=== PATIENT | male | born 1950 | race Caucasian/White ===

== ENCOUNTER 2018-08-02 11:22 | Inpatient (IN) | payer OTHER ==
--- OUTSIDE RECORDS SUMMARY | 2018-08-02 11:52 | XMS REPORT | Clinical Summary ---
:1950 Author Organization [facility] Address [address] [place] [address] Care Team Providers Name Role Phone Armando Quiros Primary Care Provider Davidson Banda Unavailable Allergies Active Allergy Reactions Severity Noted Date Comments Cephalexin Itching Medium 05/28/2017 Medications Medication Sig Dispensed Refills Start Date End Date Status levothyroxine Take 100 mcg by 0 Active (SYNTHROID, mouth Every LEVOTHROID) 100 MCG morning on an tablet empty stomach. montelukast Take 10 mg by 0 Active (SINGULAIR) 10 mg mouth every tablet morning. apixaban (ELIQUIS) 2.5 Take 1 tablet 60 tablet 0 06/14/2017 Active mg Tab tablet (2.5 mg total) by mouth 2 (two) times daily. pantoprazole Take 1 tablet 30 tablet 0 06/15/2017 Active (PROTONIX) 40 MG (40 mg total) tablet by mouth daily. atorvastatin (LIPITOR) Take 1 tablet 30 tablet 0 06/14/2017 06/14/2018 40 MG tablet (40 mg total) by mouth nightly. lisinopril Take 1 tablet 30 tablet 0 06/15/2017 06/15/2018 (PRINIVIL,ZESTRIL) 2.5 (2.5 mg total) MG tablet by mouth daily. metoprolol (LOPRESSOR) Take 1 tablet 60 tablet 0 06/14/2017 06/14/2018 25 MG tablet (25 mg total) by mouth 2 (two) times daily. fluticasone (FLONASE) 2 sprays by 16 g 0 06/14/2017 06/14/2018 50 mcg/actuation nasal Nasal route 2 spray (two) times daily. aspirin 81 MG chewable Take 1 tablet 30 tablet 0 06/15/2017 06/15/2018 tablet (81 mg total) by mouth daily. furosemide (LASIX) 40 Take 1 tablet 30 tablet 0 06/14/2017 06/14/2018 MG tablet (40 mg total) by mouth daily. albuterol HFA Inhale 1 puff 1 Inhaler 0 06/14/2017 06/14/2018 (VENTOLIN HFA) 90 by mouth via mcg/actuation inhaler inhaler every 6 (six) hours as needed for Wheezing. Active Problems Problem Noted Date Acute respiratory failure with hypoxia 06/07/2017 ACBx4, (1.2.18) Dr. Dias 06/05/2017 Left upper quadrant pain 05/30/2017 Splenic infarct 05/28/2017 Abdominal pain 05/28/2017 Influenza 05/28/2017 Hypothyroid 05/28/2017 Acute respiratory insufficiency Postoperative anemia due to acute blood loss Hyperglycemia Family History Medical History Relation Name Comments Anuerysm Father Cancer Mother Relation Name Status Comments Father Mother Social History Tobacco Use Types Packs/Day Years Used Date Former Smoker Quit: 2006 Smokeless Tobacco: Former User Alcohol Use Drinks/Week oz/Week Comments No Sex Assigned at Date Recorded Not on file Job Start Date Occupation Industry Not on file Not on file Not on file Travel History Travel Start Travel End No recent travel history available. Last Filed Vital Signs Not on file Plan of Treatment Not on file Implants Implanted Type Area Packaging Specialist Device Shelf Model / Identifier Expiration Serial / Date Lot Sut Surg Stl 7 18g 18in Mls Mp M655g - Sna Marquette/Ar Sternum J &J:ETHICON 02/01/2022 [id number] / Implanted: Qty: 4 on 06/05/2017 by Brain Dias MD throscopy NA / [id number] Sut Surg Stl 7 18g 18in Mls Mp M655g - Sna [place]/Ar N/A: J &J:ETHICON M655G / Implanted: Qty: 2 on 06/05/2017 by Brain Dias MD throscopy Sternum NA / [id number] Results Not on fileafter 08/01/2017 Insurance Payer Benefit Plan / Group Subscriber ID Type Phone Address MEDICARE MEDICARE A B xxxxxxxxxx Medicare AETNA - MGD CARE AET[employer] INDEMNITY NON CONTR xxxxxxxxx Comm (Home) [place] [address] Advance Directives For more information, please contact:[address] [phone] Code Status Date Activated Date Inactivated Comments Full Code 06/04/2017 11:57 AM 06/14/2017 4:35 PM This code status was determined by: Patient Full Code 06/01/2017 12:50 PM 06/04/2017 11:57 AM This code status was determined by: Patient
--- OUTSIDE RECORDS SUMMARY | 2018-08-02 11:55 | XMS REPORT ---
:1950 [facility] Address [address] [place] [address] Dr. Arizmendi [address] [place] [id number] Care Team Providers Name Role Phone ATIF HERNANDEZ Unavailable Unavailable LEISA CARBONE Unavailable Unavailable Problems This patient has no known problems. Allergies, Adverse Reactions, Alerts This patient has no known allergies or adverse reactions. Medications This patient has no known medications. Results Test Description Test Time Test Comments Text Results Atomic Results Result Comments RAD, CHEST, 1 VIEW, NON 2017-07-23 18:40:00 FINAL REPORT DEPT CLINICAL HISTORY: respiratory failure s/p extubation TECHNIQUE: 1 view of the chest. COMPARISON: 06/12/2017 IMPRESSION: Left lower lung consolidation and a small left pleural effusion are unchanged. The right lung remains relatively well-aerated. The cardiomediastinal silhouette is magnified by technique with sternotomy wires. Signed: Lindsey Leijaeport Verified Date/Time: 07/23/2017 18:40:12 Reading Location: [facility] Radiology Reading Room US CULTURE + SMEAR 2017-07-11 13:26:00 Test Item Value Reference Range Comments CULTURE (BEAKER) (test ikqo=9682) No fungus isolated in 28 days FUNGUS SMEAR (BEAKER) (test loeg=1807) No fungi seen CT, CHEST, WITH [id number] 12:28:00FINAL REPORT HISTORY: LUNG ATELECTASIS COMPARISON : 06/13/2017 Technique : Multiple axial images of the chest were performed from the lung apices to the lung bases with the administration of IV contrast. Images were presented in both the lung and soft tissue windows. This exam was performed according to our departmental dose optimization program which includes automated exposurecontrol, adjustment of the mA and/or kV according to patient size and/or use of iterative reconstructive technique. Comment: The thyroid gland is within normal limits. There is no hilar, mediastinal oraxillary lymphadenopathy. Postsurgical changes are seen in the mediastinum. There is a very small amount of pericardial fluid/ effusion. There is atherosclerotic vascular disease. There is coronary atherosclerosis. The visualized portions of the adrenal glands, pancreas, and kidneys are within normal limits. 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 There is hepatic steatosis. The patient is status post cholecystectomy. The patient is status post sternotomy. Multilevel degenerative disc changes of thethoracic spine are seen. Some surgical clips are seen medially in the right upper thorax. There are some scattered areas of some linear subsegmental atelectasis versus scarring. In the right lower lobe, there is a somewhat elongated nodular density identified measuring up to 1.1 x 0.5 cm which is lessprominent as compared to the prior exam. More likely, this represents an area of some atelectasis orscarring. Either close CT follow-up in 3 months or PET-CT scan is advised to exclude the possibilityof a neoplastic process. In the right upper lobe, there is a stable 0.4 cm nodule. There is a small left- sided pleural effusion which has diminished in size. Adjacent airspace disease likely representsatelectasis or pneumothorax is visualized. Impression: 1. Decrease in size of a small left-sided pleural effusion with adjacent likely atelectasis. 2. Slight decrease in a somewhat elongated nodular density in the right lung base, more likely representing atelectasis versus scarring. Please see above.3. Postsurgical changes in the mediastinum. Signed: Bisi Lilly MDReport Verified Date/Time: 07/03/2017 12:28:56 Reading Location: [facility] Diagnostic Imaging Reading Room - [place] [address] [id number] 11:06:00 Test Item Value Reference Range Comments POC-CREATININE (ATIF) 1.2 mg/dL 0.6-1.3 TESTED AT [facility] (test fcue=6210) [facility] [address] POC-EGFR (BEAKER) (test 60 mL/min/1.73M2 mimf=6530) FUNGUS CULTURE + [id number] 15:22:00 Test Item Value Reference Range Comments CULTURE (BEAKER) (test ewze=8723) <1+ Di albicans FUNGUS SMEAR (BEAKER) (test No fungi seen yuwf=5842) CALCIUM, [id number] 05:53:00 Test Item Value Reference Range Comments CALCIUM IONIZED (BEAKER) (test cgbo=796) 0.99 mmol/L 1.12-1.27 PH, BLOOD (BEAKER) (test azoi=4802) 7.37 CBC W/PLT COUNT & AUTO [id number] 05:22:00 Test Item Value Reference Range Comments WHITE BLOOD CELL COUNT (BEAKER) (test slpl=062) 8.4 K/ L 3.5-10.5 RED BLOOD CELL COUNT (BEAKER) (test cpao=294) 3.03 M/ L 4.63-6.08 HEMOGLOBIN (BEAKER) (test tzui=580) 8.9 GM/DL 13.7-17.5 HEMATOCRIT (BEAKER) (test dfmf=613) 28.4 % 40.1-51.0 MEAN CORPUSCULAR VOLUME (BEAKER) (test hizq=445) 93.7 fL 79.0-92.2 MEAN CORPUSCULAR HEMOGLOBIN (BEAKER) (test 29.4 pg 25.7-32.2 ujdi=216) MEAN CORPUSCULAR HEMOGLOBIN CONC (BEAKER) (test 31.3 GM/DL 32.3-36.5 racy=148) RED CELL DISTRIBUTION WIDTH (BEAKER) (test 14.2 % 11.6-14.4 jdej=604) PLATELET COUNT (BEAKER) (test uzoa=132) 557 K/CU MM 150-450 MEAN PLATELET VOLUME (BEAKER) (test mruv=820) 9.2 fL 9.4-12.4 NUCLEATED RED BLOOD CELLS (BEAKER) (test 0 /100 WBC 0-0 xifl=327) NEUTROPHILS RELATIVE PERCENT (BEAKER) (test 72 % akjg=439) LYMPHOCYTES RELATIVE PERCENT (BEAKER) (test 13 % ueas=260) MONOCYTES RELATIVE PERCENT (BEAKER) (test 11 % rvvz=359) EOSINOPHILS RELATIVE PERCENT (BEAKER) (test 3 % fjfj=481) BASOPHILS RELATIVE PERCENT (BEAKER) (test 1 % lacp=864) NEUTROPHILS ABSOLUTE COUNT (BEAKER) (test 6.00 K/ L 1.78-5.38 pujv=792) LYMPHOCYTES ABSOLUTE COUNT (BEAKER) (test 1.07 K/ L 1.32-3.57 ghcc=078) MONOCYTES ABSOLUTE COUNT (BEAKER) (test 0.91 K/ L 0.30-0.82 rjde=855) EOSINOPHILS ABSOLUTE COUNT (BEAKER) (test 0.28 K/ L 0.04-0.54 cnoe=098) BASOPHILS ABSOLUTE COUNT (BEAKER) (test 0.04 K/ L 0.01-0.08 rvsi=230) IMMATURE GRANULOCYTES-RELATIVE PERCENT (BEAKER) 1 % 0-1 (test tlyu=2599) [id number] 04:30:00 Test Item Value Reference Range Comments PHOSPHORUS (BEAKER) (test rgwe=885) 3.4 mg/dL 2.3-4.7 [id number] 04:30:00 Test Item Value Reference Range Comments MAGNESIUM (BEAKER) (test pbxm=079) 1.9 mg/dL 1.6-2.6 BASIC METABOLIC [id number] 04:30:00 Test Item Value Reference Range Comments SODIUM (BEAKER) (test 139 meq/L 136-145 smde=031) POTASSIUM (BEAKER) (test 4.3 meq/L 3.5-5.1 pdrb=183) CHLORIDE (BEAKER) (test 104 meq/L 98-107 yupo=774) CO2 (BEAKER) (test 28 meq/L 22-29 gtul=853) BLOOD UREA NITROGEN 16 mg/dL 7-21 (BEAKER) (test pprx=680) CREATININE (BEAKER) (test 0.94 mg/dL 0.57-1.25 qovw=116) GLUCOSE RANDOM (BEAKER) 115 mg/dL 70-105 (test jijd=871) CALCIUM (BEAKER) (test 8.8 mg/dL 8.4-10.2 xrvu=445) EGFR (BEAKER) (test 80 mL/min/1.73 sq m ESTIMATED GFR IS NOT ethy=2323) ACCURATE CREATININE CLEARANCE IN PREDICTING GLOMERULAR FILTRATION RATE. ESTIMATED GFR IS NOT APPLICABLE FOR DIALYSIS PATIENTS. CT, CHEST WITH IV CONTRAST- PE TEST [id number] 21:52:00Reason for exam:-& gt;chest painWhat is the patient's sedation requirement?->No SedationFINAL REPORT CLINICAL HISTORY: Chest pain. FINDINGS: Multiple axial images of the chest were performed after the uncomplicated administration of IV contrast, utilizing a pulmonary embolism protocol. Post-processing coronal reformats were created and interpreted. This exam wasperformed according to our departmental dose-optimization program, which includes automated exposurecontrol, adjustment of the mA and/or kV according to patient size and/or use of the iterative reconstruction technique. Study quality: Adequate. Comparison:06/07/2017 Pulmonary arteries: No pulmonary embolism. Lung parenchyma: Stable compressive atelectasis in the left lower lobe. Pleural effusion: Smallleft pleural effusion, slightly increased in size when compared to previous Pneumothorax: None. Tracheobronchial tree: No significant findings. Pulmonary vasculature: No significant findings. Cardiac contours and great vessels: Atherosclerotic coronary artery calcifications and calcifications in the aorta and great vessels arising from the arch. Mediastinum: Trace but decreasing free air and fluid inthe mediastinum, likely related to recent postoperative status Lymph Nodes: No adenopathy in the mediastinum or constance. Skeleton: No acute abnormality. Limited images of upper abdomen: Redemonstrated hypodense portion of the spleen, possibly an infarct IMPRESSION: No pulmonary embolism. Small left pleural effusion, slightly increased in size when compared to previous, with adjacent atelectasis versus pneumonitis. Postsurgical changes in the mediastinum. Signed: Alvino Vargas MDReport Verified Date/Time: 06/13/2017 21:52:51 Reading Location: [address] Reading Room Electronically signed by: ALVINO VARGAS M.D. on 09:52 PMB-TYPE NATRIURETIC FACTOR (BNP)2017-06-13 01:43:00 Test Item Value Reference Range Comments B-TYPE NATRIURETIC PEPTIDE (BEAKER) (test 396 pg/mL 0-100 lgft=337) [id number] 01:34:00 Test Item Value Reference Range Comments PHOSPHORUS (BEAKER) (test powj=156) 2.8 mg/dL 2.3-4.7 [id number] 01:34:00 Test Item Value Reference Range Comments MAGNESIUM (BEAKER) (test agui=426) 2.0 mg/dL 1.6-2.6 BASIC METABOLIC [id number] 01:34:00 Test Item Value Reference Range Comments SODIUM (BEAKER) (test 137 meq/L 136-145 bdfz=545) POTASSIUM (BEAKER) (test 4.1 meq/L 3.5-5.1 sqzu=291) CHLORIDE (BEAKER) (test 102 meq/L 98-107 kwwt=425) CO2 (BEAKER) (test 26 meq/L 22-29 jqtk=453) BLOOD UREA NITROGEN 16 mg/dL 7-21 (BEAKER) (test dtzb=058) CREATININE (BEAKER) (test 0.95 mg/dL 0.57-1.25 rznb=416) GLUCOSE RANDOM (BEAKER) 107 mg/dL 70-105 (test rljs=370) CALCIUM (BEAKER) (test 9.0 mg/dL 8.4-10.2 ggno=448) EGFR (BEAKER) (test 79 mL/min/1.73 sq m ESTIMATED GFR IS NOT ocso=6381) ACCURATE CREATININE CLEARANCE IN PREDICTING GLOMERULAR FILTRATION RATE. ESTIMATED GFR IS NOT APPLICABLE FOR DIALYSIS PATIENTS. CBC W/PLT COUNT & AUTO [id number] 01:27:00 Test Item Value Reference Range Comments WHITE BLOOD CELL COUNT (BEAKER) (test hxbt=351) 9.3 K/ L 3.5-10.5 RED BLOOD CELL COUNT (BEAKER) (test iujy=040) 3.18 M/ L 4.63-6.08 HEMOGLOBIN (BEAKER) (test znrn=244) 9.4 GM/DL 13.7-17.5 HEMATOCRIT (BEAKER) (test rccr=783) 29.6 % 40.1-51.0 MEAN CORPUSCULAR VOLUME (BEAKER) (test wdwx=195) 93.1 fL 79.0-92.2 MEAN CORPUSCULAR HEMOGLOBIN (BEAKER) (test 29.6 pg 25.7-32.2 kjxd=883) MEAN CORPUSCULAR HEMOGLOBIN CONC (BEAKER) (test 31.8 GM/DL 32.3-36.5 qgln=971) RED CELL DISTRIBUTION WIDTH (BEAKER) (test 14.0 % 11.6-14.4 beld=661) PLATELET COUNT (BEAKER) (test txmg=699) 599 K/CU MM 150-450 MEAN PLATELET VOLUME (BEAKER) (test uqzg=218) 9.6 fL 9.4-12.4 NUCLEATED RED BLOOD CELLS (BEAKER) (test 0 /100 WBC 0-0 rpce=705) NEUTROPHILS RELATIVE PERCENT (BEAKER) (test 73 % blqu=095) LYMPHOCYTES RELATIVE PERCENT (BEAKER) (test 13 % yeeh=147) MONOCYTES RELATIVE PERCENT (BEAKER) (test 10 % mwyl=881) EOSINOPHILS RELATIVE PERCENT (BEAKER) (test 3 % obsw=556) BASOPHILS RELATIVE PERCENT (BEAKER) (test 1 % sepc=935) NEUTROPHILS ABSOLUTE COUNT (BEAKER) (test 6.77 K/ L 1.78-5.38 yadf=301) LYMPHOCYTES ABSOLUTE COUNT (BEAKER) (test 1.23 K/ L 1.32-3.57 ojva=022) MONOCYTES ABSOLUTE COUNT (BEAKER) (test 0.92 K/ L 0.30-0.82 khdu=340) EOSINOPHILS ABSOLUTE COUNT (BEAKER) (test 0.27 K/ L 0.04-0.54 wbwr=066) BASOPHILS ABSOLUTE COUNT (BEAKER) (test 0.06 K/ L 0.01-0.08 kxse=965) IMMATURE GRANULOCYTES-RELATIVE PERCENT (BEAKER) 0 % 0-1 (test qdkh=0838) CALCIUM, [id number] 01:25:00 Test Item Value Reference Range Comments CALCIUM IONIZED (BEAKER) (test vuqh=105) 1.11 mmol/L 1.12-1.27 PH, BLOOD (BEAKER) (test pnhl=2754) 7.34 Check serum Ionized Calcium level after 4 hours after IV Calcium replacement.BLOOD [id number] 23:00:00 Test Item Value Reference Range Comments CULTURE (BEAKER) (test gooz=4315) No growth in 5 days BLOOD [id number] 23:00:00 Test Item Value Reference Range Comments CULTURE (BEAKER) (test jimn=5941) No growth in 5 days OCCULT BLOOD, [id number] 15:30:00 Test Item Value Reference Range Comments FECAL OCCULT BLOOD (BEAKER) (test mqzs=778) Negative Negative RAD, CHEST, 1 VIEW, NON [id number] 09:50:00Reason for exam:->respiratory failure s/p extubationShould this be performed at the bedside?->YesFINAL REPORT TECHNIQUE: Frontal chest radiograph dated 2017. CLINICAL HISTORY: Respiratory failure COMPARISON STUDY: Chest radiograph dated 06/12/2017 IMPRESSION:Stable, smallleft pleural effusion with compressive atelectasis. Stable prominent interstitial lung markings and pulmonary vascular congestion. No pneumothorax. Cardiomediastinal silhouette is normal in size. Midline sternotomy wires are intact and well aligned. No fracture. Signed: Julian Olivas MDReport Verified Date/Time: 06/12/2017 09:50:04 Reading Location: [facility] Radiology Reading Room Electronicallysigned by: JULIAN OLIVAS on 06/12/2017 09:50 AMCALCIUM, [id number] 06:07:00 Test Item Value Reference Range Comments CALCIUM IONIZED (BEAKER) (test xuom=107) 1.06 mmol/L 1.12-1.27 PH, BLOOD (BEAKER) (test hsfn=9472) 7.37 Check serum Ionized Calcium level after 4 hours after IV Calcium replacement.[id number] 04:35:00 Test Item Value Reference Range Comments PHOSPHORUS (BEAKER) (test evzs=105) 2.7 mg/dL 2.3-4.7 [id number] 04:35:00 Test Item Value Reference Range Comments MAGNESIUM (BEAKER) (test vnwk=786) 1.6 mg/dL 1.6-2.6 BASIC METABOLIC [id number] 04:35:00 Test Item Value Reference Range Comments SODIUM (BEAKER) (test 138 meq/L 136-145 qpyj=355) POTASSIUM (BEAKER) (test 4.5 meq/L 3.5-5.1 rceq=885) CHLORIDE (BEAKER) (test 104 meq/L 98-107 tgte=057) CO2 (BEAKER) (test 26 meq/L 22-29 iyzh=111) BLOOD UREA NITROGEN 15 mg/dL 7-21 (BEAKER) (test nyjm=431) CREATININE (BEAKER) (test 0.82 mg/dL 0.57-1.25 xtxr=622) GLUCOSE RANDOM (BEAKER) 104 mg/dL 70-105 (test lpws=522) CALCIUM (BEAKER) (test 8.4 mg/dL 8.4-10.2 mdhj=760) EGFR (BEAKER) (test 93 mL/min/1.73 sq m ESTIMATED GFR IS NOT oact=7053) ACCURATE CREATININE CLEARANCE IN PREDICTING GLOMERULAR FILTRATION RATE. ESTIMATED GFR IS NOT APPLICABLE FOR DIALYSIS PATIENTS. CBC W/PLT COUNT & AUTO [id number] 04:02:00 Test Item Value Reference Range Comments WHITE BLOOD CELL COUNT (BEAKER) (test lvlp=555) 8.1 K/ L 3.5-10.5 RED BLOOD CELL COUNT (BEAKER) (test mxxe=920) 2.75 M/ L 4.63-6.08 HEMOGLOBIN (BEAKER) (test xmvc=231) 8.2 GM/DL 13.7-17.5 HEMATOCRIT (BEAKER) (test hlao=485) 25.7 % 40.1-51.0 MEAN CORPUSCULAR VOLUME (BEAKER) (test vsvp=137) 93.5 fL 79.0-92.2 MEAN CORPUSCULAR HEMOGLOBIN (BEAKER) (test 29.8 pg 25.7-32.2 wivo=143) MEAN CORPUSCULAR HEMOGLOBIN CONC (BEAKER) (test 31.9 GM/DL 32.3-36.5 aqpg=375) RED CELL DISTRIBUTION WIDTH (BEAKER) (test 13.8 % 11.6-14.4 anyr=054) PLATELET COUNT (BEAKER) (test ehht=994) 487 K/CU MM 150-450 MEAN PLATELET VOLUME (BEAKER) (test kjvs=239) 9.4 fL 9.4-12.4 NUCLEATED RED BLOOD CELLS (BEAKER) (test 0 /100 WBC 0-0 dtne=791) NEUTROPHILS RELATIVE PERCENT (BEAKER) (test 71 % oiyi=888) LYMPHOCYTES RELATIVE PERCENT (BEAKER) (test 15 % mxow=403) MONOCYTES RELATIVE PERCENT (BEAKER) (test 10 % uwpm=843) EOSINOPHILS RELATIVE PERCENT (BEAKER) (test 3 % jcfl=827) BASOPHILS RELATIVE PERCENT (BEAKER) (test 1 % aaff=930) NEUTROPHILS ABSOLUTE COUNT (BEAKER) (test 5.74 K/ L 1.78-5.38 gnxv=474) LYMPHOCYTES ABSOLUTE COUNT (BEAKER) (test 1.19 K/ L 1.32-3.57 qnir=749) MONOCYTES ABSOLUTE COUNT (BEAKER) (test 0.82 K/ L 0.30-0.82 gaid=550) EOSINOPHILS ABSOLUTE COUNT (BEAKER) (test 0.24 K/ L 0.04-0.54 nnqp=992) BASOPHILS ABSOLUTE COUNT (BEAKER) (test 0.04 K/ L 0.01-0.08 gpax=079) IMMATURE GRANULOCYTES-RELATIVE PERCENT (BEAKER) 1 % 0-1 (test irbf=7405) POCT-GLUCOSE [id number] 16:31:00 Test Item Value Reference Range Comments POC-GLUCOSE METER (BEAKER) 120 mg/dL 70-110 TESTED AT [place] [id number] (test nqua=7716) [place] [address] [id number] 15:30:00 Test Item Value Reference Range Comments MAGNESIUM (BEAKER) (test dqqh=016) 1.9 mg/dL 1.6-2.6 POCT-GLUCOSE [id number] 12:40:00 Test Item Value Reference Range Comments POC-GLUCOSE METER (BEAKER) 104 mg/dL 70-110 TESTED AT [address] (test zlvo=1476) [place] [address] RAD, CHEST, 1 VIEW, NON [id number] 10:08:00Reason for exam:->s/p LLL atelectasisShould this be performed at the bedside?->YesFINAL REPORT CLINICAL HISTORY: s/p LLL atelectasis TECHNIQUE: 1 view of the chest. COMPARISON: 06/10/2017 IMPRESSION: The right central line has been removed. Bilateral airspace opacities appear decreased. Left lower lobe consolidation is again seen. A small left pleural effusion is decreased. The cardiomediastinal silhouette is magnified by technique with sternotomy wires. Signed: Lindsey Leija MDReport Verified Date/Time: 06/11/2017 10:08:53 Reading Location: [facility] Radiology Reading Room BRONCHIAL CULTURE + GRAM [id number] 08:56:00 Test Item Value Reference Range Comments CULTURE (BEAKER) (test <1+ Normal respiratory pavan cjzl=1725) present GRAM STAIN RESULT (BEAKER) No WBCs (test mxqg=1237) GRAM STAIN RESULT (BEAKER) No organisms seen (test iwcd=56896) POCT-GLUCOSE [id number] 08:06:00 Test Item Value Reference Range Comments POC-GLUCOSE METER (BEAKER) 109 mg/dL 70-[address] [facility] [address] (test fqgg=6730) [facility] [address] CALCIUM, [id number] 07:18:00 Test Item Value Reference Range Comments CALCIUM IONIZED (BEAKER) (test qerl=348) 1.11 mmol/L 1.12-1.27 PH, BLOOD (BEAKER) (test uhdv=3910) 7.33 Check serum Ionized Calcium level after 4 hours after IV Calcium replacement.BASIC METABOLIC [id number] 05:47:00 Test Item Value Reference Range Comments SODIUM (BEAKER) (test 140 meq/L 136-145 brak=794) POTASSIUM (BEAKER) (test 4.2 meq/L 3.5-5.1 nbag=279) CHLORIDE (BEAKER) (test 107 meq/L 98-107 gofw=435) CO2 (BEAKER) (test 27 meq/L 22-29 zrmn=345) BLOOD UREA NITROGEN 15 mg/dL 7-21 (BEAKER) (test pdyb=484) CREATININE (BEAKER) (test 0.83 mg/dL 0.57-1.25 yzys=586) GLUCOSE RANDOM (BEAKER) 98 mg/dL 70-105 (test angq=717) CALCIUM (BEAKER) (test 8.5 mg/dL 8.4-10.2 scgn=940) EGFR (BEAKER) (test 92 mL/min/1.73 sq m ESTIMATED GFR IS NOT pnrc=4742) ACCURATE CREATININE CLEARANCE IN PREDICTING GLOMERULAR FILTRATION RATE. ESTIMATED GFR IS NOT APPLICABLE FOR DIALYSIS PATIENTS. CBC (HEMOGRAM ONLY)2017-06-11 05:34:00 Test Item Value Reference Range Comments WHITE BLOOD CELL COUNT (BEAKER) (test trmo=729) 8.4 K/ L 3.5-10.5 RED BLOOD CELL COUNT (BEAKER) (test evlh=274) 2.84 M/ L 4.63-6.08 HEMOGLOBIN (BEAKER) (test zxea=311) 8.3 GM/DL 13.7-17.5 HEMATOCRIT (BEAKER) (test xihl=491) 26.6 % 40.1-51.0 MEAN CORPUSCULAR VOLUME (BEAKER) (test qscu=623) 93.7 fL 79.0-92.2 MEAN CORPUSCULAR HEMOGLOBIN (BEAKER) (test 29.2 pg 25.7-32.2 vtoc=268) MEAN CORPUSCULAR HEMOGLOBIN CONC (BEAKER) (test 31.2 GM/DL 32.3-36.5 tavr=480) RED CELL DISTRIBUTION WIDTH (BEAKER) (test 13.8 % 11.6-14.4 mnls=059) PLATELET COUNT (BEAKER) (test jtnu=909) 473 K/CU MM 150-450 MEAN PLATELET VOLUME (BEAKER) (test mgeu=043) 10.0 fL 9.4-12.4 NUCLEATED RED BLOOD CELLS (BEAKER) (test 0 /100 WBC 0-0 cjjz=727) CBC W/PLT COUNT & AUTO [id number] 05:34:00 Test Item Value Reference Range Comments WHITE BLOOD CELL COUNT (BEAKER) (test uhkm=374) 8.4 K/ L 3.5-10.5 RED BLOOD CELL COUNT (BEAKER) (test zvzb=698) 2.84 M/ L 4.63-6.08 HEMOGLOBIN (BEAKER) (test semi=849) 8.3 GM/DL 13.7-17.5 HEMATOCRIT (BEAKER) (test mafd=033) 26.6 % 40.1-51.0 MEAN CORPUSCULAR VOLUME (BEAKER) (test bvtl=851) 93.7 fL 79.0-92.2 MEAN CORPUSCULAR HEMOGLOBIN (BEAKER) (test 29.2 pg 25.7-32.2 jfdz=136) MEAN CORPUSCULAR HEMOGLOBIN CONC (BEAKER) (test 31.2 GM/DL 32.3-36.5 imgu=288) RED CELL DISTRIBUTION WIDTH (BEAKER) (test 13.8 % 11.6-14.4 wqlc=473) PLATELET COUNT (BEAKER) (test jmcq=618) 473 K/CU MM 150-450 MEAN PLATELET VOLUME (BEAKER) (test nhpc=619) 10.0 fL 9.4-12.4 NUCLEATED RED BLOOD CELLS (BEAKER) (test 0 /100 WBC 0-0 xkws=146) NEUTROPHILS RELATIVE PERCENT (BEAKER) (test 74 % ncqa=294) LYMPHOCYTES RELATIVE PERCENT (BEAKER) (test 14 % wnvr=229) MONOCYTES RELATIVE PERCENT (BEAKER) (test 11 % dcxa=976) EOSINOPHILS RELATIVE PERCENT (BEAKER) (test 2 % lahx=119) BASOPHILS RELATIVE PERCENT (BEAKER) (test 0 % cdtu=930) NEUTROPHILS ABSOLUTE COUNT (BEAKER) (test 6.14 K/ L 1.78-5.38 fjjc=794) LYMPHOCYTES ABSOLUTE COUNT (BEAKER) (test 1.13 K/ L 1.32-3.57 bepw=924) MONOCYTES ABSOLUTE COUNT (BEAKER) (test 0.89 K/ L 0.30-0.82 njel=924) EOSINOPHILS ABSOLUTE COUNT (BEAKER) (test 0.14 K/ L 0.04-0.54 puqm=636) BASOPHILS ABSOLUTE COUNT (BEAKER) (test 0.02 K/ L 0.01-0.08 qiuk=865) IMMATURE GRANULOCYTES-RELATIVE PERCENT (BEAKER) 1 % 0-1 (test addl=3502) POCT-GLUCOSE [id number] 22:34:00 Test Item Value Reference Range Comments POC-GLUCOSE METER (BEAKER) 122 mg/dL 70-[address] [facility] [address] [facility] (test lfcm=2091) [facility] [address] CALCIUM, [id number] 20:54:00 Test Item Value Reference Range Comments CALCIUM IONIZED (BEAKER) (test nwzc=901) 1.14 mmol/L 1.12-1.27 PH, BLOOD (BEAKER) (test jvuh=7617) 7.40 [id number] 17:20:00 Test Item Value Reference Range Comments POTASSIUM (BEAKER) (test jcec=771) 4.2 meq/L 3.5-5.1 [id number] 17:20:00 Test Item Value Reference Range Comments MAGNESIUM (BEAKER) (test cfxi=164) 2.1 mg/dL 1.6-2.6 SPUTUM CULTURE + GRAM [id number] 12:32:00 Test Item Value Reference Range Comments CULTURE (BEAKER) (test 3+ Normal respiratory pavan yzrr=6165) present GRAM STAIN RESULT (BEAKER) 2+ WBCs (test oodp=4675) GRAM STAIN RESULT (BEAKER) 10-15 epithelial cells (test zpoa=538193) GRAM STAIN RESULT (BEAKER) <1+ gram negative rods (test ammj=006410) GRAM STAIN RESULT (BEAKER) <1+ gram positive cocci in pairs (test zhlf=044930) [id number] 10:52:00 Test Item Value Reference Range Comments POTASSIUM (BEAKER) (test ogby=518) 3.7 meq/L 3.5-5.1 8 hours after PO replacement [id number] 10:52:00 Test Item Value Reference Range Comments MAGNESIUM (BEAKER) (test bxzw=520) 2.5 mg/dL 1.6-2.6 8 hours after PO replacement completedRAD, CHEST, 1 VIEW, NON [id number] 08: 35:00Reason for exam:->s/p LLL atelectasisShould this be performed at the bedside?->YesFINAL REPORT CHEST ONE VIEW HISTORY: Left lower lobe atelectasis COMPARISON: 06/09/2017 FINDINGS: Single portable AP examination of the chest was performed. Small left pleural effusion and left lower lobe atelectasis are similar in appearance to the prior study. No pneumothorax is identified. Mild vascular congestion. Minimal subsegmental atelectasis at the right lung base. The cardiac shadow is partially obscured. Right jugular catheter tip is in the region of the SVC. Signed:Sydni Shelby MDReport Verified Date/Time: 06/10/2017 08:35:21 Reading Location: [address] Ortho Consult Reading Room [id number] 03:43:00 Test Item Value Reference Range Comments PHOSPHORUS (BEAKER) (test iuzn=407) 2.3 mg/dL 2.3-4.7 Check Serum Phosphorus level 4 hours after IV phosphorus replacement or 8 hours after PO replacementcompleted.[id number] 03:43:00 Test Item Value Reference Range Comments MAGNESIUM (BEAKER) (test nppe=139) 1.9 mg/dL 1.6-2.6 Check Serum Phosphorus level 4 hours after IV phosphorus replacement or 8 hours after PO replacementcompleted.BASIC METABOLIC [id number] 03:43:00 Test Item Value Reference Range Comments SODIUM (BEAKER) (test 137 meq/L 136-145 dfme=078) POTASSIUM (BEAKER) (test 4.1 meq/L 3.5-5.1 bado=605) CHLORIDE (BEAKER) (test 106 meq/L 98-107 yash=157) CO2 (BEAKER) (test 23 meq/L 22-29 yzhm=314) BLOOD UREA NITROGEN 14 mg/dL 7-21 (BEAKER) (test tmgo=169) CREATININE (BEAKER) (test 0.78 mg/dL 0.57-1.25 jqmo=513) GLUCOSE RANDOM (BEAKER) 105 mg/dL 70-105 (test mygl=973) CALCIUM (BEAKER) (test 8.8 mg/dL 8.4-10.2 ebyw=466) EGFR (BEAKER) (test 99 mL/min/1.73 sq m ESTIMATED GFR IS NOT yrsc=4641) ACCURATE CREATININE CLEARANCE IN PREDICTING GLOMERULAR FILTRATION RATE. ESTIMATED GFR IS NOT APPLICABLE FOR DIALYSIS PATIENTS. Check Serum Phosphorus level 4 hours after IV phosphorus replacement or 8 hours after PO replacementcompleted.CBC W/PLT COUNT & AUTO [id number] 03:17:00 Test Item Value Reference Range Comments WHITE BLOOD CELL COUNT (BEAKER) (test yvgd=336) 9.4 K/ L 3.5-10.5 RED BLOOD CELL COUNT (BEAKER) (test bpwd=422) 2.80 M/ L 4.63-6.08 HEMOGLOBIN (BEAKER) (test ddui=751) 8.3 GM/DL 13.7-17.5 HEMATOCRIT (BEAKER) (test kamm=400) 25.3 % 40.1-51.0 MEAN CORPUSCULAR VOLUME (BEAKER) (test xtlo=704) 90.4 fL 79.0-92.2 MEAN CORPUSCULAR HEMOGLOBIN (BEAKER) (test 29.6 pg 25.7-32.2 kfkq=865) MEAN CORPUSCULAR HEMOGLOBIN CONC (BEAKER) (test 32.8 GM/DL 32.3-36.5 vviq=103) RED CELL DISTRIBUTION WIDTH (BEAKER) (test 13.8 % 11.6-14.4 vdlm=301) PLATELET COUNT (BEAKER) (test fpis=287) 445 K/CU MM 150-450 MEAN PLATELET VOLUME (BEAKER) (test oepw=845) 10.1 fL 9.4-12.4 NUCLEATED RED BLOOD CELLS (BEAKER) (test 0 /100 WBC 0-0 xcez=341) NEUTROPHILS RELATIVE PERCENT (BEAKER) (test 75 % amnh=064) LYMPHOCYTES RELATIVE PERCENT (BEAKER) (test 13 % wpjg=932) MONOCYTES RELATIVE PERCENT (BEAKER) (test 9 % jozd=371) EOSINOPHILS RELATIVE PERCENT (BEAKER) (test 1 % ozrh=732) BASOPHILS RELATIVE PERCENT (BEAKER) (test 0 % lgfg=264) NEUTROPHILS ABSOLUTE COUNT (BEAKER) (test 7.06 K/ L 1.78-5.38 ycwu=400) LYMPHOCYTES ABSOLUTE COUNT (BEAKER) (test 1.26 K/ L 1.32-3.57 napn=785) MONOCYTES ABSOLUTE COUNT (BEAKER) (test 0.88 K/ L 0.30-0.82 ejjc=364) EOSINOPHILS ABSOLUTE COUNT (BEAKER) (test 0.10 K/ L 0.04-0.54 kvmo=273) BASOPHILS ABSOLUTE COUNT (BEAKER) (test 0.03 K/ L 0.01-0.08 chqr=306) IMMATURE GRANULOCYTES-RELATIVE PERCENT (BEAKER) 0 % 0-1 (test kwdu=8087) CALCIUM, [id number] 03:16:00 Test Item Value Reference Range Comments CALCIUM IONIZED (BEAKER) (test tjkh=510) 1.19 mmol/L 1.12-1.27 PH, BLOOD (BEAKER) (test uywt=2702) 7.47 Check serum Ionized Calcium level after 4 hours after IV Calcium replacement.[id number] 22:28:00 Test Item Value Reference Range Comments POTASSIUM (BEAKER) (test zarl=215) 3.6 meq/L 3.5-5.1 Check Serum Potassium level 2 hours after oral potassium replacement completed or 30 min after intravenous potassium replacement.[id number] 22:28:00 Test Item Value Reference Range Comments MAGNESIUM (BEAKER) (test pimg=661) 1.6 mg/dL 1.6-2.6 Check Serum Potassium level 2 hours after oral potassium replacement completed or 30 min after intravenous potassium replacement.POCT-GLUCOSE [id number] 22:19:00 Test Item Value Reference Range Comments POC-GLUCOSE METER (BEAKER) 117 mg/dL 70-110 TESTED AT [address] (test qlia=9460) [facility] [address] CALCIUM, [id number] 21:42:00 Test Item Value Reference Range Comments CALCIUM IONIZED (BEAKER) (test wjkg=344) 1.10 mmol/L 1.12-1.27 PH, BLOOD (BEAKER) (test zzdr=2857) 7.48 Check serum Ionized Calcium level after 4 hours after IV Calcium replacement.POCT-GLUCOSE [id number] 17:37:00 Test Item Value Reference Range Comments POC-GLUCOSE METER (BEAKER) 102 mg/dL 70-110 TESTED AT [address] (test pacw=4990) [facility] [address] RAD, CHEST, 1 VIEW, NON [id number] 17:09:00Reason for exam:->chest pain, and SOB.FINAL REPORT History: Chest pain, shortness of breath Comparison: 06/09/2017, 06/08/2017 Findings: Small left pleural effusion layering out and airspace consolidation in the lower left lung, increased since the prior study. Right lung clear aside from minor subsegmental atelectasisat the right lung base. Minimal right pleural effusion. No pneumothorax. Cardiac shadow partially secured. Sternotomy wires are present. Right jugular catheter tip is in the SVC region. IMPRESSION: Increased airspace consolidation in the lower left lung suggestive of worsening atelectasis or pneumonia. Small left pleural effusion layering out. Signed: Sydni Shelby MDReport Verified Date/Time : 06/09/2017 17:09:52 Reading Location: [facility] B1 C013X Ortho Consult Reading Room [id number] 16:38:00 Test Item Value Reference Range Comments POTASSIUM (BEAKER) (test nuit=751) 3.8 meq/L 3.5-5.1 [id number] 16:38:00 Test Item Value Reference Range Comments MAGNESIUM (BEAKER) (test konc=352) 1.9 mg/dL 1.6-2.6 CALCIUM, [id number] 16:07:00 Test Item Value Reference Range Comments CALCIUM IONIZED (BEAKER) (test amft=528) 1.03 mmol/L 1.12-1.27 PH, BLOOD (BEAKER) (test beec=1101) 7.47 POCT-GLUCOSE [id number] 15:09:00 Test Item Value Reference Range Comments POC-GLUCOSE METER (BEAKER) 85 mg/dL 70-[address] [facility] [address] [facility] (test sfsq=3107) [facility] [address] HEMOGLOBIN AND [id number] 14:02:00 Test Item Value Reference Range Comments HEMOGLOBIN (BEAKER) (test fdez=591) 8.2 GM/DL 13.7-17.5 HEMATOCRIT (BEAKER) (test gics=750) 25.0 % 40.1-51.0 RAD, CHEST, 1 VIEW, NON [id number] 11:54:00Reason for exam:->sobShould this be performed at the bedside?->YesFINAL REPORT History: Shortness of breath Comparison: 06/08/2017 Findings: Since the prior study, the endotracheal tube and nasogastric tube have been removed. Right jugular catheter remains in place, with its tip in the SVC region. Right lung clear. There are mild atelectatic changes in the left lower lobe, unchanged or decreased since the prior study. Minimal pleural effusions. No pneumothorax. Cardiac shadow normal in size. Sternotomy wires are present. Signed: Sydni Shelby MDReport Verified Date/Time: 06/09/2017 11:54:36 Reading Location: [address] Consult Reading Room URINE [id number] 11:20:00 Test Item Value Reference Range Comments CULTURE (BEAKER) (test qttn=6467) No growth VANCOMYCIN LEVEL, [id number] 08:58:00 Test Item Value Reference Range Comments VANCOMYCIN TROUGH (BEAKER) (test akok=779) 10.4 ug/mL 10.0-20.0 Please draw trough 30 minutes prior to AM vancomycin dose on 06/09/17.POCT- GLUCOSE [id number] 07:18:00 Test Item Value Reference Range Comments POC-GLUCOSE METER (BEAKER) 123 mg/dL 70-[address] [facility] [address] (test diwz=6265) [place] [address] CBC W/PLT COUNT & AUTO [id number] 05:50:00 Test Item Value Reference Range Comments WHITE BLOOD CELL COUNT (BEAKER) (test wqxl=400) 10.0 K/ L 3.5-10.5 RED BLOOD CELL COUNT (BEAKER) (test kutw=222) 2.35 M/ L 4.63-6.08 HEMOGLOBIN (BEAKER) (test nkiv=483) 6.8 GM/DL 13.7-17.5 HEMATOCRIT (BEAKER) (test ifbb=821) 21.6 % 40.1-51.0 MEAN CORPUSCULAR VOLUME (BEAKER) (test rnog=253) 91.9 fL 79.0-92.2 MEAN CORPUSCULAR HEMOGLOBIN (BEAKER) (test 28.9 pg 25.7-32.2 snwe=480) MEAN CORPUSCULAR HEMOGLOBIN CONC (BEAKER) (test 31.5 GM/DL 32.3-36.5 npww=039) RED CELL DISTRIBUTION WIDTH (BEAKER) (test 14.1 % 11.6-14.4 kzxe=773) PLATELET COUNT (BEAKER) (test yiee=650) 370 K/CU MM 150-450 MEAN PLATELET VOLUME (BEAKER) (test nqel=543) 10.4 fL 9.4-12.4 NUCLEATED RED BLOOD CELLS (BEAKER) (test 0 /100 WBC 0-0 uuvb=342) NEUTROPHILS RELATIVE PERCENT (BEAKER) (test 79 % mpkx=521) LYMPHOCYTES RELATIVE PERCENT (BEAKER) (test 10 % ybym=636) MONOCYTES RELATIVE PERCENT (BEAKER) (test 10 % adxk=519) EOSINOPHILS RELATIVE PERCENT (BEAKER) (test 1 % hiot=628) BASOPHILS RELATIVE PERCENT (BEAKER) (test 0 % frfp=121) NEUTROPHILS ABSOLUTE COUNT (BEAKER) (test 7.85 K/ L 1.78-5.38 mzsu=715) LYMPHOCYTES ABSOLUTE COUNT (BEAKER) (test 0.96 K/ L 1.32-3.57 rzbo=431) MONOCYTES ABSOLUTE COUNT (BEAKER) (test 0.95 K/ L 0.30-0.82 bvja=955) EOSINOPHILS ABSOLUTE COUNT (BEAKER) (test 0.13 K/ L 0.04-0.54 zrgi=040) BASOPHILS ABSOLUTE COUNT (BEAKER) (test 0.02 K/ L 0.01-0.08 saob=763) IMMATURE GRANULOCYTES-RELATIVE PERCENT (BEAKER) 1 % 0-1 (test ujoj=7903) [id number] 05:12:00 Test Item Value Reference Range Comments PHOSPHORUS (BEAKER) (test uwwn=533) 2.9 mg/dL 2.3-4.7 [id number] 05:12:00 Test Item Value Reference Range Comments MAGNESIUM (BEAKER) (test ickf=457) 2.3 mg/dL 1.6-2.6 BASIC METABOLIC [id number] 05:12:00 Test Item Value Reference Range Comments SODIUM (BEAKER) (test 138 meq/L 136-145 besb=780) POTASSIUM (BEAKER) (test 3.7 meq/L 3.5-5.1 yjpr=375) CHLORIDE (BEAKER) (test 105 meq/L 98-107 ofrp=480) CO2 (BEAKER) (test 27 meq/L 22-29 vhna=631) BLOOD UREA NITROGEN 18 mg/dL 7-21 (BEAKER) (test stgy=030) CREATININE (BEAKER) (test 0.81 mg/dL 0.57-1.25 tbkr=829) GLUCOSE RANDOM (BEAKER) 111 mg/dL 70-105 (test qvzs=797) CALCIUM (BEAKER) (test 8.2 mg/dL 8.4-10.2 yigh=993) EGFR (BEAKER) (test 94 mL/min/1.73 sq m ESTIMATED GFR IS NOT dzlf=9401) ACCURATE CREATININE CLEARANCE IN PREDICTING GLOMERULAR FILTRATION RATE. ESTIMATED GFR IS NOT APPLICABLE FOR DIALYSIS PATIENTS. BASIC METABOLIC [id number] 01:36:00 Test Item Value Reference Range Comments SODIUM (BEAKER) (test 137 meq/L 136-145 veqf=291) POTASSIUM (BEAKER) (test 3.9 meq/L 3.5-5.1 utnd=442) CHLORIDE (BEAKER) (test 103 meq/L 98-107 iqua=493) CO2 (BEAKER) (test 25 meq/L 22-29 vdxk=922) BLOOD UREA NITROGEN 17 mg/dL 7-21 (BEAKER) (test edrj=515) CREATININE (BEAKER) (test 0.78 mg/dL 0.57-1.25 kdbf=493) GLUCOSE RANDOM (BEAKER) 116 mg/dL 70-105 (test ormv=327) CALCIUM (BEAKER) (test 8.0 mg/dL 8.4-10.2 bywd=470) EGFR (BEAKER) (test 99 mL/min/1.73 sq m ESTIMATED GFR IS NOT zeyw=5189) ACCURATE CREATININE CLEARANCE IN PREDICTING GLOMERULAR FILTRATION RATE. ESTIMATED GFR IS NOT APPLICABLE FOR DIALYSIS PATIENTS. [id number] 01:35:00 Test Item Value Reference Range Comments PHOSPHORUS (BEAKER) (test emks=387) 1.7 mg/dL 2.3-4.7 [id number] 01:35:00 Test Item Value Reference Range Comments MAGNESIUM (BEAKER) (test nsyk=394) 2.1 mg/dL 1.6-2.6 CALCIUM, [id number] 01:05:00 Test Item Value Reference Range Comments CALCIUM IONIZED (BEAKER) (test fvku=599) 1.00 mmol/L 1.12-1.27 PH, BLOOD (BEAKER) (test mkux=7952) 7.46 POCT-GLUCOSE [id number] 23:17:00 Test Item Value Reference Range Comments POC-GLUCOSE METER (BEAKER) 118 mg/dL 70-110 TESTED AT [address] (test mpjb=1846) [place] [id number] POCT-GLUCOSE [id number] 22:16:00 Test Item Value Reference Range Comments POC-GLUCOSE METER (BEAKER) 152 mg/dL 70-110 TESTED AT [address] (test wuhs=5106) [place] [id number] BLOOD GAS, [id number] 09:31:00 Test Item Value Reference Range Comments PH ARTERIAL (BEAKER) (test pebb=916) 7.44 7.35-7.45 PCO2 ARTERIAL (BEAKER) (test bzby=679) 40 mmHg 35-45 PO2 ARTERIAL (BEAKER) (test dymu=056) 101 mmHg 80-90 O2 SATURATION ARTERIAL (BEAKER) (test ihqn=172) 97.8 % 96.0-97.0 HCO3 ARTERIAL (BEAKER) (test tvjv=455) 27 mmol/L 21-29 BASE EXCESS ARTERIAL (BEAKER) (test bbdc=689) 2.3 mmol/L -2.0-3.0 PATIENT TEMPERATURE (BEAKER) (test aksv=0679) 37.1 C FIO2 (BEAKER) (test fhrt=9507) 40.0 % [id number] 08:38:00 Test Item Value Reference Range Comments MAGNESIUM (BEAKER) (test knfp=764) 2.6 mg/dL 1.6-2.6 POTASSIUM-STAT [id number] 08:19:00 Test Item Value Reference Range Comments POTASSIUM (BEAKER) (test iuhx=888) 3.4 meq/L 3.6-5.5 GLUCOSE-STAT [id number] 08:19:00 Test Item Value Reference Range Comments GLUCOSE RANDOM (BEAKER) (test npiz=703) 130 mg/dL 70-110 HGB/HCT (H&H) - STAT [id number] 08:19:00 Test Item Value Reference Range Comments HEMOGLOBIN (BEAKER) (test yrjs=523) 9.4 g/dL 13.0-16.8 HEMATOCRIT (BEAKER) (test ldbc=355) 28.0 % 40.0-50.0 SODIUM NA-STAT [id number] 08:15:00 Test Item Value Reference Range Comments SODIUM (BEAKER) (test ltpd=811) 135 meq/L 135-148 CBC W/PLT COUNT & AUTO [id number] 06:18:00 Test Item Value Reference Range Comments WHITE BLOOD CELL COUNT (BEAKER) (test plvm=202) 11.2 K/ L 3.5-10.5 RED BLOOD CELL COUNT (BEAKER) (test ccgu=422) 2.69 M/ L 4.63-6.08 HEMOGLOBIN (BEAKER) (test bttv=930) 7.8 GM/DL 13.7-17.5 HEMATOCRIT (BEAKER) (test lcim=016) 24.4 % 40.1-51.0 MEAN CORPUSCULAR VOLUME (BEAKER) (test bazx=515) 90.7 fL 79.0-92.2 MEAN CORPUSCULAR HEMOGLOBIN (BEAKER) (test 29.0 pg 25.7-32.2 qjnl=908) MEAN CORPUSCULAR HEMOGLOBIN CONC (BEAKER) (test 32.0 GM/DL 32.3-36.5 ugnx=010) RED CELL DISTRIBUTION WIDTH (BEAKER) (test 14.3 % 11.6-14.4 vwfk=726) PLATELET COUNT (BEAKER) (test ppus=151) 313 K/CU MM 150-450 MEAN PLATELET VOLUME (BEAKER) (test lpaq=011) 11.0 fL 9.4-12.4 NUCLEATED RED BLOOD CELLS (BEAKER) (test 0 /100 WBC 0-0 bkaq=252) NEUTROPHILS RELATIVE PERCENT (BEAKER) (test 79 % urpe=179) LYMPHOCYTES RELATIVE PERCENT (BEAKER) (test 10 % qxqa=293) MONOCYTES RELATIVE PERCENT (BEAKER) (test 11 % qqyw=608) EOSINOPHILS RELATIVE PERCENT (BEAKER) (test 0 % dhyf=134) BASOPHILS RELATIVE PERCENT (BEAKER) (test 0 % haxr=751) NEUTROPHILS ABSOLUTE COUNT (BEAKER) (test 8.77 K/ L 1.78-5.38 irbz=463) LYMPHOCYTES ABSOLUTE COUNT (BEAKER) (test 1.09 K/ L 1.32-3.57 codw=817) MONOCYTES ABSOLUTE COUNT (BEAKER) (test 1.19 K/ L 0.30-0.82 gdod=028) EOSINOPHILS ABSOLUTE COUNT (BEAKER) (test 0.03 K/ L 0.04-0.54 psfw=286) BASOPHILS ABSOLUTE COUNT (BEAKER) (test 0.03 K/ L 0.01-0.08 yuip=620) IMMATURE GRANULOCYTES-RELATIVE PERCENT (BEAKER) 1 % 0-1 (test ochn=8601) [id number] 05:19:00 Test Item Value Reference Range Comments PHOSPHORUS (BEAKER) (test lnam=384) 2.2 mg/dL 2.3-4.7 [id number] 05:19:00 Test Item Value Reference Range Comments MAGNESIUM (BEAKER) (test dmqo=384) 3.2 mg/dL 1.6-2.6 BASIC METABOLIC [id number] 05:19:00 Test Item Value Reference Range Comments SODIUM (BEAKER) (test 135 meq/L 136-145 ikbf=909) POTASSIUM (BEAKER) (test 3.8 meq/L 3.5-5.1 eldg=001) CHLORIDE (BEAKER) (test 103 meq/L 98-107 nmom=680) CO2 (BEAKER) (test 25 meq/L 22-29 vbhv=614) BLOOD UREA NITROGEN 17 mg/dL 7-21 (BEAKER) (test wmra=433) CREATININE (BEAKER) (test 0.91 mg/dL 0.57-1.25 omlv=401) GLUCOSE RANDOM (BEAKER) 122 mg/dL 70-105 (test sros=354) CALCIUM (BEAKER) (test 8.2 mg/dL 8.4-10.2 twow=209) EGFR (BEAKER) (test 83 mL/min/1.73 sq m ESTIMATED GFR IS NOT dxni=2440) ACCURATE CREATININE CLEARANCE IN PREDICTING GLOMERULAR FILTRATION RATE. ESTIMATED GFR IS NOT APPLICABLE FOR DIALYSIS PATIENTS. PT/[id number] 04:52:00 Test Item Value Reference Range Comments PROTIME (BEAKER) (test bssc=734) 14.1 seconds 11.7-14.7 INR (BEAKER) (test itmk=719) 1.1 <=5.9 PARTIAL THROMBOPLASTIN TIME (BEAKER) (test 69.1 seconds 22.5-36.0 gktw=129) RECOMMENDED COUMADIN/WARFARIN INR THERAPY RANGESSTANDARD DOSE: 2.0 - 3.0 Includes: PROPHYLAXIS forvenous thrombosis, systemic embolization; TREATMENT for venous thrombosis and/or pulmonary embolus.HIGH RISK: Target INR is 2.5-3.5 for patients with mechanical heart valves.BLOOD GAS, [id number] 04:49:00 Test Item Value Reference Range Comments PH ARTERIAL (BEAKER) (test sgws=717) 7.44 7.35-7.45 PCO2 ARTERIAL (BEAKER) (test nquq=010) 42 mm Hg 35-45 PO2 ARTERIAL (BEAKER) (test hnqu=535) 95 mm Hg 80-90 O2 SATURATION ARTERIAL (BEAKER) (test crrb=254) 97.4 % 96.0-97.0 HCO3 ARTERIAL (BEAKER) (test egbd=226) 28 mmol/L 21-29 BASE EXCESS ARTERIAL (BEAKER) (test fufl=612) 3.2 mmol/L -2.0-3.0 PATIENT TEMPERATURE (BEAKER) (test ivak=6575) 37.2 FIO2 (BEAKER) (test lagx=3960) 40 CALCIUM, [id number] 04:47:00 Test Item Value Reference Range Comments CALCIUM IONIZED (BEAKER) (test nden=564) 1.09 mmol/L 1.12-1.27 PH, BLOOD (BEAKER) (test muuv=2269) 7.44 OXYGEN SATURATION, [id number] 04:42:00 Test Item Value Reference Range Comments O2 SATURATION (MEASURED) (BEAKER) (test npml=6058) 60.6 % RAD, CHEST, 1 VIEW, NON [id number] 04:10:00Reason for exam:->S/p CT surgeryShould this be performed at the bedside?->YesFINAL REPORT CLINICAL INDICATION: Postop Comparison: 06/07/2017 at 1814 hours The cardiomediastinal contours are stable. The lung volumes remain low. Mild central pulmonary vascular congestion is present. Retrocardiac opacity in the left lung may reflect a combination of atelectasis and edema but pneumonitis should be excluded clinically. There is no pneumothorax. Support lines are stable. Signed: Alvino Vargas MDReport Verified Date/Time: 06/08/2017 04:10:59 Reading Location:[address] Reading Room [id number] 23:51: 00 Test Item Value Reference Range Comments MAGNESIUM (BEAKER) (test ygog=364) 2.0 mg/dL 1.6-2.6 BLOOD GAS, [id number] 23:39:00 Test Item Value Reference Range Comments PH ARTERIAL (BEAKER) (test uziq=422) 7.41 7.35-7.45 PCO2 ARTERIAL (BEAKER) (test fruv=709) 45 mmHg 35-45 PO2 ARTERIAL (BEAKER) (test eqva=224) 138 mmHg 80-90 O2 SATURATION ARTERIAL (BEAKER) (test kzcw=689) 98.7 % 96.0-97.0 HCO3 ARTERIAL (BEAKER) (test rumr=693) 27 mmol/L 21-29 BASE EXCESS ARTERIAL (BEAKER) (test gxnk=643) 2.4 mmol/L -2.0-3.0 PATIENT TEMPERATURE (BEAKER) (test ldxd=6951) 38.1 C FIO2 (BEAKER) (test kagf=6576) 80.0 % POTASSIUM-STAT [id number] 23:37:00 Test Item Value Reference Range Comments POTASSIUM (BEAKER) (test ictc=891) 3.5 meq/L 3.6-5.5 RAD, CHEST, 1 VIEW, NON [id number] 19:36:00Reason for exam:->sp bronchoscopy and ETT placementShould this be performed at the bedside?-> YesFINAL REPORT AP view of the chest dated 06/07/2017 COMPARISON: Same day CLINICAL INFORMATION: sp bronchoscopy and ETT placement Comment: Since prior examination, there is interval placement of a nasogastric tube and endotracheal tube. Right IJ central venous catheter remains in place. Heart is normal in size. Pulmonary vasculature is unremarkable. Opacities is seen in the left lower lobe suggestive of subsegmental atelectasis or pneumonia. The rest of the lungs are clear. Signed: Santos Mann [facility] Verified Date/Time: 06/07/2017 19:36:32 Reading Location: [address] Consult Reading Room 07: 36 [id number] 18:10:00 Test Item Value Reference Range Comments POTASSIUM (BEAKER) (test pjvg=284) 4.3 meq/L 3.5-5.1 [id number] 18:10:00 Test Item Value Reference Range Comments MAGNESIUM (BEAKER) (test mdro=634) 2.0 mg/dL 1.6-2.6 [id number] 17:57:00 Test Item Value Reference Range Comments PARTIAL THROMBOPLASTIN TIME (BEAKER) (test 36.4 seconds 22.5-36.0 cuay=618) Prior to initiating heparinGLUCOSE-STAT [id number] 17:27:00 Test Item Value Reference Range Comments GLUCOSE RANDOM (BEAKER) (test yanq=790) 117 mg/dL 70-110 BLOOD GAS, [id number] 17:27:00 Test Item Value Reference Range Comments PH ARTERIAL (BEAKER) (test hofk=729) 7.44 7.35-7.45 PCO2 ARTERIAL (BEAKER) (test chcf=881) 43 mmHg 35-45 PO2 ARTERIAL (BEAKER) (test dgeq=460) 125 mmHg 80-90 O2 SATURATION ARTERIAL (BEAKER) (test rnum=289) 98.4 % 96.0-97.0 HCO3 ARTERIAL (BEAKER) (test amhc=058) 28 mmol/L 21-29 BASE EXCESS ARTERIAL (BEAKER) (test dnnq=161) 4.4 mmol/L -2.0-3.0 PATIENT TEMPERATURE (BEAKER) (test bczd=8640) 38.6 C FIO2 (BEAKER) (test nerb=3958) 100.0 % CT, CHEST WITH IV CONTRAST- PE TEST [id number] 16:35:00FINAL REPORT INDICATION: 67-year-old male with hypoxemia status post coronaryartery bypass surgery two days ago. Evaluate for pulmonary neoplasm. COMPARISON:Chest radiograph June 07, 2017Chest CT May 30, 2017 TECHNIQUE : Chest CT exam WITH intravenous contrast, PE protocol. The exam was performed according to our department dose-optimization protocol, which includes automated exposure control, adjustments of mA and kV according to patient size. Iterative reconstructions are also sometimes employed. FINDINGS:No pulmonary embolism is demonstrated. Evaluation of the pulmonary arteries is adequate to the segmental level. Patient is status post coronary artery bypass surgery. Small amount of air and stranding in the anterior mediastinum is expected postsurgical change. There is no mediastinal hematoma. There is a small low- density layering left pleural effusion associated with collapse of the left lower lobe. There is no pneumonia or pulmonary edema. Tracheostomy tube is in good position. Moderate amount of secretions are noted in the right bronchus and bronchus intermedius. There is a nasogastric tube reaches the stomach, the tip is not imaged. Median sternotomy wires are intact and bone margins are well opposed. No suspicious osseous lesion is demonstrated. Partial imaging of the upper abdomen demonstrates a 4 cm peripheral low-density splenic lesion, as demonstrated on prior CT, probably an infarct. IMPRESSION: No pulmonary embolism. No mediastinal hematoma. Small left pleural effusion with complete collapse of the left lower lobe. Airway secretions. Signed: Mak Robertson MDReport Verified Date/Time: 06/07/2017 16:35:59 Reading Location: [facility] B1 C013Y CT Body Reading Room HEMOGLOBIN AND [id number] 14:16:00 Test Item Value Reference Range Comments HEMOGLOBIN (BEAKER) (test cque=438) 9.6 GM/DL 13.7-17.5 HEMATOCRIT (BEAKER) (test ceji=155) 28.0 % 40.1-51.0 [id number] 14:16:00 Test Item Value Reference Range Comments POTASSIUM (BEAKER) (test vadr=710) 3.7 meq/L 3.5-5.1 CALCIUM, [id number] 14:15:00 Test Item Value Reference Range Comments CALCIUM IONIZED (BEAKER) (test uzap=854) 1.06 mmol/L 1.12-1.27 PH, BLOOD (BEAKER) (test temr=2289) 7.46 BLOOD GAS, [id number] 14:15:00 Test Item Value Reference Range Comments PH ARTERIAL (BEAKER) (test zuos=960) 7.47 7.35-7.45 PCO2 ARTERIAL (BEAKER) (test lqwj=349) 37 mmHg 35-45 PO2 ARTERIAL (BEAKER) (test imej=301) 53 mmHg 80-90 O2 SATURATION ARTERIAL (BEAKER) (test ylod=236) 90.8 % 96.0-97.0 HCO3 ARTERIAL (BEAKER) (test eaos=419) 27 mmol/L 21-29 BASE EXCESS ARTERIAL (BEAKER) (test cgsj=529) 2.9 mmol/L -2.0-3.0 PATIENT TEMPERATURE (BEAKER) (test vbkm=4815) 36.3 C FIO2 (BEAKER) (test wyke=1669) 100.0 % RAD, CHEST, 1 VIEW, NON [id number] 13:04:00Reason for exam:-> hypoxiaShould this be performed at the bedside?->YesFINAL REPORT Chest one view compared to June 07, 2017 Discussion: Interstitial and patchy bilateral pulmonary opacities are overall similar. No gross effusion or pneumothorax. Signed: Malorie Pacheco Verified Date/Time: 06/07/2017 13:04:22 Reading Location: [facility] Radiology Reading Room [id number] 05:54:00 Test Item Value Reference Range Comments PHOSPHORUS (BEAKER) (test ooxx=393) 2.0 mg/dL 2.3-4.7 [id number] 05:54:00 Test Item Value Reference Range Comments MAGNESIUM (BEAKER) (test hjae=616) 2.1 mg/dL 1.6-2.6 BASIC METABOLIC [id number] 05:54:00 Test Item Value Reference Range Comments SODIUM (BEAKER) (test 136 meq/L 136-145 kemq=920) POTASSIUM (BEAKER) (test 4.3 meq/L 3.5-5.1 qylv=779) CHLORIDE (BEAKER) (test 103 meq/L 98-107 hbgj=061) CO2 (BEAKER) (test 24 meq/L 22-29 yjhw=389) BLOOD UREA NITROGEN 13 mg/dL 7-21 (BEAKER) (test nkea=883) CREATININE (BEAKER) (test 0.81 mg/dL 0.57-1.25 eydg=060) GLUCOSE RANDOM (BEAKER) 115 mg/dL 70-105 (test ozjd=760) CALCIUM (BEAKER) (test 8.5 mg/dL 8.4-10.2 tqzq=842) EGFR (BEAKER) (test 94 mL/min/1.73 sq m ESTIMATED GFR IS NOT tapn=8878) ACCURATE CREATININE CLEARANCE IN PREDICTING GLOMERULAR FILTRATION RATE. ESTIMATED GFR IS NOT APPLICABLE FOR DIALYSIS PATIENTS. CBC W/PLT COUNT & AUTO [id number] 05:44:00 Test Item Value Reference Range Comments WHITE BLOOD CELL COUNT (BEAKER) (test ktwq=240) 11.9 K/ L 3.5-10.5 RED BLOOD CELL COUNT (BEAKER) (test yfxc=823) 2.55 M/ L 4.63-6.08 HEMOGLOBIN (BEAKER) (test wuhy=291) 7.6 GM/DL 13.7-17.5 HEMATOCRIT (BEAKER) (test wxmo=411) 24.0 % 40.1-51.0 MEAN CORPUSCULAR VOLUME (BEAKER) (test pger=478) 94.1 fL 79.0-92.2 MEAN CORPUSCULAR HEMOGLOBIN (BEAKER) (test 29.8 pg 25.7-32.2 wvtm=754) MEAN CORPUSCULAR HEMOGLOBIN CONC (BEAKER) (test 31.7 GM/DL 32.3-36.5 zmpa=796) RED CELL DISTRIBUTION WIDTH (BEAKER) (test 13.4 % 11.6-14.4 jnlq=988) PLATELET COUNT (BEAKER) (test zjkd=057) 281 K/CU MM 150-450 MEAN PLATELET VOLUME (BEAKER) (test erek=961) 11.2 fL 9.4-12.4 NUCLEATED RED BLOOD CELLS (BEAKER) (test 0 /100 WBC 0-0 psvb=470) NEUTROPHILS RELATIVE PERCENT (BEAKER) (test 75 % ooez=972) LYMPHOCYTES RELATIVE PERCENT (BEAKER) (test 13 % ykiw=110) MONOCYTES RELATIVE PERCENT (BEAKER) (test 11 % mgxs=005) EOSINOPHILS RELATIVE PERCENT (BEAKER) (test 0 % erhv=708) BASOPHILS RELATIVE PERCENT (BEAKER) (test 0 % mdln=240) NEUTROPHILS ABSOLUTE COUNT (BEAKER) (test 8.91 K/ L 1.78-5.38 wybf=384) LYMPHOCYTES ABSOLUTE COUNT (BEAKER) (test 1.56 K/ L 1.32-3.57 ctmw=956) MONOCYTES ABSOLUTE COUNT (BEAKER) (test 1.36 K/ L 0.30-0.82 ojwy=780) EOSINOPHILS ABSOLUTE COUNT (BEAKER) (test 0.02 K/ L 0.04-0.54 umdt=726) BASOPHILS ABSOLUTE COUNT (BEAKER) (test 0.02 K/ L 0.01-0.08 hvdz=839) IMMATURE GRANULOCYTES-RELATIVE PERCENT (BEAKER) 0 % 0-1 (test shhm=7466) CALCIUM, [id number] 05:19:00 Test Item Value Reference Range Comments CALCIUM IONIZED (BEAKER) (test dpsn=148) 1.12 mmol/L 1.12-1.27 PH, BLOOD (BEAKER) (test lspk=5099) 7.40 OXYGEN SATURATION, [id number] 05:18:00 Test Item Value Reference Range Comments O2 SATURATION (MEASURED) (BEAKER) (test bowt=1335) 73.4 % RAD, CHEST, 1 VIEW, NON [id number] 04:54:00Reason for exam:->S/p CT surgeryShould this be performed at the bedside?->YesFINAL REPORT CLINICAL INDICATION: Postop Comparison: 06/06/2017 The cardiomediastinal contours are stable after mediastinal drain removal. The lung volumes remain low. Central pulmonary vascular prominence and bilateral parenchymal and pleural opacities are similar to previous. There is no pneumothorax after left chest tube removal. A right IJ CVC remains in place. Signed: Alvino Vargas MDReport Verified Date/Time: 06/07/2017 04:54:26 Reading Location: [address] Reading Room POCT-GLUCOSE [id number] 01:10:00 Test Item Value Reference Range Comments POC-GLUCOSE METER (BEAKER) 124 mg/dL 70-110 TESTED AT [address] (test avkb=1460) [place] [id number] POCT-GLUCOSE [id number] 16:24:00 Test Item Value Reference Range Comments POC-GLUCOSE METER (BEAKER) 126 mg/dL 70-110 TESTED AT [address] (test ilor=7246) [place] [id number] POCT-GLUCOSE [id number] 12:38:00 Test Item Value Reference Range Comments POC-GLUCOSE METER (BEAKER) 121 mg/dL 70-110 TESTED AT [address] (test ktsh=2627) [place] [id number] BETA-2 GLYCOPROTEIN [id number] 08:54:00 Test Item Value Reference Range Comments B2 GLYCOPROTEIN AUTOVERIFICATION Refer to individual COMPONENT (test zdxs=4211) B2-Glycoprotein IgG, IgM and IgA results. PLATELET AGGREGATION: FUNCTION [id number] 08:46:00 Test Item Value Reference Range Comments WEAK ADP RESULT(BEAKER) (test 77 % 60-91 xaez=9943) PLATELET FUNCTION SCREEN 60-100% indicates normal INTERP (BEAKER) (test platelet function gigk=6493) [id number] (BEAKER) Umm Díaz MD (test uovl=9800) (electronic signature) PLATELET COUNT AGG (BEAKER) 361 K/CU MM 150-450 (test ltsh=6986) for patients on clopidogrel in past two weeksRAD, CHEST, 1 VIEW, NON [id number] 05:37:00Reason for exam:->S/p CT surgeryShould this be performed at the bedside?->YesFINAL REPORT RAD, CHEST, 1 VIEW, NON DEPT INDICATION: S/p CT surgery COMPARISON: Prior day's exam FINDINGS: Portable frontal view of the chest. IMPRESSION: Support Lines: Interval extubation and removal of the enteric tube. Remaining support hardware is stable. Lungs and pleura: Scattered subsegmental atelectasis noted bilaterally. Persistent small left effusion. Trace righteffusion. No pneumothorax.Heart and mediastinum : Stable contours. Stable surgical changes.Additionalfindings: None. Signed: JR Cervantes Robert MDReport Verified Date/Time: 06/06/2017 05:37:48 Reading Location: [facility] C013Y CT Body Reading Room POCT-GLUCOSE [id number] 05: 25:00 Test Item Value Reference Range Comments POC-GLUCOSE METER (BEAKER) 141 mg/dL 70-110 TESTED AT [address] (test npjz=0871) [facility] [address] BASIC METABOLIC [id number] 05:15:00 Test Item Value Reference Range Comments SODIUM (BEAKER) (test 134 meq/L 136-145 kacu=167) POTASSIUM (BEAKER) (test 4.7 meq/L 3.5-5.1 iqbq=834) CHLORIDE (BEAKER) (test 105 meq/L 98-107 ahfx=858) CO2 (BEAKER) (test 21 meq/L 22-29 fmpr=867) BLOOD UREA NITROGEN 11 mg/dL 7-21 (BEAKER) (test uscw=348) CREATININE (BEAKER) (test 0.85 mg/dL 0.57-1.25 prpz=740) GLUCOSE RANDOM (BEAKER) 125 mg/dL 70-105 (test vskl=258) CALCIUM (BEAKER) (test 7.9 mg/dL 8.4-10.2 mryf=526) EGFR (BEAKER) (test 89 mL/min/1.73 sq m ESTIMATED GFR IS NOT awci=4303) ACCURATE CREATININE CLEARANCE IN PREDICTING GLOMERULAR FILTRATION RATE. ESTIMATED GFR IS NOT APPLICABLE FOR DIALYSIS PATIENTS. [id number] 05:14:00 Test Item Value Reference Range Comments PHOSPHORUS (BEAKER) (test eaej=918) 3.0 mg/dL 2.3-4.7 [id number] 05:14:00 Test Item Value Reference Range Comments MAGNESIUM (BEAKER) (test vksu=989) 2.2 mg/dL 1.6-2.6 OXYGEN SATURATION, [id number] 04:40:00 Test Item Value Reference Range Comments O2 SATURATION (MEASURED) (BEAKER) (test lcya=5138) 63.4 % LACTIC ACID, ARTERIAL, WHOLE [id number] 04:39:00 Test Item Value Reference Range Comments LACTATE BLOOD ARTERIAL (2) (BEAKER) (test 0.6 mmol/L 0.5-2.2 yvrf=3951) Effective 10/06/2015: Units/Reference Range ChangeNew: 0.5-2.2 mmol/L Previous: 5 -20 mg/dLCBC W/PLT COUNT & AUTO [id number] 04:31:00 Test Item Value Reference Range Comments WHITE BLOOD CELL COUNT (BEAKER) (test ligj=435) 10.4 K/ L 3.5-10.5 RED BLOOD CELL COUNT (BEAKER) (test pamx=647) 2.65 M/ L 4.63-6.08 HEMOGLOBIN (BEAKER) (test rktx=902) 8.0 GM/DL 13.7-17.5 HEMATOCRIT (BEAKER) (test jsyn=117) 24.8 % 40.1-51.0 MEAN CORPUSCULAR VOLUME (BEAKER) (test tuwo=135) 93.6 fL 79.0-92.2 MEAN CORPUSCULAR HEMOGLOBIN (BEAKER) (test 30.2 pg 25.7-32.2 efnw=667) MEAN CORPUSCULAR HEMOGLOBIN CONC (BEAKER) (test 32.3 GM/DL 32.3-36.5 lnud=875) RED CELL DISTRIBUTION WIDTH (BEAKER) (test 13.4 % 11.6-14.4 ttkj=403) PLATELET COUNT (BEAKER) (test mkud=627) 249 K/CU MM 150-450 MEAN PLATELET VOLUME (BEAKER) (test syhi=061) 11.2 fL 9.4-12.4 NUCLEATED RED BLOOD CELLS (BEAKER) (test 0 /100 WBC 0-0 eipz=531) NEUTROPHILS RELATIVE PERCENT (BEAKER) (test 87 % mjbh=740) LYMPHOCYTES RELATIVE PERCENT (BEAKER) (test 4 % bsdy=197) MONOCYTES RELATIVE PERCENT (BEAKER) (test 9 % jghk=718) EOSINOPHILS RELATIVE PERCENT (BEAKER) (test 0 % jceo=917) BASOPHILS RELATIVE PERCENT (BEAKER) (test 0 % cppz=083) NEUTROPHILS ABSOLUTE COUNT (BEAKER) (test 9.02 K/ L 1.78-5.38 zbcf=867) LYMPHOCYTES ABSOLUTE COUNT (BEAKER) (test 0.41 K/ L 1.32-3.57 myle=932) MONOCYTES ABSOLUTE COUNT (BEAKER) (test 0.90 K/ L 0.30-0.82 mnei=092) EOSINOPHILS ABSOLUTE COUNT (BEAKER) (test 0.00 K/ L 0.04-0.54 poir=867) BASOPHILS ABSOLUTE COUNT (BEAKER) (test 0.01 K/ L 0.01-0.08 vkmh=502) IMMATURE GRANULOCYTES-RELATIVE PERCENT (BEAKER) 1 % 0-1 (test xeal=2602) CALCIUM, [id number] 04:30:00 Test Item Value Reference Range Comments CALCIUM IONIZED (BEAKER) (test awzn=733) 1.06 mmol/L 1.12-1.27 PH, BLOOD (BEAKER) (test pdri=3889) 7.36 POCT-GLUCOSE [id number] 18:35:00 Test Item Value Reference Range Comments POC-GLUCOSE METER (BEAKER) 141 mg/dL 70-110 TESTED AT [address] (test qvmo=3342) [facility] [address] CARDIOLIPIN ANTIBODIES, IGG AND [id number] 16:28:00 Test Item Value Reference Range Comments ANTICARDIOLIPIN IGG ANTIBODY (BEAKER) (test < GPL aslv=541) ANTICARDIOLIPIN IGM ANTIBODY (BEAKER) (test 1.9 MPL cfoe=691) Anticardiolipin IgG Result Interpretation:NEG: <20 GPL; U/mlPOS: >/=20 GPL; U/mlAnticardiolipin IgM Result Interpretation:NEG: <20 MPL; U/mlPOS: >/=20 MPL; U/mlHGB/HCT (H&H) - STAT [id number] 16:27:00 Test Item Value Reference Range Comments HEMOGLOBIN (BEAKER) (test umgb=753) 9.0 g/dL 13.0-16.8 HEMATOCRIT (BEAKER) (test ujai=605) 26.0 % 40.0-50.0 CALCIUM, [id number] 16:27:00 Test Item Value Reference Range Comments CALCIUM IONIZED (BEAKER) (test rfhg=256) 1.07 mmol/L 1.12-1.27 PH, BLOOD (BEAKER) (test mcnh=4549) 7.43 POTASSIUM-STAT [id number] 16:20:00 Test Item Value Reference Range Comments POTASSIUM (BEAKER) (test euyc=911) 3.8 meq/L 3.6-5.5 BLOOD GAS, [id number] 16:19:00 Test Item Value Reference Range Comments PH ARTERIAL (BEAKER) (test ovjq=298) 7.42 7.35-7.45 PCO2 ARTERIAL (BEAKER) (test niwv=457) 40 mm Hg 35-45 PO2 ARTERIAL (BEAKER) (test pyso=862) 80 mm Hg 80-90 O2 SATURATION ARTERIAL (BEAKER) (test ezzk=690) 96.1 % 96.0-97.0 HCO3 ARTERIAL (BEAKER) (test ofcz=687) 25 mmol/L 21-29 BASE EXCESS ARTERIAL (BEAKER) (test rzcv=781) 0.9 mmol/L -2.0-3.0 PATIENT TEMPERATURE (BEAKER) (test ngvn=7846) 37.0 FIO2 (BEAKER) (test iswb=6620) 100 GLUCOSE-STAT [id number] 16:19:00 Test Item Value Reference Range Comments GLUCOSE RANDOM (BEAKER) (test hiza=076) 142 mg/dL 70-110 POCT-GLUCOSE [id number] 15:42:00 Test Item Value Reference Range Comments POC-GLUCOSE METER (BEAKER) 157 mg/dL 70-[address] [facility] [address] [facility] (test rlpd=7634) [facility] [address] THROMBOELASTOGRAPH (TEG)2017-06-05 14:03:00 Test Item Value Reference Range Comments TEG ACTIVATED CLOTTING TIME (BEAKER) (test 6.3 minutes 4.0-7.0 xrav=4435) TEG FIBRINOGEN ACTIVITY (BEAKER) (test 71.2 degrees 61.0-73.0 nukk=0619) TEG PLT. AGGREGATION (BEAKER) (test kwlp=2115) 65.9 MM 55.0-65.0 TEG FIBRINOLYSIS (BEAKER) (test kolg=9662) 0.6 % 0.0-5.0 TGH ACTIVATED CLOTTING TIME (BEAKER) (test 6.2 minutes 4.0-7.0 zryg=1651) TGH FIBRINOGEN ACTIVITY (BEAKER) (test 73.3 degrees 61.0-73.0 gzrx=7470) TGH PLT. AGGREGATION (BEAKER) (test dtoi=0434) 69.1 MM 55.0-65.0 TGH FIBRINOLYSIS (BEAKER) (test lqxk=6046) 0.0 % 0.0-5.0 RAD, CHEST, 1 VIEW, NON [id number] 13:50:00Reason for exam:->Immediate post cardiothoracic surgery, ET placement.FINAL REPORT TECHNIQUE: Frontal chest radiograph dated 06/05/2017. CLINICAL HISTORY: Immediate post surgery COMPARISON STUDY: Chest radiograph dated 06/03/2017 IMPRESSION: Endotracheal tube is 4.9 cm above the taurus. Enteric tube is seen with the tip below the edge of the film. Left-sided chest tube is in place. Right internal jugular venous catheter tip projects over the regionof the right superior vena cava. No pleural effusion or pneumothorax. Cardiomediastinal silhouette is stable in size. No pulmonary edema. Midline sternotomy wires are intact and well aligned. No fracture. Signed: Julian Olivaseport Verified Date/ Time: 06/05/2017 13:50:03 Reading Location: [facility] Radiology Reading Room CBC W/ PLT COUNT & AUTO [id number] 13:21:00 Test Item Value Reference Range Comments WHITE BLOOD CELL COUNT (BEAKER) (test ssxz=402) 14.9 K/ L 3.5-10.5 RED BLOOD CELL COUNT (BEAKER) (test mzki=228) 3.17 M/ L 4.63-6.08 HEMOGLOBIN (BEAKER) (test khyy=981) 9.5 GM/DL 13.7-17.5 HEMATOCRIT (BEAKER) (test emlb=000) 29.6 % 40.1-51.0 MEAN CORPUSCULAR VOLUME (BEAKER) (test igjv=826) 93.4 fL 79.0-92.2 MEAN CORPUSCULAR HEMOGLOBIN (BEAKER) (test 30.0 pg 25.7-32.2 mbub=935) MEAN CORPUSCULAR HEMOGLOBIN CONC (BEAKER) (test 32.1 GM/DL 32.3-36.5 mjhu=613) RED CELL DISTRIBUTION WIDTH (BEAKER) (test 12.9 % 11.6-14.4 xshn=457) PLATELET COUNT (BEAKER) (test iupt=073) 208 K/CU MM 150-450 MEAN PLATELET VOLUME (BEAKER) (test lfos=369) 10.3 fL 9.4-12.4 NUCLEATED RED BLOOD CELLS (BEAKER) (test 0 /100 WBC 0-0 ormv=203) NEUTROPHILS RELATIVE PERCENT (BEAKER) (test 92 % qgry=539) LYMPHOCYTES RELATIVE PERCENT (BEAKER) (test 4 % jexe=271) MONOCYTES RELATIVE PERCENT (BEAKER) (test 2 % vuls=948) EOSINOPHILS RELATIVE PERCENT (BEAKER) (test 1 % saqn=232) BASOPHILS RELATIVE PERCENT (BEAKER) (test 0 % xmir=918) NEUTROPHILS ABSOLUTE COUNT (BEAKER) (test 13.69 K/ L 1.78-5.38 pwbr=041) LYMPHOCYTES ABSOLUTE COUNT (BEAKER) (test 0.64 K/ L 1.32-3.57 eppp=299) MONOCYTES ABSOLUTE COUNT (BEAKER) (test 0.26 K/ L 0.30-0.82 uunt=920) EOSINOPHILS ABSOLUTE COUNT (BEAKER) (test 0.19 K/ L 0.04-0.54 pjgy=228) BASOPHILS ABSOLUTE COUNT (BEAKER) (test 0.03 K/ L 0.01-0.08 osjr=655) IMMATURE GRANULOCYTES-RELATIVE PERCENT (BEAKER) 1 % 0-1 (test opkr=1326) [id number] 13:18:00 Test Item Value Reference Range Comments MAGNESIUM (BEAKER) (test 2.9 mg/dL 1.6-2.6 Specimen slightly hemolyzed qgxo=299) BASIC METABOLIC [id number] 13:18:00 Test Item Value Reference Range Comments SODIUM (BEAKER) (test 139 meq/L 136-145 ivmt=822) POTASSIUM (BEAKER) (test 4.7 meq/L 3.5-5.1 Specimen slightly yrph=259) hemolyzed CHLORIDE (BEAKER) (test 108 meq/L 98-107 cwdj=328) CO2 (BEAKER) (test 24 meq/L 22-29 krsl=534) BLOOD UREA NITROGEN 10 mg/dL 7-21 (BEAKER) (test bymb=116) CREATININE (BEAKER) (test 0.82 mg/dL 0.57-1.25 Specimen slightly zbbi=730) hemolyzed GLUCOSE RANDOM (BEAKER) 133 mg/dL 70-105 (test gvsc=568) CALCIUM (BEAKER) (test 8.5 mg/dL 8.4-10.2 bvcv=298) EGFR (BEAKER) (test 93 mL/min/1.73 sq m ESTIMATED GFR IS NOT gofk=0866) ACCURATE CREATININE CLEARANCE IN PREDICTING GLOMERULAR FILTRATION RATE. ESTIMATED GFR IS NOT APPLICABLE FOR DIALYSIS PATIENTS. PROTHROMBIN [id number] 13:11:00 Test Item Value Reference Range Comments PROTIME (BEAKER) (test sshc=935) 16.3 seconds 11.7-14.7 INR (BEAKER) (test gjyb=405) 1.3 <=5.9 RECOMMENDED COUMADIN/WARFARIN INR THERAPY RANGESSTANDARD DOSE: 2.0 - 3.0 Includes: PROPHYLAXIS forvenous thrombosis, systemic embolization; TREATMENT for venous thrombosis and/or pulmonary embolus.HIGH RISK: Target INR is 2.5-3.5 for patients with mechanical heart valves.[id number] 13:11:00 Test Item Value Reference Range Comments FIBRINOGEN LEVEL (BEAKER) (test jcus=004) 359 mg/dl 225-434 [id number] 13:11:00 Test Item Value Reference Range Comments PARTIAL THROMBOPLASTIN TIME (BEAKER) (test 32.6 seconds 22.5-36.0 sjwj=241) LACTIC ACID, ARTERIAL, WHOLE [id number] 13:06:00 Test Item Value Reference Range Comments LACTATE BLOOD ARTERIAL (2) 1.1 mmol/L 0.5-2.2 Specimen slightly hemolyzed (BEAKER) (test kzau=4695) Effective 10/06/2015: Units/Reference Range ChangeNew: 0.5-2.2 mmol/L Previous: 5 -20 mg/dLCALCIUM, [id number] 12:50:00 Test Item Value Reference Range Comments CALCIUM IONIZED (BEAKER) (test smwb=868) 1.11 mmol/L 1.12-1.27 PH, BLOOD (BEAKER) (test oilm=0635) 7.32 BLOOD GAS, [id number] 12:50:00 Test Item Value Reference Range Comments PH ARTERIAL (BEAKER) (test niak=853) 7.33 7.35-7.45 PCO2 ARTERIAL (BEAKER) (test moeg=620) 48 mmHg 35-45 PO2 ARTERIAL (BEAKER) (test hhxz=695) 144 mmHg 80-90 O2 SATURATION ARTERIAL (BEAKER) (test nbnr=174) 98.7 % 96.0-97.0 HCO3 ARTERIAL (BEAKER) (test owcs=577) 25 mmol/L 21-29 BASE EXCESS ARTERIAL (BEAKER) (test prsf=637) -1.6 mmol/L -2.0-3.0 PATIENT TEMPERATURE (BEAKER) (test efkw=0271) 36.7 C FIO2 (BEAKER) (test iglg=3257) 60.0 % OXYGEN SATURATION, [id number] 12:45:00 Test Item Value Reference Range Comments O2 SATURATION (MEASURED) (BEAKER) (test ywzt=7948) 52.5 % THROMBOELASTOGRAPH (TEG)2017-06-05 11:35:00 Test Item Value Reference Range Comments TEG ACTIVATED CLOTTING TIME (BEAKER) (test 6.8 minutes 4.0-7.0 rogb=4960) TEG FIBRINOGEN ACTIVITY (BEAKER) (test 52.7 degrees 61.0-73.0 utzg=2325) TEG PLT. AGGREGATION (BEAKER) (test eqrf=2408) 76.1 MM 55.0-65.0 TGH ACTIVATED CLOTTING TIME (BEAKER) (test 6.8 minutes 4.0-7.0 qtoz=8993) TGH FIBRINOGEN ACTIVITY (BEAKER) (test 78.3 degrees 61.0-73.0 luyi=3833) TGH PLT. AGGREGATION (BEAKER) (test cdiq=0090) 60.1 MM 55.0-65.0 [id number] 11:21:00 Test Item Value Reference Range Comments ACTIVATED CLOTTING TIME [address] [facility] [address] [facility] (test gqof=490) [facility] [address] [id number] 11:21:00 Test Item Value Reference Range Comments ACTIVATED CLOTTING TIME 406 sec TESTED AT [address] ([facility]) (test byxu=100) [place] [id number] 11:20:00 Test Item Value Reference Range Comments ACTIVATED CLOTTING TIME 417 sec TESTED AT [address] [facility] (test uimu=449) [place] [id number] PROTHROMBIN [id number] 11:00:00 Test Item Value Reference Range Comments PROTIME ([facility]) (test ggyb=750) 17.9 seconds 11.7-14.7 INR ([facility]) (test gbui=960) 1.5 <=5.9 RECOMMENDED COUMADIN/WARFARIN INR THERAPY RANGESSTANDARD DOSE: 2.0 - 3.0 Includes: PROPHYLAXIS forvenous thrombosis, systemic embolization; TREATMENT for venous thrombosis and/or pulmonary embolus.HIGH RISK: Target INR is 2.5-3.5 for patients with mechanical heart valves.[id number] 11:00:00 Test Item Value Reference Range Comments FIBRINOGEN LEVEL ([facility]) (test cmqs=310) 314 mg/dl 225-434 [id number] 11:00:00 Test Item Value Reference Range Comments PARTIAL THROMBOPLASTIN TIME ([facility]) (test 36.3 seconds 22.5-36.0 wwig=875) PLATELET [id number] 10:58:00 Test Item Value Reference Range Comments PLATELET COUNT ([facility]) 161 K/CU MM 150-450 Discordant result compared to (test bdnk=882) previous result; clinical correlation required. BLOOD GAS, [id number] 10:45:00 Test Item Value Reference Range Comments PH ARTERIAL (BEAKER) (test rtly=369) 7.39 7.35-7.45 PCO2 ARTERIAL (BEAKER) (test ovlk=096) 44 mmHg 35-45 PO2 ARTERIAL (BEAKER) (test ymmf=316) 241 mmHg 80-90 O2 SATURATION ARTERIAL (BEAKER) (test orzf=092) 99.5 % 96.0-97.0 HCO3 ARTERIAL (BEAKER) (test zivw=116) 27 mmol/L 21-29 BASE EXCESS ARTERIAL (BEAKER) (test rblx=788) 1.1 mmol/L -2.0-3.0 PATIENT TEMPERATURE (BEAKER) (test kchy=8697) 35.8 C FIO2 (BEAKER) (test hqcr=5808) 100.0 % SODIUM NA-STAT [id number] 10:45:00 Test Item Value Reference Range Comments SODIUM (BEAKER) (test ncmb=941) 134 meq/L 135-148 GLUCOSE-STAT [id number] 10:45:00 Test Item Value Reference Range Comments GLUCOSE RANDOM (BEAKER) (test wirr=005) 130 mg/dL 70-110 HGB/HCT (H&H) - STAT [id number] 10:45:00 Test Item Value Reference Range Comments HEMOGLOBIN (BEAKER) (test kven=680) 8.5 g/dL 13.0-16.8 HEMATOCRIT (BEAKER) (test ltgy=524) 25.0 % 40.0-50.0 CALCIUM, [id number] 10:44:00 Test Item Value Reference Range Comments CALCIUM IONIZED (BEAKER) (test dfcr=426) 1.03 mmol/L 1.12-1.27 PH, BLOOD (BEAKER) (test bbdx=8628) 7.37 POTASSIUM-STAT [id number] 10:44:00 Test Item Value Reference Range Comments POTASSIUM (BEAKER) (test jdjd=657) 5.2 meq/L 3.6-5.5 POTASSIUM-STAT [id number] 09:58:00 Test Item Value Reference Range Comments POTASSIUM (BEAKER) (test tzyj=871) 6.3 meq/L 3.6-5.5 Specimen not hemolyzed BLOOD GAS, [id number] 09:57:00 Test Item Value Reference Range Comments PH ARTERIAL (BEAKER) (test etdz=891) 7.44 7.35-7.45 PCO2 ARTERIAL (BEAKER) (test rkfm=976) 36 mmHg 35-45 PO2 ARTERIAL (BEAKER) (test piop=094) 247 mmHg 80-90 O2 SATURATION ARTERIAL (BEAKER) (test ddpe=952) 99.6 % 96.0-97.0 HCO3 ARTERIAL (BEAKER) (test jxav=806) 25 mmol/L 21-29 BASE EXCESS ARTERIAL (BEAKER) (test gdpv=393) 0.1 mmol/L -2.0-3.0 PATIENT TEMPERATURE (BEAKER) (test rzsc=7904) 35.0 C FIO2 (BEAKER) (test svvl=7452) 75.0 % SODIUM NA-STAT [id number] 09:57:00 Test Item Value Reference Range Comments SODIUM (BEAKER) (test pwcf=092) 132 meq/L 135-148 HGB/HCT (H&H) - STAT [id number] 09:56:00 Test Item Value Reference Range Comments HEMOGLOBIN (BEAKER) (test wrvt=018) 8.0 g/dL 13.0-16.8 HEMATOCRIT (BEAKER) (test xitc=474) 24.0 % 40.0-50.0 GLUCOSE-STAT [id number] 09:55:00 Test Item Value Reference Range Comments GLUCOSE RANDOM (BEAKER) (test uwmo=743) 85 mg/dL 70-110 BLOOD GAS, [id number] 09:36:00 Test Item Value Reference Range Comments PH ARTERIAL (BEAKER) (test moom=317) 7.37 7.35-7.45 PCO2 ARTERIAL (BEAKER) (test veac=775) 39 mmHg 35-45 PO2 ARTERIAL (BEAKER) (test ifsl=057) 316 mmHg 80-90 O2 SATURATION ARTERIAL (BEAKER) (test lzot=442) 99.7 % 96.0-97.0 HCO3 ARTERIAL (BEAKER) (test ikvc=652) 24 mmol/L 21-29 BASE EXCESS ARTERIAL (BEAKER) (test nrsa=493) -3.1 mmol/L -2.0-3.0 PATIENT TEMPERATURE (BEAKER) (test xufa=0276) 30.8 C FIO2 (BEAKER) (test mvhr=1142) 65.0 % SODIUM NA-STAT [id number] 09:36:00 Test Item Value Reference Range Comments SODIUM (BEAKER) (test vdqh=408) 129 meq/L 135-148 POTASSIUM-STAT [id number] 09:36:00 Test Item Value Reference Range Comments POTASSIUM (BEAKER) (test dteb=731) 5.9 meq/L 3.6-5.5 HGB/HCT (H&H) - STAT [id number] 09:36:00 Test Item Value Reference Range Comments HEMOGLOBIN (BEAKER) (test ljfz=279) 7.8 g/dL 13.0-16.8 HEMATOCRIT (BEAKER) (test byke=888) 23.0 % 40.0-50.0 GLUCOSE-STAT [id number] 09:34:00 Test Item Value Reference Range Comments GLUCOSE RANDOM (BEAKER) (test ebrz=588) 97 mg/dL 70-110 CALCIUM, [id number] 08:17:00 Test Item Value Reference Range Comments CALCIUM IONIZED (BEAKER) (test ktko=033) 1.14 mmol/L 1.12-1.27 PH, BLOOD (BEAKER) (test nyzf=6330) 7.38 BLOOD GAS, [id number] 08:14:00 Test Item Value Reference Range Comments PH ARTERIAL (BEAKER) (test gnuo=367) 7.38 7.35-7.45 PCO2 ARTERIAL (BEAKER) (test oaar=858) 46 mmHg 35-45 PO2 ARTERIAL (BEAKER) (test ctke=140) 232 mmHg 80-90 O2 SATURATION ARTERIAL (BEAKER) (test fcwv=821) 99.5 % 96.0-97.0 HCO3 ARTERIAL (BEAKER) (test dwtm=197) 27 mmol/L 21-29 BASE EXCESS ARTERIAL (BEAKER) (test zpos=092) 1.2 mmol/L -2.0-3.0 PATIENT TEMPERATURE (BEAKER) (test mgew=3970) 37.0 C FIO2 (BEAKER) (test jeqv=0393) 60.0 % HGB/HCT (H&H) - STAT [id number] 08:14:00 Test Item Value Reference Range Comments HEMOGLOBIN (BEAKER) (test leeq=562) 13.2 g/dL 13.0-16.8 HEMATOCRIT (BEAKER) (test doxa=538) 39.0 % 40.0-50.0 GLUCOSE-STAT [id number] 08:13:00 Test Item Value Reference Range Comments GLUCOSE RANDOM (BEAKER) (test fueg=066) 110 mg/dL 70-110 SODIUM NA-STAT [id number] 08:13:00 Test Item Value Reference Range Comments SODIUM (BEAKER) (test wwny=524) 137 meq/L 135-148 POTASSIUM-STAT [id number] 08:13:00 Test Item Value Reference Range Comments POTASSIUM (BEAKER) (test cuxh=687) 4.3 meq/L 3.6-5.5 CALCIUM, [id number] 05:55:00 Test Item Value Reference Range Comments CALCIUM IONIZED (BEAKER) (test laph=598) 1.09 mmol/L 1.12-1.27 PH, BLOOD (BEAKER) (test wsqb=1858) 7.36 [id number] 05:19:00 Test Item Value Reference Range Comments PHOSPHORUS (BEAKER) (test ajxv=080) 3.4 mg/dL 2.3-4.7 [id number] 05:19:00 Test Item Value Reference Range Comments MAGNESIUM (BEAKER) (test nzfw=137) 2.1 mg/dL 1.6-2.6 BASIC METABOLIC [id number] 05:19:00 Test Item Value Reference Range Comments SODIUM (BEAKER) (test 136 meq/L 136-145 whiu=981) POTASSIUM (BEAKER) (test 4.6 meq/L 3.5-5.1 rdpt=877) CHLORIDE (BEAKER) (test 103 meq/L 98-107 fsue=179) CO2 (BEAKER) (test 24 meq/L 22-29 tjyo=105) BLOOD UREA NITROGEN 12 mg/dL 7-21 (BEAKER) (test mpyt=354) CREATININE (BEAKER) (test 1.15 mg/dL 0.57-1.25 lsvf=012) GLUCOSE RANDOM (BEAKER) 101 mg/dL 70-105 (test hloo=889) CALCIUM (BEAKER) (test 9.8 mg/dL 8.4-10.2 oqdl=857) EGFR (BEAKER) (test 63 mL/min/1.73 sq m ESTIMATED GFR IS NOT pcnb=3042) ACCURATE CREATININE CLEARANCE IN PREDICTING GLOMERULAR FILTRATION RATE. ESTIMATED GFR IS NOT APPLICABLE FOR DIALYSIS PATIENTS. [id number] 05:08:00 Test Item Value Reference Range Comments PARTIAL THROMBOPLASTIN TIME (BEAKER) (test 31.3 seconds 22.5-36.0 wwvd=093) PROTHROMBIN TIME/[id number] 05:07:00 Test Item Value Reference Range Comments PROTIME (BEAKER) (test asnz=465) 14.8 seconds 11.7-14.7 INR (BEAKER) (test nezp=372) 1.2 <=5.9 RECOMMENDED COUMADIN/WARFARIN INR THERAPY RANGESSTANDARD DOSE: 2.0 - 3.0 Includes: PROPHYLAXIS forvenous thrombosis, systemic embolization; TREATMENT for venous thrombosis and/or pulmonary embolus.HIGH RISK: Target INR is 2.5-3.5 for patients with mechanical heart valves.CBC W/PLT COUNT & AUTO [id number] 05:03:00 Test Item Value Reference Range Comments WHITE BLOOD CELL COUNT (BEAKER) (test mooc=653) 9.8 K/ L 3.5-10.5 RED BLOOD CELL COUNT (BEAKER) (test dbfq=522) 4.60 M/ L 4.63-6.08 HEMOGLOBIN (BEAKER) (test jknq=550) 13.6 GM/DL 13.7-17.5 HEMATOCRIT (BEAKER) (test vtlj=855) 42.3 % 40.1-51.0 MEAN CORPUSCULAR VOLUME (BEAKER) (test erox=908) 92.0 fL 79.0-92.2 MEAN CORPUSCULAR HEMOGLOBIN (BEAKER) (test 29.6 pg 25.7-32.2 isea=627) MEAN CORPUSCULAR HEMOGLOBIN CONC (BEAKER) (test 32.2 GM/DL 32.3-36.5 trah=010) RED CELL DISTRIBUTION WIDTH (BEAKER) (test 13.0 % 11.6-14.4 fdwr=818) PLATELET COUNT (BEAKER) (test cdvr=450) 379 K/CU MM 150-450 MEAN PLATELET VOLUME (BEAKER) (test qhtj=198) 10.3 fL 9.4-12.4 NUCLEATED RED BLOOD CELLS (BEAKER) (test 0 /100 WBC 0-0 gwjh=316) NEUTROPHILS RELATIVE PERCENT (BEAKER) (test 77 % lmux=852) LYMPHOCYTES RELATIVE PERCENT (BEAKER) (test 12 % isfh=998) MONOCYTES RELATIVE PERCENT (BEAKER) (test 7 % kkkp=110) EOSINOPHILS RELATIVE PERCENT (BEAKER) (test 3 % vtfk=886) BASOPHILS RELATIVE PERCENT (BEAKER) (test 1 % fsde=012) NEUTROPHILS ABSOLUTE COUNT (BEAKER) (test 7.55 K/ L 1.78-5.38 bsor=587) LYMPHOCYTES ABSOLUTE COUNT (BEAKER) (test 1.22 K/ L 1.32-3.57 mxep=485) MONOCYTES ABSOLUTE COUNT (BEAKER) (test 0.72 K/ L 0.30-0.82 xykf=877) EOSINOPHILS ABSOLUTE COUNT (BEAKER) (test 0.25 K/ L 0.04-0.54 vvps=804) BASOPHILS ABSOLUTE COUNT (BEAKER) (test 0.05 K/ L 0.01-0.08 ezrq=744) IMMATURE GRANULOCYTES-RELATIVE PERCENT (BEAKER) 0 % 0-1 (test tjjk=7846) BASIC METABOLIC [id number] 15:32:00 Test Item Value Reference Range Comments SODIUM (BEAKER) (test 137 meq/L 136-145 qwas=134) POTASSIUM (BEAKER) (test 4.4 meq/L 3.5-5.1 pwyn=486) CHLORIDE (BEAKER) (test 101 meq/L 98-107 zxea=258) CO2 (BEAKER) (test 26 meq/L 22-29 jqew=389) BLOOD UREA NITROGEN 13 mg/dL 7-21 (BEAKER) (test bjya=216) CREATININE (BEAKER) (test 1.10 mg/dL 0.57-1.25 hwut=419) GLUCOSE RANDOM (BEAKER) 102 mg/dL 70-105 (test coxm=388) CALCIUM (BEAKER) (test 9.7 mg/dL 8.4-10.2 icou=074) EGFR (BEAKER) (test 66 mL/min/1.73 sq m ESTIMATED GFR IS NOT soid=2327) ACCURATE CREATININE CLEARANCE IN PREDICTING GLOMERULAR FILTRATION RATE. ESTIMATED GFR IS NOT APPLICABLE FOR DIALYSIS PATIENTS. [id number] 15:26:00 Test Item Value Reference Range Comments PARTIAL THROMBOPLASTIN TIME (BEAKER) (test 37.7 seconds 22.5-36.0 kzxj=285) CBC W/PLT COUNT & AUTO [id number] 15:15:00 Test Item Value Reference Range Comments WHITE BLOOD CELL COUNT (BEAKER) (test hker=806) 9.0 K/ L 3.5-10.5 RED BLOOD CELL COUNT (BEAKER) (test sres=884) 4.42 M/ L 4.63-6.08 HEMOGLOBIN (BEAKER) (test xxdl=713) 13.1 GM/DL 13.7-17.5 HEMATOCRIT (BEAKER) (test oljr=488) 40.4 % 40.1-51.0 MEAN CORPUSCULAR VOLUME (BEAKER) (test gcxy=268) 91.4 fL 79.0-92.2 MEAN CORPUSCULAR HEMOGLOBIN (BEAKER) (test 29.6 pg 25.7-32.2 lisa=536) MEAN CORPUSCULAR HEMOGLOBIN CONC (BEAKER) (test 32.4 GM/DL 32.3-36.5 hyqf=572) RED CELL DISTRIBUTION WIDTH (BEAKER) (test 12.8 % 11.6-14.4 upkr=801) PLATELET COUNT (BEAKER) (test gwju=299) 364 K/CU MM 150-450 MEAN PLATELET VOLUME (BEAKER) (test zrcg=807) 10.3 fL 9.4-12.4 NUCLEATED RED BLOOD CELLS (BEAKER) (test 0 /100 WBC 0-0 kroi=152) NEUTROPHILS RELATIVE PERCENT (BEAKER) (test 78 % qhvj=249) LYMPHOCYTES RELATIVE PERCENT (BEAKER) (test 12 % wtcm=170) MONOCYTES RELATIVE PERCENT (BEAKER) (test 8 % cqfr=812) EOSINOPHILS RELATIVE PERCENT (BEAKER) (test 2 % kgww=633) BASOPHILS RELATIVE PERCENT (BEAKER) (test 0 % gmni=217) NEUTROPHILS ABSOLUTE COUNT (BEAKER) (test 6.96 K/ L 1.78-5.38 doqx=874) LYMPHOCYTES ABSOLUTE COUNT (BEAKER) (test 1.06 K/ L 1.32-3.57 kyeq=940) MONOCYTES ABSOLUTE COUNT (BEAKER) (test 0.68 K/ L 0.30-0.82 xkbq=101) EOSINOPHILS ABSOLUTE COUNT (BEAKER) (test 0.19 K/ L 0.04-0.54 kcyt=628) BASOPHILS ABSOLUTE COUNT (BEAKER) (test 0.04 K/ L 0.01-0.08 sqbx=535) IMMATURE GRANULOCYTES-RELATIVE PERCENT (BEAKER) 1 % 0-1 (test lomw=8759) CBC (HEMOGRAM ONLY)2017-06-04 06:04:00 Test Item Value Reference Range Comments WHITE BLOOD CELL COUNT (BEAKER) (test jgcg=137) 9.2 K/ L 3.5-10.5 RED BLOOD CELL COUNT (BEAKER) (test cige=325) 4.55 M/ L 4.63-6.08 HEMOGLOBIN (BEAKER) (test fofu=608) 13.5 GM/DL 13.7-17.5 HEMATOCRIT (BEAKER) (test femu=213) 41.4 % 40.1-51.0 MEAN CORPUSCULAR VOLUME (BEAKER) (test kbez=283) 91.0 fL 79.0-92.2 MEAN CORPUSCULAR HEMOGLOBIN (BEAKER) (test 29.7 pg 25.7-32.2 spms=705) MEAN CORPUSCULAR HEMOGLOBIN CONC (BEAKER) (test 32.6 GM/DL 32.3-36.5 cvkm=743) RED CELL DISTRIBUTION WIDTH (BEAKER) (test 13.0 % 11.6-14.4 snlq=262) PLATELET COUNT (BEAKER) (test rfao=934) 357 K/CU MM 150-450 MEAN PLATELET VOLUME (BEAKER) (test uuys=964) 10.4 fL 9.4-12.4 NUCLEATED RED BLOOD CELLS (BEAKER) (test 0 /100 WBC 0-0 lgra=643) RAD, CHEST, 1 VIEW, NON [id number] 17:57:00Reason for exam:->pna/ CHFShould this be performed at the bedside?->YesFINAL REPORT History: Pneumonia/CHF. Comparison: None. Findings: A single view of the chest is submitted. The cardiomediastinal contours are unremarkable. The lung volumes are low. There is no focal consolidation, pneumothorax, large pleural effusion or evidence of overt pulmonary edema. Right paraspinal surgical clips are present. There is no acute bony abnormality. Signed: Alvino Vargas MDReport Verified Date/Time: 06/03/2017 17:57:05 Reading Location: [address] Reading Room B-TYPE NATRIURETIC FACTOR (BNP)2017-06-03 13:49:00 Test Item Value Reference Range Comments B-TYPE NATRIURETIC PEPTIDE (BEAKER) (test piwq=724) 14 pg/mL 0-100 OCCULT BLOOD, [id number] 15:10:00 Test Item Value Reference Range Comments FECAL OCCULT BLOOD (BEAKER) (test swub=216) Negative Negative SPUTUM CULTURE + GRAM [id number] 15:01:00 Test Item Value Reference Range Comments CULTURE (BEAKER) (test 4+ Normal respiratory pavan repx=8721) present GRAM STAIN RESULT (BEAKER) 4+ WBCs (test oqna=3216) GRAM STAIN RESULT (BEAKER) 0-5 epithelial cells (test qfzj=21695) GRAM STAIN RESULT (BEAKER) 3+ gram negative rods (test iqpl=86715) GRAM STAIN RESULT (BEAKER) 1+ gram positive rods (test lbft=381425) GRAM STAIN RESULT (BEAKER) 4+ gram positive cocci in (test aumw=559097) chains, pairs and clusters EBV-VCA ANTIBODY, [id number] 16:02:00 Test Item Value Reference Range Comments JESUS-CRUZ VCA IGG (BEAKER) (test umvr=737) Positive EBV-VCA ANTIBODY, [id number] 16:02:00 Test Item Value Reference Range Comments JESUS-CRUZ VCA IGM (BEAKER) (test ilcg=979) Negative OCCULT BLOOD, [id number] 08:46:00 Test Item Value Reference Range Comments FECAL OCCULT BLOOD (BEAKER) (test eglv=697) Negative Negative CREATINE KINASE (CK), TOTAL AND [id number] 22:42:00 Test Item Value Reference Range Comments CREATINE KINASE TOTAL (BEAKER) (test hpcr=629) 133 U/L 29-200 CREATINE KINASE-MB (BEAKER) (test tcry=975) 1.5 ng/mL 0.0-6.6 CREATINE KINASE-MB INDEX (BEAKER) (test jsje=968) 1.1 % CK-MB Reference Range:<6.7 Normal6.7-10.0 Borderline>10.0 AbnormalTROPONIN [id number] 22:42:00 Test Item Value Reference Range Comments TROPONIN I (BEAKER) (test iuis=060) < ng/mL 0.00-0.03 Troponin I (TnI) levels must be interpreted in the context of the presenting symptoms and the clinical findings. Elevated TnI levels indicate myocardial damage, but are not specific for ischemic heart disease. Elevated TnI levels are seen in patients with other cardiac conditions (including myocarditis and congestive heart failure), and slight TnI elevations occur in patients with other conditions, including sepsis, renal failure, acidosis, acute neurological disease, and persistent tachyarrhythmia.MONONUCLEOSIS [id number] 22:37:00 Test Item Value Reference Range Comments HETEROPHILE ANTIBODIES (BEAKER) (test cupz=417) Negative Negative CBC (HEMOGRAM ONLY)2017-05-31 22:21:00 Test Item Value Reference Range Comments WHITE BLOOD CELL COUNT (BEAKER) (test lmrx=835) 7.6 K/ L 3.5-10.5 RED BLOOD CELL COUNT (BEAKER) (test wsoa=001) 4.16 M/ L 4.63-6.08 HEMOGLOBIN (BEAKER) (test kxrm=312) 12.4 GM/DL 13.7-17.5 HEMATOCRIT (BEAKER) (test usaq=195) 37.8 % 40.1-51.0 MEAN CORPUSCULAR VOLUME (BEAKER) (test prrx=790) 90.9 fL 79.0-92.2 MEAN CORPUSCULAR HEMOGLOBIN (BEAKER) (test 29.8 pg 25.7-32.2 gfwq=027) MEAN CORPUSCULAR HEMOGLOBIN CONC (BEAKER) (test 32.8 GM/DL 32.3-36.5 wphq=095) RED CELL DISTRIBUTION WIDTH (BEAKER) (test 12.9 % 11.6-14.4 atms=211) PLATELET COUNT (BEAKER) (test aijt=205) 350 K/CU MM 150-450 MEAN PLATELET VOLUME (BEAKER) (test fbkl=003) 10.3 fL 9.4-12.4 NUCLEATED RED BLOOD CELLS (BEAKER) (test 0 /100 WBC 0-0 ckxg=223) OCCULT BLOOD, [id number] 15:02:00 Test Item Value Reference Range Comments FECAL OCCULT BLOOD (BEAKER) (test hqyt=537) Negative Negative [id number] 14:18:00 Test Item Value Reference Range Comments PARTIAL THROMBOPLASTIN TIME (BEAKER) (test 77.9 seconds 22.5-36.0 uhcr=883) [id number] 05:11:00 Test Item Value Reference Range Comments PARTIAL THROMBOPLASTIN TIME (BEAKER) (test 82.7 seconds 22.5-36.0 lxml=754) SPUTUM CULTURE + GRAM [id number] 04:55:00 Test Item Value Reference Range Comments CULTURE (BEAKER) (test Oropharyngeal contamination, ybvi=3887) specimen rejected. Recollect requested. GRAM STAIN RESULT (BEAKER) 1+ WBCs (test rhvz=4943) GRAM STAIN RESULT (BEAKER) >25 epithelial cells (test mevz=21787) GRAM STAIN RESULT (BEAKER) 2+ gram positive cocci in chains, (test swru=94466) pairs and clusters GRAM STAIN RESULT (BEAKER) 1+ gram variable rods (test wdfd=986525) [id number] 22:07:00 Test Item Value Reference Range Comments PARTIAL THROMBOPLASTIN TIME (BEAKER) (test 63.7 seconds 22.5-36.0 bbku=301) [id number] 16:10:00 Test Item Value Reference Range Comments PARTIAL THROMBOPLASTIN TIME (BEAKER) (test 30.9 seconds 22.5-36.0 htnz=886) CT, SOFT TISSUE NECK, [id number] 14:45:00FINAL REPORT CT neck with contrast 05/30/2017 2:40 PM CLINICAL HISTORY: history of squamous cell cancer of neck, 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 Axially acquired data were reformatted in coronal and sagittal planes for further analysis. This examination was performed according to our departmental dose optimization program, which includes automated exposure control, adjustment of the mA and/or kV according to patient size, and/or use of iterated reconstruction technique. COMPARISON: CT chest 05/30/2017 FINDINGS: There is adefect in the subcutaneous tissue overlying the right sternocleidomastoid. There is no mass or abnormal enhancement in the aerodigestive tract or neck soft tissue. There is no lymphadenopathy. There are no fluid collections. There is fatty atrophy of the right parotid gland. The remaining salivary andthyroid glands are unremarkable. There is paranasal sinus mucosal thickening, with shallow fluid levels in the maxillary sinuses. The visualized brain, orbits, and tympanomastoid cavities are unremarkable. There are mild degenerative changes in the cervical spine, without high-grade central canal stenosis. There are subcentimeter nodules in both visualized upper lungs. There are surgical clips in theright paraspinal IMPRESSION:1. No aerodigestive tract: Neck soft tissue mass.2. No cervical lymphadenopathy.3. Sinusitis.4. Bilateral pulmonary nodules. Please reported separately dictated report for the CT chest for further details. Signed: Mark Rao MDReport Verified Date/Time: 05/30/2017 14:45:48 Reading Location: [facility] Radiology Reading Room CT, CHEST, WITH [id number] 14:34: 00Pending dischargeFINAL REPORT TECHNIQUE: CT scan of the chest WITH intravenous contrast. Dose modulation, iterative reconstruction, and/or weight-based adjustment of the mA/kV was utilized to reduce the radiation dose to as low as reasonably achievable. INDICATION: 67-year-old man with history of head/neck squamous cell carcinoma. COMPARISON: None. FINDINGS: LINES/TUBES: None. LUNGS AND AIRWAYS: Central airways are patent. 3 mm subpleural nodule in the right upper lobe (axial lung window series image 14). 3 mm nodule in the left upper lobe (axial lung window series image 15). 4 mm nodule along the right minor fissure, likely perifissural lymph node (axial lung window series image 20). 3 mmnodule along the right major fissure, also likely lymph node (axial lung window series image 21). 3 mm subpleural nodule in the right lower lobe (axial lung window series image 27). 4 mm and 5 mm subpleural nodules in the left lower lobe (axial lung window series images 28 and 32). PLEURA: The pleuralspaces are clear. HEART AND MEDIASTINUM: The visualized thyroid gland is normal. No significant mediastinal, hilar, or axillary lymphadenopathy. The heart and pericardium are within normal limits. Atherosclerotic calcifications in the thoracic aorta. SOFT TISSUES AND BONES: Degenerative changes of thevisualized spine. Multiple clips in the right paraspinal region. UPPER ABDOMEN: Decreased attenuation of the liver, consistent with hepatic steatosis. Prior cholecystectomy wedge-shaped hypodensity in the spleen, likely infarct. IMPRESSION:Few 3-5 mm pulmonary nodules bilaterally, indeterminate. Hepatic steatosis. Suspected splenic infarct. RECOMMENDATION:Follow-up noncontrast chest CT may be obtained in 6 months to reassess pulmonary nodules. Signed: Kaitlynn Rivera MDRdhara Verified Date/Time: 05/30/2017 14:34:32 Reading Location: [facility] C013Y CT Body Reading Room RAD, SINUSES PARANASAL, MIN 3 [id number] 14:03:00Reason for exam:-> coughShould this be performed at the bedside?->YesFINAL REPORT CLINICAL HISTORY: cough TECHNIQUE: Four views of the paranasal sinuses COMPARISON: None IMPRESSION: There are small air-fluid levels in the bilateral maxillary sinuses compatible with acute sinusitis. The paranasal sinuses otherwise appear well-aerated. Signed: Lindsey Leijaort Verified Date/Time : 05/30/2017 14:03:13 Reading Location: [facility] C013W Consult Reading Room [id number] 08:19:00 Test Item Value Reference Range Comments PARTIAL THROMBOPLASTIN TIME (BEAKER) (test 73.2 seconds 22.5-36.0 slys=888) [id number] 01:56:00 Test Item Value Reference Range Comments PARTIAL THROMBOPLASTIN TIME (BEAKER) (test 63.3 seconds 22.5-36.0 xvoj=493) RESPIRATORY PANEL [id number] 19:43:00 Test Item Value Reference Range Comments HUMAN METAPNEUMOVIRUS (BEAKER) (test Not detected Not detected, Inconclusive bife=5511) RHINOVIRUS (BEAKER) (test uezm=9794) Not detected Not detected, Inconclusive INFLUENZA A (BEAKER) (test Not detected Not detected, Inconclusive burz=2751) INFLUENZA A SUBTYPE H1 (BEAKER) Not detected Not detected, Inconclusive (test cvuz=7958) INFLUENZA A SUBTYPE H3 (BEAKER) Not detected Not detected, Inconclusive (test lwzs=0829) INFLUENZA A SUBTYPE H1-2009 (BEAKER) Not detected Not detected, Inconclusive (test wvtn=2670) INFLUENZA B (BEAKER) (test Not detected Not detected, Inconclusive jbhs=9920) RESPIRATORY SYNCYTIAL VIRUS (BEAKER) Not detected Not detected, Inconclusive (test vfgt=4022) PARAINFLUENZA VIRUS 1 (BEAKER) (test Not detected Not detected, Inconclusive bxzq=2868) PARAINFLUENZA VIRUS 2 (BEAKER) (test Not detected Not detected, Inconclusive kuns=4388) PARAINFLUENZA VIRUS 3 (BEAKER) (test Not detected Not detected, Inconclusive qmym=1445) PARAINFLUENZA VIRUS 4 (BEAKER) (test Not detected Not detected, Inconclusive iedt=5694) ADENOVIRUS (BEAKER) (test gkes=3658) Not detected Not detected, Inconclusive CORONAVIRUS 229E (BEAKER) (test Not detected Not detected, Inconclusive cgsv=1464) CORONAVIRUS HKU1 (BEAKER) (test Not detected Not detected, Inconclusive nvkl=2374) CORONAVIRUS NL63 (BEAKER) (test Not detected Not detected, Inconclusive etwi=0220) CORONAVIRUS OC43 (BEAKER) (test Not detected Not detected, Inconclusive gqvg=5872) BORDETELLA PERTUSSIS (BEAKER) (test Not detected Not detected, Inconclusive myiv=9159) CHLAMYDOPHILA PNEUMONIAE (BEAKER) Not detected Not detected, Inconclusive (test xpum=0918) MYCOPLASMA PNEUMONIAE (BEAKER) (test Not detected Not detected, Inconclusive qkai=1830) [id number] 19:01:00 Test Item Value Reference Range Comments PARTIAL THROMBOPLASTIN TIME (BEAKER) (test 50.3 seconds 22.5-36.0 jtmd=955) RAPID INFLUENZA A&B [id number] 14:24:00 Test Item Value Reference Range Comments RAPID INFLUENZA A AG (BEAKER) (test Negative Negative, Inconclusive yyjp=8531) RAPID INFLUENZA B AG (BEAKER) (test Negative Negative, Inconclusive kxwp=9492) [id number] 12:35:00 Test Item Value Reference Range Comments PARTIAL THROMBOPLASTIN TIME (BEAKER) (test 40.5 seconds 22.5-36.0 duzp=688) OCCULT BLOOD, [id number] 09:40:00 Test Item Value Reference Range Comments FECAL OCCULT BLOOD (BEAKER) (test rvqh=357) Negative Negative BASIC METABOLIC [id number] 05:52:00 Test Item Value Reference Range Comments SODIUM (BEAKER) (test 138 meq/L 136-145 krff=615) POTASSIUM (BEAKER) (test 3.8 meq/L 3.5-5.1 ekex=770) CHLORIDE (BEAKER) (test 103 meq/L 98-107 qlut=167) CO2 (BEAKER) (test 25 meq/L 22-29 qdsi=063) BLOOD UREA NITROGEN 9 mg/dL 7-21 (BEAKER) (test tian=441) CREATININE (BEAKER) (test 0.95 mg/dL 0.57-1.25 htal=598) GLUCOSE RANDOM (BEAKER) 109 mg/dL 70-105 (test tqll=833) CALCIUM (BEAKER) (test 9.3 mg/dL 8.4-10.2 xoug=161) EGFR (BEAKER) (test 79 mL/min/1.73 sq m ESTIMATED GFR IS NOT czwg=7844) ACCURATE CREATININE CLEARANCE IN PREDICTING GLOMERULAR FILTRATION RATE. ESTIMATED GFR IS NOT APPLICABLE FOR DIALYSIS PATIENTS. [id number] 05:42:00 Test Item Value Reference Range Comments PARTIAL THROMBOPLASTIN TIME (BEAKER) (test 36.4 seconds 22.5-36.0 ekbm=320) CBC W/PLT COUNT & AUTO [id number] 05:31:00 Test Item Value Reference Range Comments WHITE BLOOD CELL COUNT (BEAKER) (test vylp=403) 7.6 K/ L 3.5-10.5 RED BLOOD CELL COUNT (BEAKER) (test cnhz=968) 4.57 M/ L 4.63-6.08 HEMOGLOBIN (BEAKER) (test tolo=143) 13.6 GM/DL 13.7-17.5 HEMATOCRIT (BEAKER) (test qjwp=295) 41.6 % 40.1-51.0 MEAN CORPUSCULAR VOLUME (BEAKER) (test jomk=797) 91.0 fL 79.0-92.2 MEAN CORPUSCULAR HEMOGLOBIN (BEAKER) (test 29.8 pg 25.7-32.2 bbez=584) MEAN CORPUSCULAR HEMOGLOBIN CONC (BEAKER) (test 32.7 GM/DL 32.3-36.5 hwjb=201) RED CELL DISTRIBUTION WIDTH (BEAKER) (test 12.8 % 11.6-14.4 sntl=580) PLATELET COUNT (BEAKER) (test wons=193) 279 K/CU MM 150-450 MEAN PLATELET VOLUME (BEAKER) (test hdvd=079) 10.9 fL 9.4-12.4 NUCLEATED RED BLOOD CELLS (BEAKER) (test 0 /100 WBC 0-0 wzrg=812) NEUTROPHILS RELATIVE PERCENT (BEAKER) (test 68 % afmm=144) LYMPHOCYTES RELATIVE PERCENT (BEAKER) (test 18 % lipt=978) MONOCYTES RELATIVE PERCENT (BEAKER) (test 11 % ywhu=536) EOSINOPHILS RELATIVE PERCENT (BEAKER) (test 2 % adia=578) BASOPHILS RELATIVE PERCENT (BEAKER) (test 0 % jano=068) NEUTROPHILS ABSOLUTE COUNT (BEAKER) (test 5.19 K/ L 1.78-5.38 xazp=859) LYMPHOCYTES ABSOLUTE COUNT (BEAKER) (test 1.39 K/ L 1.32-3.57 rikr=169) MONOCYTES ABSOLUTE COUNT (BEAKER) (test 0.85 K/ L 0.30-0.82 xiut=282) EOSINOPHILS ABSOLUTE COUNT (BEAKER) (test 0.11 K/ L 0.04-0.54 byzs=229) BASOPHILS ABSOLUTE COUNT (BEAKER) (test 0.02 K/ L 0.01-0.08 gwxu=969) IMMATURE GRANULOCYTES-RELATIVE PERCENT (BEAKER) 0 % 0-1 (test jjkl=0163) [id number] 18:29:00 Test Item Value Reference Range Comments PARTIAL THROMBOPLASTIN TIME (BEAKER) (test 43.4 seconds 22.5-36.0 ulcj=597) Prior to initiating heparinCBC (HEMOGRAM ONLY)2017-05-28 18:22:00 Test Item Value Reference Range Comments WHITE BLOOD CELL COUNT (BEAKER) (test mmlo=765) 9.0 K/ L 3.5-10.5 RED BLOOD CELL COUNT (BEAKER) (test rkyf=914) 4.41 M/ L 4.63-6.08 HEMOGLOBIN (BEAKER) (test gjpf=502) 13.1 GM/DL 13.7-17.5 HEMATOCRIT (BEAKER) (test ypwd=707) 40.0 % 40.1-51.0 MEAN CORPUSCULAR VOLUME (BEAKER) (test kcvy=274) 90.7 fL 79.0-92.2 MEAN CORPUSCULAR HEMOGLOBIN (BEAKER) (test 29.7 pg 25.7-32.2 pvoh=318) MEAN CORPUSCULAR HEMOGLOBIN CONC (BEAKER) (test 32.8 GM/DL 32.3-36.5 iqdq=796) RED CELL DISTRIBUTION WIDTH (BEAKER) (test 12.6 % 11.6-14.4 sicd=477) PLATELET COUNT (BEAKER) (test qkex=887) 267 K/CU MM 150-450 MEAN PLATELET VOLUME (BEAKER) (test tpbg=140) 10.3 fL 9.4-12.4 NUCLEATED RED BLOOD CELLS (BEAKER) (test 0 /100 WBC 0-0 memy=424)
[2018-08-02] MEDS ORDERED: ONDANSETRON 4 MG/2 ML VIAL IV PRN (12:03)
[2018-08-02] MEDS: NA CHLORIDE 0.9% 1,000 ML IV SCH ×3 (12:39→22:43)
[2018-08-02] MEDS: METRONIDAZOLE 500mg IVPB 500 MG/100 ML BAG IV SCH ×2 (12:40→16:31)
[2018-08-02 12:49] VITALS: BMI 31.4
[2018-08-02 13:10] LABS: Urine Appearance CLEAR; Urine Bilirubin NEGATIVE (NEG); Urine Blood NEGATIVE (NEG); Urine Color YELLOW; Urine Glucose NEGATIVE (NEG); Urine Protein NEGATIVE (NEG); Urine Specific Gravity 1.015 (1.005-1.030); Urine Urobilinogen 0.2 mg/dL (0.2-1.0)
[2018-08-02 13:16] LABS: Urine Microscopic Reflex NO UMIC
[2018-08-02 13:53] LABS: Absolute Lymphocytes (CBC) 1.5 K/uL (0.7-4.9); Absolute Monocytes 0.6 K/uL (0.1-1.3); Absolute Neutrophil 4.1 K/uL (1.8-8.0); Eosinophils % 1.6 % (0-4.4); Hematocrit 46.1 % (39.6-49.0); Lymphocytes % 23.4 % (15.3-44.8); MPV 9.7 fL (7.6-11.3); Monocytes % 9.7 % (3.3-12.3); RBC Red Blood Cell Count 5.16 M/uL (4.33-5.43)
[2018-08-02 14:23] LABS: Potassium 3.8 mmol/L (3.5-5.1); Thyroid Stimulating Hormone 2.01 uIU/mL (0.360-3.740)
[2018-08-02 17:59] LABS: Magnesium 2.2 mg/dL (1.8-2.4)
--- NOTE | 2018-08-02 22:28 | EKG ---
Test Date: 2018-08-02 Test Time: 13:29:06 Tab Cutting Machine Operator: JONATAN MEASUREMENT RESULTS: Intervals: Rate: 66 DC: 170 QRSD: 110 QT: 446 QTc: 467 [place]: P: 57 DC: 170 QRS: -48 T: 42 INTERPRETIVE STATEMENTS: Normal sinus rhythm Left anterior fascicular block Nonspecific T wave abnormality Prolonged QT Abnormal ECG Compared to ECG 05/28/2017 09:34:55 Left anterior fascicular block now present T-wave abnormality now present Prolonged QT interval now present Left-axis deviation no longer present Left ventricular hypertrophy no longer present Electronically Signed On 08-02-18 22:27:36 ANTENNA MACHINE OPERATOR by Yaron Chowdary
[2018-08-03] MEDS: METRONIDAZOLE 500mg IVPB 500 MG/100 ML BAG IV SCH ×3 (00:06→17:07)
[2018-08-03] MEDS: NA CHLORIDE 0.9% 1,000 ML IV SCH ×4 (04:51→20:43)
[2018-08-03 06:24] LABS: Potassium 3.9 mmol/L (3.5-5.1)
[2018-08-03] MEDS: SODIUM CHLORIDE 0.9% 10ML INJ IV SCH (08:08)
[2018-08-03] MEDS: PANTOPRAZOLE 40 MG INJ IV SCH (08:08)
--- NOTE | 2018-08-03 16:06 | PN ---
The patient states he feels much hungrier today. Had a semi-solid bowel movement. No further crampi ng. No nausea. I will therefore advance his diet from clear to full liquids over the day. Repeat a KUB in a.m. If it is improved, start solids and if tolerating, he could be discharged. HR/MODL Voice ID: [id number] Report ID: [id number]
[2018-08-04] MEDS: METRONIDAZOLE 500mg IVPB 500 MG/100 ML BAG IV SCH ×3 (00:47→16:23)
[2018-08-04] MEDS: NA CHLORIDE 0.9% 1,000 ML IV SCH ×4 (04:14→20:49)
--- NOTE | 2018-08-04 08:11 | RAD REPORT ---
EXAM DESCRIPTION: RAD - Abdomen W Erect - 08/04/2018 7:05 am CLINICAL HISTORY: Abdominal pain, diarrhea COMPARISON: August 01 TECHNIQUE: Supine and upright views of the abdomen were obtained. FINDINGS: Bowel gas pattern is nonspecific. There is no obstruction, free air or pneumatosis. Cholec ystectomy clips are seen in the right upper quadrant. Prominent costochondral calcifications are seen . No suspicious calcification pattern. Small bowel pattern is less prominent than seen August 01. Prominent degenerative changes are present along with postsurgical change at the lumbosacral junction . No acute bone finding identifiable. IMPRESSION: No obstruction, free air or emergent finding. Small bowel gas pattern is less prominent than seen August 01.
[2018-08-04] MEDS: PANTOPRAZOLE 40 MG INJ IV SCH (08:24)
[2018-08-04] MEDS: SODIUM CHLORIDE 0.9% 10ML INJ IV SCH (08:24)
[2018-08-04] MEDS ORDERED: DEXAMETHASONE 4 MG/ML VIAL IV ONE (16:00)
--- NOTE | 2018-08-04 17:41 | HP ---
Date of Admission: 08/02/2018 Entrance Complaint: Abdominal pain, bloating, anorexia. History Of Present Illness: The patient stated the above-outlined symptoms started approximately 10- 14 days ago with sudden onset. Was seen in the office. A CT scan was done a few days later revealed colitis in the splenic area. He was placed on antibiotics, dietary control as an outpatient, shows s light improvement to begin with and then continued to have the same symptoms. He was dehydrated when seen in the office, decided to admit him for more intensive care. Past History: The patient has not had colitis as such, has had colonoscopies over the past few years as he had a polyp which was removed and then was re-scoped to remove the remaining portion for an ev aluation. The patient also has had significant coronary artery disease. He was culminated in a bypas s a year and half ago, although he has been asymptomatic since. Family History: Noncontributory. Social History: Nonsmoker, nondrinker. Physical Examination: General: The patient is an obviously uncomfortable elderly male, slightly distended abdomen. Vital Signs: Stable. Head and Neck: Normocephalic. Pupils equal and react to light and accommodation. Fundi negative. Tr achea midline. Thyroid not palpable. ENT: Negative. Chest: Clear to P and A. Cardiovascular: PMI in midclavicular line. Heart sounds normal. Peripheral pulses present and equa l bilaterally. Abdomen: Nontender, distended. Hyperactive bowel sounds. No guarding, rebound, tenderness, or rigi dity. Extremities: Moderately dehydrated. Good tone and movement bilaterally. Reflexes are physiologic. Rectal: Deferred. Impression: Acute colitis, dehydration, moderate. Plan: The patient will be admitted, placed on IV fluids, IV antibiotics and dietary control. HR/MODL Voice ID: [id number]
--- NOTE | 2018-08-04 17:56 | PN ---
The patient states he felt okay until he started eating, especially noticed that this morning after h aving a Cream of Wheat, felt bloated and uncomfortable and anorectic once again, like he states he fe lt, this may when he came in. When he was kept n.p.o., his appetite improved and bloating and discomfort were gone. KUB showed some improvement, however, still has a rather nonspecific patte rn. In view of this, it was felt that he probably continues to have an inflammation process, which is not receding. It was therefore converted to a regular admission. Food will be and the co nsultation obtained with Dr. Melo for the possibility of a colonoscopy. One dose of Decadron kyree l also be utilized. HR/MODL Voice ID: [id number] Report ID: [id number]
[2018-08-04] MEDS ORDERED: TEMAZEPAM 15 MG CAP PO PRN (19:42)
[2018-08-05] MEDS: METRONIDAZOLE 500mg IVPB 500 MG/100 ML BAG IV SCH ×3 (01:21→17:01)
[2018-08-05] MEDS ORDERED: DEXAMETHASONE 10 MG/ML VIAL IV ONE (05:00)
[2018-08-05] MEDS: NA CHLORIDE 0.9% 1,000 ML IV SCH ×3 (05:30→21:10)
[2018-08-05] MEDS: SODIUM CHLORIDE 0.9% 10ML INJ IV SCH (09:21)
[2018-08-05] MEDS: PANTOPRAZOLE 40 MG INJ IV SCH (09:21)
[2018-08-05] MEDS ORDERED: METRONIDAZOLE 500mg IVPB 500 MG/100 ML BAG IV SCH (17:00)
[2018-08-05] MEDS ORDERED: Ciprofloxacin 200mg IV 200 MG/100 ML IV.SOLN. IV SCH (21:00)
[2018-08-06] MEDS: NA CHLORIDE 0.9% 1,000 ML IV SCH ×3 (00:42→16:14)
[2018-08-06] MEDS: METRONIDAZOLE 500mg IVPB 500 MG/100 ML BAG IV SCH ×4 (00:42→23:58)
--- NOTE | 2018-08-06 09:06 | RAD REPORT ---
EXAM DESCRIPTION: RAD - Lumbar Spine 3 Views - 08/06/2018 8:26 am CLINICAL HISTORY: Back pain FINDINGS: Moderate old compression fracture L1. Posterior bony encroachment does narrow the spinal c anal. Mild old compression fracture L4. Postsurgical changes involve the lumbosacral spine. The bones are osteoporotic. No dislocation seen
[2018-08-06] MEDS: PANTOPRAZOLE 40 MG INJ IV SCH (09:45)
--- NOTE | 2018-08-06 10:23 | RAD REPORT ---
EXAM DESCRIPTION: RAD - Small Bowel Series - 08/06/2018 9:55 am CLINICAL HISTORY: Abdominal pain/ COMPARISON: None. FINDINGS: Contrast enters the colon by approximately 1 hour The mucosal folds of the small bowel appear normal. No permanent filling defects, obstructing or constricting lesions are seen. The small bowel caliber is normal. IMPRESSION: Unremarkable small bowel series.
[2018-08-06] MEDS: SODIUM CHLORIDE 0.9% 10ML INJ IV SCH (12:49)
--- NOTE | 2018-08-06 13:58 | PN ---
Date of Progress Note: 08/05/2018 The patient states he was relatively okay and started taking solids. Once again he started bloating, discomfort. His diarrhea has not recurred, but he says the bloating is back to baseline, seen by [facility]. A small bowel follow-through will be done to make sure there was no incomplete bowel obstruction. HR/MODL Voice ID: [id number] Report ID: [id number]
--- NOTE | 2018-08-06 23:13 | PN ---
Date of Progress Note: 08/06/2018 The patient's small bowel series is normal. He was started on clear liquids as tolerated, was starte d on a soft diet in the morning and lunch time and as tolerated, will be discharged. Otherwise, afte r discussion with the construction millwright, probability of him undergoing an exploratory procedure for adhesive disease would be strongly considered. HR/MODL Voice ID: [id number] Report ID: [id number]
[2018-08-07] MEDS: NA CHLORIDE 0.9% 1,000 ML IV SCH ×2 (04:03→13:00)
[2018-08-07] MEDS: PANTOPRAZOLE 40 MG INJ IV SCH (08:04)
[2018-08-07] MEDS: METRONIDAZOLE 500mg IVPB 500 MG/100 ML BAG IV SCH ×2 (08:04→17:00)
[2018-08-07] MEDS: SODIUM CHLORIDE 0.9% 10ML INJ IV SCH (08:05)
[2018-08-07] MEDS: SMZ./TMP. 800/160 MG TABLET PO SCH (18:39)
--- NOTE | 2018-08-07 22:29 | PN ---
Date of Progress Note: 08/07/2018 Subjective: The patient tried breakfast this morning and stated he felt reasonably well. However, a fter lunch, he stated the bloating discomfort in the left upper quadrant started all over again, and he felt somewhat similar to his initial symptoms. Associated with this has been some rectal incontin ence and small slightly formed stool. No more diarrhea, but it did contain some barium. Issues were discussed with Dr. Melo, and we will repeat a CT scan to see if there are any changes; and if ne cessary, consult Surgery for possible mechanical problem. Bactrim was also added to the regimen. HR/MODL Voice ID: [id number] Report ID: [id number]
[2018-08-08 04:14] LABS: Absolute Lymphocytes (CBC) 1.3 K/uL (0.7-4.9); Absolute Monocytes 0.8 K/uL (0.1-1.3); Absolute Neutrophil 3.6 K/uL (1.8-8.0); Basophils % 1.1 % (0-1.3); Eosinophils % 3.2 % (0-4.4); Lymphocytes % 22.2 % (15.3-44.8); MPV 10.1 fL (7.6-11.3); Monocytes % 12.7 % (3.3-12.3); RBC Red Blood Cell Count 4.81 M/uL (4.33-5.43)
[2018-08-08 04:24] LABS: Albumin 3.4 g/dL (3.4-5.0); Bilirubin Total 0.3 mg/dL (0.2-1.0); Potassium 4.3 mmol/L (3.5-5.1); Protein, Total 6.1 g/dL (6.4-8.2)
[2018-08-08] MEDS: SMZ./TMP. 800/160 MG TABLET PO SCH ×2 (08:57→12:39)
[2018-08-08] MEDS: PANTOPRAZOLE 40 MG INJ IV SCH (08:57)
[2018-08-08] MEDS: SODIUM CHLORIDE 0.9% 10ML INJ IV SCH (08:58)
[2018-08-08 10:31] VITALS: O2SAT 96
--- NOTE | 2018-08-08 10:41 | RAD REPORT ---
EXAM DESCRIPTION: CT - Abdomen Pelvis W Contrast - 08/08/2018 10:19 am CLINICAL HISTORY: Abdominal pain, suspected colitis, prior cholecystectomy and hernia repair COMPARISON: CT imaging May 2017, CT imaging July 23, 2018 TECHNIQUE: Biphasic, helical CT imaging of the abdomen and pelvis was performed following 100 ml non -ionic IV contrast. Oral contrast was given. All CT scans are performed using dose optimization technique as appropriate and may include automated exposure control or mA/KV adjustment according to patient size. FINDINGS: No suspicious findings in the lung bases. No pericardial thickening or effusion. In the ap ex of the left ventricle there is a 15 x 10 mm area of diminished density compared to the contrast-en hanced lumen and the adjacent myocardium. This is possibly scarred parenchyma from infarction. Thromb us in the left ventricle cannot be excluded. This was not present on prior imaging. Followup cardiac echo may be helpful to exclude any significant finding. Liver shows a pronounced fatty infiltration pattern with no focal liver lesion identifiable. No jimi l thrombus. 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 Acute splenic process is not boo ntified. No pancreatic or peripancreatic acute finding. Moderate-sized duodenal diverticulum is prese nt projecting into the head of the pancreas. This is a stable finding. Cholecystectomy clips are pres ent. No biliary tree dilatation. A 5 centimeter lower pole left renal cyst is present. This is stable. No pyelonephritis or acute pare nchymal process. No bladder abnormalities. No adrenal abnormalities. No gastric dilatation or wall thickening. There is no content within the lumen of the stomach which a ccentuates wall thickness. No acute small bowel finding. The appendix is normal. No colon dilatation or wall thickening seen. A few scattered diverticular are present. No active colon process is identif iable. Patient has a prominent ileocecal valve. Colon is only partially distended by the oral contras t which has reached the rectum. This limits full assessment. No free air, free fluid or inflammatory stranding. No mass or bulky lymphadenopathy. No ascites. No omental thickening seen. Left inguinal hernia repair changes are present. Fat extends into the origin of the right inguinal canal. Inguinal canals are similar to prior imaging back to 2017. Left hydroce le is evident but only partially imaged. Disc and bony degenerative changes are present. There is extensive postsurgical change in the lumbar spine. L1 and L4 compression fractures are present but not clearly different from comparison. Vascular calcifications are present. Bilateral common iliac arteries are enlarged measuring 17-19 mm in size. This is a stable pattern. IMPRESSION: No colitis findings or other acute colon process. No acute GI finding identifiable. Hypodense focus at the apex of the left ventricle noted new from prior imaging. CT imaging of this re gion is limited. Scarring from infarction and left ventricular thrombus are possibilities. Follow-up cardiac echo, if not green party performed for other reasons, may be helpful to better visualize the left v entricular apex. Diffuse fatty infiltration of the liver. Gallbladder is absent.
[2018-08-08 13:55] VITALS: BP 107/75; TEMP 97.7
--- NOTE | 2018-08-08 17:22 | EKG ---
Test Date: 2018-08-08 Test Time: 14:34:21 Business Intelligence Engineer: JONATAN MEASUREMENT RESULTS: Intervals: Rate: 80 DC: 162 QRSD: 108 QT: 388 QTc: 447 Mcgregor: P: 69 DC: 162 QRS: -58 T: 93 INTERPRETIVE STATEMENTS: Normal sinus rhythm Pulmonary disease pattern Left anterior fascicular block Left ventricular hypertrophy with repolarization abnormality Abnormal ECG Compared to ECG 08/02/2018 13:29:06 Left ventricular hypertrophy now present T-wave abnormality no longer present Prolonged QT interval no longer present Electronically Signed On 08-08-18 17:21:58 LABORER PIPELINE by Robert Ambriz
--- NOTE | 2018-08-08 19:42 | PN ---
Date of Progress Note: 08/08/[address] a CT scan today which was essentially normal. There was no mechanical obstruction. No evidence of colitis. The patient actually states he is feeling somewhat better, although he is li mited in his diet. Therefore, the possibility of a mechanical problem still exists. However, he cou ld be discharged and maintain basically a liquid diet with discretion as far as adding solids, and de pending how he is within the next week or so either re-scope or consider a laparoscopy. Cardiac issu e was also identified on the CT scan and the patient is actually going to see the programming coordinator in nex t week or so as part of his workup. HR/MODL Voice ID: [id number] Report ID: [id number]
== END 2018-08-08 15:24 | disposition home or self-care (01) | DRG 392 ==
LOC: 4TH 11:48 → OBSVTOIN 08-08 12:58
PROVIDERS: ADMIT Family Medicine; ATTEND Family Medicine
DX: K52.9 Noninfective gastroenteritis and colitis, unspecified (principal); E86.0 Dehydration; Z86.010 Personal history of colon polyps
CPT/HCPCS: 36415; 72100; 74019; 74177; 74250; 80048; 80053; 81003; 82274; 83735; 84443; 85025; 87045; 87046; 87493; 93005; C9113; G0378; G0379; J1100; J7030; Q9967

== ENCOUNTER 2020-12-29 09:16 | Inpatient (IN) | payer OTHER ==
--- NOTE | 2020-12-29 09:48 | RAD REPORT ---
EXAM DESCRIPTION: RAD - Chest Single View - 12/29/2020 9:33 am CLINICAL HISTORY: SOB Chest pain. COMPARISON: Chest Single View dated 05/28/2017; Chest Pa And Lat (2 Views) dated 05/24/2017; Chest P a And Lat (2 Views) dated 08/19/2016; Chest Pa And Lat (2 Views) dated 07/06/2016 FINDINGS: Portable technique limits examination quality. Mild interstitial pulmonary opacities are present bilaterally, greater on the left, suspicious for pu lmonary edema. The heart is mildly enlarged in size. Postsurgical changes of a CABG noted. No displac ed fractures. IMPRESSION: Mild CHF is suspected.
[2020-12-29] MEDS ORDERED: METHYLPREDNISOLONE 125 MG INJ ONE (09:51)
--- OUTSIDE RECORDS SUMMARY | 2020-12-29 09:54 | XMS REPORT | Continuity of Care Document ---
:1950 Author Organization [facility] t Address [address] [place] [address] Care Team Providers Name Role Phone Chula BASURTO Primary Care Physician Therapy, Covid Infusion Attending Clinician Unavailable Yazan STONE Attending Clinician Doctor Unassigned, Name Attending Clinician Unavailable TISHA HERNANDEZ Attending Clinician Unavailable Ida CARBONE Attending Clinician Unavailable Ida CARBONE Admitting Clinician Unavailable Problems Condition Condition Condition Status Onset Resolution Last Treating Co mments Source Name Details Category Date Date Treatment Clinician Date Acute Acute Disease Active [facility] resp[facility] respirator 06-07 Margaux kes - y failure y failure 00:00: [facility] with with 00 Center hypoxia hypoxia ACBx4, ACBx4, Disease Active [facility] (1.2.18) (1.2.18) 06-05 Remedios Dias 00:00: Medical 00 Center Left upper Left upper Disease Active 2016-[address] quadrant quadrant 2-27 [facility] pain [facility] 00 Center 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 - due to due to Medical acute acute Center blood loss blood loss Hyperglyce Hyperglyce Disease Active [facility] dilshad dilshad [facility] Allergies, Adverse Reactions, Alerts Allergy Allergy Status Severity Reaction(s) Onset Inactive Treating Comm ents Source Name Type Date Date Clinician Cephalex Propensi Active Itching 2016-06 [facility] 07[facility] - adverse 00:00: Medical reaction 00 Center s Family History Family Member Diagnosis Comments Start Date Stop Date Source Natural father Anuerysm [facility] Natural mother Cancer [facility] Social History Social Habit Start Date Stop Date Quantity Comments Source Sex Assigned At [facility] History of Current smoker [facility] - tobacco use Medical Cent[facility] r Alcohol intake 2017-06-05 2017-06-05 Current [facility] - 00:00:00 00:00:00 non-drinker of Medical Ce nter alcohol (finding) Tobacco use and 2017-06-05 2017-06-05 Former user [facility] - exposure 00:00:00 00:00:[address] [facility] Smoking Status Start Date Stop Date Source Former smoker 2017-06-05 00:00:00 2017-06-05 00:00:00 [facility] Medications Ordered Filled Start Stop Current Ordering Indication Dosage Frequency Signature Comments Components Source Medication Medication Date Date Medication? Clinician (SIG) Name Name pantoprazol Yes 40mg QD Take [address] [facility] e 1-12 tablet (40 [facility] - (PROTONIX) 00:00: mg total) Me dical 40 MG 00 by mouth Center tablet daily. levothyroxi Yes 100ug Take [address] ne 1-11 mcg by [facility] - (SYNTHROID, 14:35: mouth Medic al LEVOTHROID) 07 Every Center 100 MCG morning on tablet an empty stomach. montelukast Yes 10mg QD Take [address] [facility] (SINGULAIR) 1-11 by mouth Luke s - 10 mg 14:35: every Medical tablet 07 morning. Center apixaban 2018-0 Yes 2.5mg Q.5D Take [address] [facility] (ELIQUIS) 1-11 tablet [facility] - 2.5 mg Tab 00:00: (2.5 mg Medi west tablet 00 total) by Center mouth 2 (two) times daily. Procedures This patient has no known procedures. Encounters Start End Encounter Admission Attending Care Care Encounter Source Date/Time Date/Time Type Type Clinicians Facility Department ID 2020-12-28 2020-12-28 Nurse Therapy, [facility] [id number] 15:06:34 15:36:34 Visit Adc Rosa Maria [place] [id number] Infusion [place] [id number] Surgical [phone] [place] 053 2020-12-26 2020-12-26 Telephone Yazan [facility] [id number] 00:00:00 00:00:00 peerTransfer [id number] [place] 4.2.7.2.686 [facility] [phone] Primary & 370 Specialty Care 2020-12-25 2020-12-25 Urgent [facility] [id number] 10:39:51 10:59:51 [facility] [id number] [place] [id number] [facility] [id number] nal [address] 2020-12-25 2020-12-25 Orders Doctor MALORIE [id number] 00:00:00 00:00:00 Only Unassigned, YUDELKA [id number] [place] [facility] [id number] [id number] Results Test Description Test Time Test Comments Results Result [facility] e Comments RAD, CHEST, 1 2017-07-23 FINAL REPORT PATIENT VIEW, NON DEPT 18:40:00 ID: [id number] CLINICAL HISTORY: respiratory failure s/p extubation TECHNIQUE: 1 view of the chest. COMPARISON: 06/12/2017 IMPRESSION: Left lower lung consolidation and a small left pleural effusion are unchanged. The right lung remains relatively well-aerated. The cardiomediastinal silhouette is magnified by technique with sternotomy wires. Signed: Lindsey Leija MDReport Verified Date/Time: 07/23/2017 18:40:12 Reading Location: [facility] [address] Radiology Reading Room US CULTURE + SMEAR 2017-07-11 13:26:00 Test Item Value Reference Range Interpretation Comme nts CULTURE (BEAKER) (test code = 1095) No fungus isolated in 28 days FUNGUS SMEAR (BEAKER) (test code = 1406) No fungi seen CT, CHEST, WITH [id number] 12:28:00FINAL REPORT HISTORY: LUNG ATELECTASIS COMPARISON : [...] is a very small amount of pericardial fluid/effusion. There is atherosclerotic vascular disease. There is [...] 0.4 cm nodule. There is a small left-sided pleural effusion which has diminished in size. [...] MDReport Verified Date/Time: 07/03/2017 12:28:56 Reading Location: [facility] Diagnostic Imaging Reading Room - [place] [address] 1120 -[id number] 11:06:00 Test Item Value Reference Range Interpretation Comments POC-CREATININE 1.2 mg/dL 0.6-1.3 TESTED AT [facility] ([facility]) (test [address]177 [facility] code = 1859) [facility] 7703 0 POC-EGFR 60 mL/min/1.73M2 (BEAKER) (test code = 1860) FUNGUS CULTURE + [id number] 15:22:00 Test Item Value Reference Range Interpretation Comments CULTURE (BEAKER) A <1+ Di albicans (test code = 1095) FUNGUS SMEAR No fungi seen (BEAKER) (test code = 1406) CALCIUM, [id number] 05:53:00 Test Item Value Reference Range Interpretation Comments CALCIUM IONIZED (BEAKER) (test 0.99 mmol/L 1.12-1.27 L code = 698) PH, BLOOD (BEAKER) (test code = 7.37 1810) CBC W/PLT COUNT & AUTO [id number] 05:22:00 Test Item Value Reference Range Interpretation Comments WHITE BLOOD CELL COUNT (BEAKER) 8.4 K/ L 3.5-10.5 (test code = 775) RED BLOOD CELL COUNT (BEAKER) 3.03 M/ L 4.63-6.08 L (test code = 761) HEMOGLOBIN (BEAKER) (test code = 8.9 GM/DL 13.7-17.5 L 410) HEMATOCRIT (BEAKER) (test code = 28.4 % 40.1-51.0 L 411) MEAN CORPUSCULAR VOLUME (BEAKER) 93.7 fL 79.0-92.2 H (test code = 753) MEAN CORPUSCULAR HEMOGLOBIN 29.4 pg 25.7-32.2 (BEAKER) (test code = 751) MEAN CORPUSCULAR HEMOGLOBIN CONC 31.3 GM/DL 32.3-36.5 L (BEAKER) (test code = 752) RED CELL DISTRIBUTION WIDTH 14.2 % 11.6-14.4 (BEAKER) (test code = 412) PLATELET COUNT (BEAKER) (test 557 K/CU MM 150-450 H code = 756) MEAN PLATELET VOLUME (BEAKER) 9.2 fL 9.4-12.4 L (test code = 754) NUCLEATED RED BLOOD CELLS 0 /100 WBC 0-0 (BEAKER) (test code = 413) NEUTROPHILS RELATIVE PERCENT 72 % (BEAKER) (test code = 429) LYMPHOCYTES RELATIVE PERCENT 13 % (BEAKER) (test code = 430) MONOCYTES RELATIVE PERCENT 11 % (BEAKER) (test code = 431) EOSINOPHILS RELATIVE PERCENT 3 % (BEAKER) (test code = 432) BASOPHILS RELATIVE PERCENT 1 % (BEAKER) (test code = 437) NEUTROPHILS ABSOLUTE COUNT 6.00 K/ L 1.78-5.38 H (BEAKER) (test code = 670) LYMPHOCYTES ABSOLUTE COUNT 1.07 K/ L 1.32-3.57 L (BEAKER) (test code = 414) MONOCYTES ABSOLUTE COUNT (BEAKER) 0.91 K/ L 0.30-0.82 H (test code = 415) EOSINOPHILS ABSOLUTE COUNT 0.28 K/ L 0.04-0.54 (BEAKER) (test code = 416) BASOPHILS ABSOLUTE COUNT (BEAKER) 0.04 K/ L 0.01-0.08 (test code = 417) IMMATURE GRANULOCYTES-RELATIVE 1 % 0-1 PERCENT (BEAKER) (test code = 2801) [id number] 04:30:00 Test Item Value Reference Range Interpretation Comments PHOSPHORUS (BEAKER) (test code = 3.4 mg/dL 2.3-4.7 604) [id number] 04:30:00 Test Item Value Reference Range Interpretation Comments MAGNESIUM (BEAKER) (test code = 1.9 mg/dL 1.6-2.6 627) BASIC METABOLIC [id number] 04:30:00 Test Item Value Reference Range Interpretation Comments SODIUM (BEAKER) 139 meq/L 136-145 (test code = 381) POTASSIUM (BEAKER) 4.3 meq/L 3.5-5.1 (test code = 379) CHLORIDE (BEAKER) 104 meq/L 98-107 (test code = 382) CO2 (BEAKER) (test 28 meq/L 22-29 code = 355) BLOOD UREA NITROGEN 16 mg/dL 7-21 (BEAKER) (test code = 354) CREATININE (BEAKER) 0.94 mg/dL 0.57-1.25 (test code = 358) GLUCOSE RANDOM 115 mg/dL 70-105 H (BEAKER) (test code = 652) CALCIUM (BEAKER) 8.8 mg/dL 8.4-10.2 (test code = 697) EGFR (BEAKER) (test 80 mL/min/1.73 ESTIMA MARKY GFR IS code = 1092) sq m NOT ACCURATE CREATININE CLEARANCE IN PREDICTING GLOMERULAR FILTRATION RATE . ESTIMATED GFR I S NOT APPLICABLE FOR DIALYSIS PATIEN TS. CT, CHEST WITH IV CONTRAST- PE TEST [id number] 21:52:00Reason for exam:- >chest painWhat is the patient's sedation requirement?->No SedationFINAL REPORT CLINICAL HISTORY: Chest pain. FINDINGS: Multiple axial images of the chest were performed after the uncomplicated administration of IV contrast, utilizing a pulmonary embolism protocol. Post-processing coronal reformats were created and interpreted. This exam wasperformed according to our departmental dose-optimization program, which includes automated exposure control, adjustment of the mA and/or kV according to patient size and/or use of the iterative reconstruction technique. Study quality:Adequate. Comparison:06/07/2017 Pulmonary arteries: No pulmonary embolism. Lung parenchyma: Stable compressive atelectasis in the left lower lobe. Pleural effusion: Small left pleural effusion, slightly increased in [...] MDReport Verified Date/Time: 06/13/2017 21:52:51 Reading Location: [address] Reading Room B-TYPE NATRIURETIC FACTOR (BNP)2017-06-13 01:43:00 Test Item Value Reference Range Interpretation Comments B-TYPE NATRIURETIC PEPTIDE (BEAKER) 396 pg/mL 0-100 H (test code = 700) [id number] 01:34:00 Test Item Value Reference Range Interpretation Comments PHOSPHORUS (BEAKER) (test code = 2.8 mg/dL 2.3-4.7 604) [id number] 01:34:00 Test Item Value Reference Range Interpretation Comments MAGNESIUM (BEAKER) (test code = 2.0 mg/dL 1.6-2.6 627) BASIC METABOLIC [id number] 01:34:00 Test Item Value Reference Range Interpretation Comments SODIUM (BEAKER) 137 meq/L 136-145 (test code = 381) POTASSIUM (BEAKER) 4.1 meq/L 3.5-5.1 (test code = 379) CHLORIDE (BEAKER) 102 meq/L 98-107 (test code = 382) CO2 (BEAKER) (test 26 meq/L 22-29 code = 355) BLOOD UREA NITROGEN 16 mg/dL 7-21 (BEAKER) (test code = 354) CREATININE (BEAKER) 0.95 mg/dL 0.57-1.25 (test code = 358) GLUCOSE RANDOM 107 mg/dL 70-105 H (BEAKER) (test code = 652) CALCIUM (BEAKER) 9.0 mg/dL 8.4-10.2 (test code = 697) EGFR (BEAKER) (test 79 mL/min/1.73 ESTIMA MARKY GFR IS code = 1092) sq m NOT ACCURATE CREATININE CLEARANCE IN PREDICTING GLOMERULAR FILTRATION RATE . ESTIMATED GFR I S NOT APPLICABLE FOR DIALYSIS PATIEN TS. CBC W/PLT COUNT & AUTO [id number] 01:27:00 Test Item Value Reference Range Interpretation Comments WHITE BLOOD CELL COUNT (BEAKER) 9.3 K/ L 3.5-10.5 (test code = 775) RED BLOOD CELL COUNT (BEAKER) 3.18 M/ L 4.63-6.08 L (test code = 761) HEMOGLOBIN (BEAKER) (test code = 9.4 GM/DL 13.7-17.5 L 410) HEMATOCRIT (BEAKER) (test code = 29.6 % 40.1-51.0 L 411) MEAN CORPUSCULAR VOLUME (BEAKER) 93.1 fL 79.0-92.2 H (test code = 753) MEAN CORPUSCULAR HEMOGLOBIN 29.6 pg 25.7-32.2 (BEAKER) (test code = 751) MEAN CORPUSCULAR HEMOGLOBIN CONC 31.8 GM/DL 32.3-36.5 L (BEAKER) (test code = 752) RED CELL DISTRIBUTION WIDTH 14.0 % 11.6-14.4 (BEAKER) (test code = 412) PLATELET COUNT (BEAKER) (test 599 K/CU MM 150-450 H code = 756) MEAN PLATELET VOLUME (BEAKER) 9.6 fL 9.4-12.4 (test code = 754) NUCLEATED RED BLOOD CELLS 0 /100 WBC 0-0 (BEAKER) (test code = 413) NEUTROPHILS RELATIVE PERCENT 73 % (BEAKER) (test code = 429) LYMPHOCYTES RELATIVE PERCENT 13 % (BEAKER) (test code = 430) MONOCYTES RELATIVE PERCENT 10 % (BEAKER) (test code = 431) EOSINOPHILS RELATIVE PERCENT 3 % (BEAKER) (test code = 432) BASOPHILS RELATIVE PERCENT 1 % (BEAKER) (test code = 437) NEUTROPHILS ABSOLUTE COUNT 6.77 K/ L 1.78-5.38 H (BEAKER) (test code = 670) LYMPHOCYTES ABSOLUTE COUNT 1.23 K/ L 1.32-3.57 L (BEAKER) (test code = 414) MONOCYTES ABSOLUTE COUNT (BEAKER) 0.92 K/ L 0.30-0.82 H (test code = 415) EOSINOPHILS ABSOLUTE COUNT 0.27 K/ L 0.04-0.54 (BEAKER) (test code = 416) BASOPHILS ABSOLUTE COUNT (BEAKER) 0.06 K/ L 0.01-0.08 (test code = 417) IMMATURE GRANULOCYTES-RELATIVE 0 % 0-1 PERCENT (BEAKER) (test code = 2801) CALCIUM, [id number] 01:25:00 Test Item Value Reference Range Interpretation Comments CALCIUM IONIZED (BEAKER) (test 1.11 mmol/L 1.12-1.27 L code = 698) PH, BLOOD (BEAKER) (test code = 7.34 1810) Check serum Ionized Calcium level after 4 hours after IV Calcium replacement. BLOOD [id number] 23:00:00 Test Item Value Reference Range Interpretation Comments CULTURE (BEAKER) (test No growth in 5 days code = 1095) BLOOD [id number] 23:00:00 Test Item Value Reference Range Interpretation Comments CULTURE (BEAKER) (test No growth in 5 days code = 1095) OCCULT BLOOD, [id number] 15:30:00 Test Item Value Reference Range Interpretation Comments FECAL OCCULT BLOOD (BEAKER) (test Negative Negative code = 618) RAD, CHEST, 1 VIEW, NON [id number] 09:50:00Reason for exam:->respiratory failure s/p extubationShould this be performed at the bedside?->YesFINAL REPORT TECHNIQUE: Frontal chest radiograph dated 06/12/2017. CLINICAL HISTORY: Respiratory failure COMPARISON STUDY: Chest radiograph dated 06/12/2017 IMPRESSION:Stable, smallleft pleural effusion with compressive atelectasis. Stable prominent interstitial lung markings and p ulmonary vascular congestion. No pneumothorax. Cardiomediastinal silhouette is normal in size. Midline sternotomy wires are intact and well aligned. No fracture. Signed: Julian Olivaseport Verified Date/Time: 06/12/2017 09:50:04 Reading Location: [facility] Radiology Reading Room Electronicallysigned by: JULIAN OLIVAS on 06/12/2017 09:50 AMCALCIUM, [id number] 06:07:00 Test Item Value Reference Range Interpretation Comments CALCIUM IONIZED (BEAKER) (test 1.06 mmol/L 1.12-1.27 L code = 698) PH, BLOOD (BEAKER) (test code = 7.37 1810) Check serum Ionized Calcium level after 4 hours after IV Calcium replacement. [id number] 04:35:00 Test Item Value Reference Range Interpretation Comments PHOSPHORUS (BEAKER) (test code = 2.7 mg/dL 2.3-4.7 604) [id number] 04:35:00 Test Item Value Reference Range Interpretation Comments MAGNESIUM (BEAKER) (test code = 1.6 mg/dL 1.6-2.6 627) BASIC METABOLIC [id number] 04:35:00 Test Item Value Reference Range Interpretation Comments SODIUM (BEAKER) 138 meq/L 136-145 (test code = 381) POTASSIUM (BEAKER) 4.5 meq/L 3.5-5.1 (test code = 379) CHLORIDE (BEAKER) 104 meq/L 98-107 (test code = 382) CO2 (BEAKER) (test 26 meq/L 22-29 code = 355) BLOOD UREA NITROGEN 15 mg/dL 7-21 (BEAKER) (test code = 354) CREATININE (BEAKER) 0.82 mg/dL 0.57-1.25 (test code = 358) GLUCOSE RANDOM 104 mg/dL 70-105 (BEAKER) (test code = 652) CALCIUM (BEAKER) 8.4 mg/dL 8.4-10.2 (test code = 697) EGFR (BEAKER) (test 93 mL/min/1.73 ESTIMA MARKY GFR IS code = 1092) sq m NOT ACCURATE CREATININE CLEARANCE IN PREDICTING GLOMERULAR FILTRATION RATE . ESTIMATED GFR I S NOT APPLICABLE FOR DIALYSIS PATIEN TS. CBC W/PLT COUNT & AUTO [id number] 04:02:00 Test Item Value Reference Range Interpretation Comments WHITE BLOOD CELL COUNT (BEAKER) 8.1 K/ L 3.5-10.5 (test code = 775) RED BLOOD CELL COUNT (BEAKER) 2.75 M/ L 4.63-6.08 L (test code = 761) HEMOGLOBIN (BEAKER) (test code = 8.2 GM/DL 13.7-17.5 L 410) HEMATOCRIT (BEAKER) (test code = 25.7 % 40.1-51.0 L 411) MEAN CORPUSCULAR VOLUME (BEAKER) 93.5 fL 79.0-92.2 H (test code = 753) MEAN CORPUSCULAR HEMOGLOBIN 29.8 pg 25.7-32.2 (BEAKER) (test code = 751) MEAN CORPUSCULAR HEMOGLOBIN CONC 31.9 GM/DL 32.3-36.5 L (BEAKER) (test code = 752) RED CELL DISTRIBUTION WIDTH 13.8 % 11.6-14.4 (BEAKER) (test code = 412) PLATELET COUNT (BEAKER) (test 487 K/CU MM 150-450 H code = 756) MEAN PLATELET VOLUME (BEAKER) 9.4 fL 9.4-12.4 (test code = 754) NUCLEATED RED BLOOD CELLS 0 /100 WBC 0-0 (BEAKER) (test code = 413) NEUTROPHILS RELATIVE PERCENT 71 % (BEAKER) (test code = 429) LYMPHOCYTES RELATIVE PERCENT 15 % (BEAKER) (test code = 430) MONOCYTES RELATIVE PERCENT 10 % (BEAKER) (test code = 431) EOSINOPHILS RELATIVE PERCENT 3 % (BEAKER) (test code = 432) BASOPHILS RELATIVE PERCENT 1 % (BEAKER) (test code = 437) NEUTROPHILS ABSOLUTE COUNT 5.74 K/ L 1.78-5.38 H (BEAKER) (test code = 670) LYMPHOCYTES ABSOLUTE COUNT 1.19 K/ L 1.32-3.57 L (BEAKER) (test code = 414) MONOCYTES ABSOLUTE COUNT (BEAKER) 0.82 K/ L 0.30-0.82 (test code = 415) EOSINOPHILS ABSOLUTE COUNT 0.24 K/ L 0.04-0.54 (BEAKER) (test code = 416) BASOPHILS ABSOLUTE COUNT (BEAKER) 0.04 K/ L 0.01-0.08 (test code = 417) IMMATURE GRANULOCYTES-RELATIVE 1 % 0-1 PERCENT (BEAKER) (test code = 2801) POCT-GLUCOSE [id number] 16:31:00 Test Item Value Reference Range Interpretation Comments POC-GLUCOSE METER 120 mg/dL 70-110 H TESTED AT [facility] 6720 (BEAKER) (test code = CARI SHEIKH 1538) [address] [id number] 15:30:00 Test Item Value Reference Range Interpretation Comments MAGNESIUM (BEAKER) (test code = 1.9 mg/dL 1.6-2.6 627) POCT-GLUCOSE [id number] 12:40:00 Test Item Value Reference Range Interpretation Comments POC-GLUCOSE METER 104 mg/dL 70-110 TESTED AT [facility] 6720 (BEAKER) (test code = CARI Peres [facility] 1538) [address] RAD, CHEST, 1 VIEW, NON [id number] 10:08:00Reason for exam:->s/p LLL atelectasisShould this be performed at the bedside?->YesFINAL REPORT CLINICAL HISTORY: s/p LLL atelectasis TECHNIQUE: 1 view of the ch est. COMPARISON: 06/10/2017 IMPRESSION: The right central line has been removed. Bilateral airspace opacities appear decreased. Left lower lobe consolidation is again seen. A small left pleural effusion is decreased. The cardiomediastinal silhouette is magnified by technique with sternotomy wires. Signed: Lindsey Leija MDReport Verified Date/Time: 06/11/2017 10:08:53 Reading Location: [facility] [address] Radiology Reading Room BRONCHIAL CULTURE + GRAM [id number] 08:56:00 Test Item Value Reference Range Interpretation Comments CULTURE (BEAKER) <1+ Normal respiratory (test code = 1095) pavan present GRAM STAIN RESULT No WBCs (BEAKER) (test code = 1123) GRAM STAIN RESULT No organisms seen (BEAKER) (test code = 96458) POCT-GLUCOSE [id number] 08:06:00 Test Item Value Reference Range Interpretation Comments POC-GLUCOSE METER 109 mg/dL 70-110 TESTED AT [facility] 6720 (BEAKER) (test code = CARI Peres [facility] 1538) [address] CALCIUM, [id number] 07:18:00 Test Item Value Reference Range Interpretation Comments CALCIUM IONIZED (BEAKER) (test 1.11 mmol/L 1.12-1.27 L code = 698) PH, BLOOD (BEAKER) (test code = 7.33 1810) Check serum Ionized Calcium level after 4 hours after IV Calcium replacement. BASIC METABOLIC [id number] 05:47:00 Test Item Value Reference Range Interpretation Comments SODIUM (BEAKER) 140 meq/L 136-145 (test code = 381) POTASSIUM (BEAKER) 4.2 meq/L 3.5-5.1 (test code = 379) CHLORIDE (BEAKER) 107 meq/L 98-107 (test code = 382) CO2 (BEAKER) (test 27 meq/L 22-29 code = 355) BLOOD UREA NITROGEN 15 mg/dL 7-21 (BEAKER) (test code = 354) CREATININE (BEAKER) 0.83 mg/dL 0.57-1.25 (test code = 358) GLUCOSE RANDOM 98 mg/dL 70-105 (BEAKER) (test code = 652) CALCIUM (BEAKER) 8.5 mg/dL 8.4-10.2 (test code = 697) EGFR (BEAKER) (test 92 mL/min/1.73 ESTIMA MARKY GFR IS code = 1092) sq m NOT ACCURATE CREATININE CLEARANCE IN PREDICTING GLOMERULAR FILTRATION RATE . ESTIMATED GFR I S NOT APPLICABLE FOR DIALYSIS PATIEN TS. CBC (HEMOGRAM ONLY)2017-06-11 05:34:00 Test Item Value Reference Range Interpretation Comments WHITE BLOOD CELL COUNT (BEAKER) 8.4 K/ L 3.5-10.5 (test code = 775) RED BLOOD CELL COUNT (BEAKER) 2.84 M/ L 4.63-6.08 L (test code = 761) HEMOGLOBIN (BEAKER) (test code = 8.3 GM/DL 13.7-17.5 L 410) HEMATOCRIT (BEAKER) (test code = 26.6 % 40.1-51.0 L 411) MEAN CORPUSCULAR VOLUME (BEAKER) 93.7 fL 79.0-92.2 H (test code = 753) MEAN CORPUSCULAR HEMOGLOBIN 29.2 pg 25.7-32.2 (BEAKER) (test code = 751) MEAN CORPUSCULAR HEMOGLOBIN CONC 31.2 GM/DL 32.3-36.5 L (BEAKER) (test code = 752) RED CELL DISTRIBUTION WIDTH 13.8 % 11.6-14.4 (BEAKER) (test code = 412) PLATELET COUNT (BEAKER) (test 473 K/CU MM 150-450 H code = 756) MEAN PLATELET VOLUME (BEAKER) 10.0 fL 9.4-12.4 (test code = 754) NUCLEATED RED BLOOD CELLS 0 /100 WBC 0-0 (BEAKER) (test code = 413) CBC W/PLT COUNT & AUTO [id number] 05:34:00 Test Item Value Reference Range Interpretation Comments WHITE BLOOD CELL COUNT (BEAKER) 8.4 K/ L 3.5-10.5 (test code = 775) RED BLOOD CELL COUNT (BEAKER) 2.84 M/ L 4.63-6.08 L (test code = 761) HEMOGLOBIN (BEAKER) (test code = 8.3 GM/DL 13.7-17.5 L 410) HEMATOCRIT (BEAKER) (test code = 26.6 % 40.1-51.0 L 411) MEAN CORPUSCULAR VOLUME (BEAKER) 93.7 fL 79.0-92.2 H (test code = 753) MEAN CORPUSCULAR HEMOGLOBIN 29.2 pg 25.7-32.2 (BEAKER) (test code = 751) MEAN CORPUSCULAR HEMOGLOBIN CONC 31.2 GM/DL 32.3-36.5 L (BEAKER) (test code = 752) RED CELL DISTRIBUTION WIDTH 13.8 % 11.6-14.4 (BEAKER) (test code = 412) PLATELET COUNT (BEAKER) (test 473 K/CU MM 150-450 H code = 756) MEAN PLATELET VOLUME (BEAKER) 10.0 fL 9.4-12.4 (test code = 754) NUCLEATED RED BLOOD CELLS 0 /100 WBC 0-0 (BEAKER) (test code = 413) NEUTROPHILS RELATIVE PERCENT 74 % (BEAKER) (test code = 429) LYMPHOCYTES RELATIVE PERCENT 14 % (BEAKER) (test code = 430) MONOCYTES RELATIVE PERCENT 11 % (BEAKER) (test code = 431) EOSINOPHILS RELATIVE PERCENT 2 % (BEAKER) (test code = 432) BASOPHILS RELATIVE PERCENT 0 % (BEAKER) (test code = 437) NEUTROPHILS ABSOLUTE COUNT 6.14 K/ L 1.78-5.38 H (BEAKER) (test code = 670) LYMPHOCYTES ABSOLUTE COUNT 1.13 K/ L 1.32-3.57 L (BEAKER) (test code = 414) MONOCYTES ABSOLUTE COUNT (BEAKER) 0.89 K/ L 0.30-0.82 H (test code = 415) EOSINOPHILS ABSOLUTE COUNT 0.14 K/ L 0.04-0.54 (BEAKER) (test code = 416) BASOPHILS ABSOLUTE COUNT (BEAKER) 0.02 K/ L 0.01-0.08 (test code = 417) IMMATURE GRANULOCYTES-RELATIVE 1 % 0-1 PERCENT (BEAKER) (test code = 2801) POCT-GLUCOSE [id number] 22:34:00 Test Item Value Reference Range Interpretation Comments POC-GLUCOSE METER 122 mg/dL 70-110 H TESTED AT [facility] (BEAKER) (test code = [place] 1538) [address] CALCIUM, [id number] 20:54:00 Test Item Value Reference Range Interpretation Comments CALCIUM IONIZED (BEAKER) (test 1.14 mmol/L 1.12-1.27 code = 698) PH, BLOOD (BEAKER) (test code = 7.40 1810) [id number] 17:20:00 Test Item Value Reference Range Interpretation Comments POTASSIUM (BEAKER) (test code = 4.2 meq/L 3.5-5.1 379) [id number] 17:20:00 Test Item Value Reference Range Interpretation Comments MAGNESIUM (BEAKER) (test code = 2.1 mg/dL 1.6-2.6 627) SPUTUM CULTURE + GRAM [id number] 12:32:00 Test Item Value Reference Range Interpretation Comments CULTURE (BEAKER) 3+ Normal respiratory (test code = 1095) pavan present GRAM STAIN RESULT 2+ WBCs (BEAKER) (test code = 1123) GRAM STAIN RESULT 10-15 epithelial cells (BEAKER) (test code = 355139) GRAM STAIN RESULT <1+ gram negative rods (BEAKER) (test code = 514571) GRAM STAIN RESULT <1+ gram positive cocci (BEAKER) (test code = in pairs 621926) [id number] 10:52:00 Test Item Value Reference Range Interpretation Comments POTASSIUM (BEAKER) (test code = 3.7 meq/L 3.5-5.1 379) 8 hours after PO replacement [id number] 10:52:00 Test Item Value Reference Range Interpretation Comments MAGNESIUM (BEAKER) (test code = 2.5 mg/dL 1.6-2.6 627) 8 hours after PO replacement completedRAD, CHEST, 1 VIEW, NON [id number] 08:35:00Reason for exam:->s/p LLL atelectasisShould this be performed [...] MDReport Verified Date/Time: 06/10/2017 08:35:21 Reading Location: [facility] C013X Ortho Consult Reading Room [id number] 03:43:00 Test Item Value Reference Range Interpretation Comments PHOSPHORUS (BEAKER) (test code = 2.3 mg/dL 2.3-4.7 604) Check Serum Phosphorus level 4 hours after IV phosphorus replacement or 8 hours after PO replacementcompleted.[id number] 03:43:00 Test Item Value Reference Range Interpretation Comments MAGNESIUM (BEAKER) (test code = 1.9 mg/dL 1.6-2.6 627) Check Serum Phosphorus level 4 hours after IV phosphorus replacement or 8 hours after PO replacementcompleted.BASIC METABOLIC [id number] 03:43:00 Test Item Value Reference Range Interpretation Comments SODIUM (BEAKER) 137 meq/L 136-145 (test code = 381) POTASSIUM (BEAKER) 4.1 meq/L 3.5-5.1 (test code = 379) CHLORIDE (BEAKER) 106 meq/L 98-107 (test code = 382) CO2 (BEAKER) (test 23 meq/L 22-29 code = 355) BLOOD UREA NITROGEN 14 mg/dL 7-21 (BEAKER) (test code = 354) CREATININE (BEAKER) 0.78 mg/dL 0.57-1.25 (test code = 358) GLUCOSE RANDOM 105 mg/dL 70-105 (BEAKER) (test code = 652) CALCIUM (BEAKER) 8.8 mg/dL 8.4-10.2 (test code = 697) EGFR (BEAKER) (test 99 mL/min/1.73 ESTIMA MARKY GFR IS code = 1092) sq m NOT ACCURATE CREATININE CLEARANCE IN PREDICTING GLOMERULAR FILTRATION RATE . ESTIMATED GFR I S NOT APPLICABLE FOR DIALYSIS PATIEN TS. Check Serum Phosphorus level 4 hours after IV phosphorus replacement or 8 hours after PO replacementcompleted.CBC W/PLT COUNT & AUTO [id number] 03:17:00 Test Item Value Reference Range Interpretation Comments WHITE BLOOD CELL COUNT (BEAKER) 9.4 K/ L 3.5-10.5 (test code = 775) RED BLOOD CELL COUNT (BEAKER) 2.80 M/ L 4.63-6.08 L (test code = 761) HEMOGLOBIN (BEAKER) (test code = 8.3 GM/DL 13.7-17.5 L 410) HEMATOCRIT (BEAKER) (test code = 25.3 % 40.1-51.0 L 411) MEAN CORPUSCULAR VOLUME (BEAKER) 90.4 fL 79.0-92.2 (test code = 753) MEAN CORPUSCULAR HEMOGLOBIN 29.6 pg 25.7-32.2 (BEAKER) (test code = 751) MEAN CORPUSCULAR HEMOGLOBIN CONC 32.8 GM/DL 32.3-36.5 (BEAKER) (test code = 752) RED CELL DISTRIBUTION WIDTH 13.8 % 11.6-14.4 (BEAKER) (test code = 412) PLATELET COUNT (BEAKER) (test 445 K/CU MM 150-450 code = 756) MEAN PLATELET VOLUME (BEAKER) 10.1 fL 9.4-12.4 (test code = 754) NUCLEATED RED BLOOD CELLS 0 /100 WBC 0-0 (BEAKER) (test code = 413) NEUTROPHILS RELATIVE PERCENT 75 % (BEAKER) (test code = 429) LYMPHOCYTES RELATIVE PERCENT 13 % (BEAKER) (test code = 430) MONOCYTES RELATIVE PERCENT 9 % (BEAKER) (test code = 431) EOSINOPHILS RELATIVE PERCENT 1 % (BEAKER) (test code = 432) BASOPHILS RELATIVE PERCENT 0 % (BEAKER) (test code = 437) NEUTROPHILS ABSOLUTE COUNT 7.06 K/ L 1.78-5.38 H (BEAKER) (test code = 670) LYMPHOCYTES ABSOLUTE COUNT 1.26 K/ L 1.32-3.57 L (BEAKER) (test code = 414) MONOCYTES ABSOLUTE COUNT (BEAKER) 0.88 K/ L 0.30-0.82 H (test code = 415) EOSINOPHILS ABSOLUTE COUNT 0.10 K/ L 0.04-0.54 (BEAKER) (test code = 416) BASOPHILS ABSOLUTE COUNT (BEAKER) 0.03 K/ L 0.01-0.08 (test code = 417) IMMATURE GRANULOCYTES-RELATIVE 0 % 0-1 PERCENT (BEAKER) (test code = 2801) CALCIUM, [id number] 03:16:00 Test Item Value Reference Range Interpretation Comments CALCIUM IONIZED (BEAKER) (test 1.19 mmol/L 1.12-1.27 code = 698) PH, BLOOD (BEAKER) (test code = 7.47 1810) Check serum Ionized Calcium level after 4 hours after IV Calcium replacement. [id number] 22:28:00 Test Item Value Reference Range Interpretation Comments POTASSIUM (BEAKER) (test code = 3.6 meq/L 3.5-5.1 379) Check Serum Potassium level 2 hours after oral potassium replacement completed or 30 min after intravenous potassium replacement.[id number] 22:28:00 Test Item Value Reference Range Interpretation Comments MAGNESIUM (BEAKER) (test code = 1.6 mg/dL 1.6-2.6 627) Check Serum Potassium level 2 hours after oral potassium replacement completed or 30 min after intravenous potassium replacement.POCT-GLUCOSE [id number] 22:19:00 Test Item Value Reference Range Interpretation Comments POC-GLUCOSE METER 117 mg/dL 70-110 H TESTED AT [facility] (BEAKER) (test code = [place] 1538) [address] CALCIUM, [id number] 21:42:00 Test Item Value Reference Range Interpretation Comments CALCIUM IONIZED (BEAKER) (test 1.10 mmol/L 1.12-1.27 L code = 698) PH, BLOOD (BEAKER) (test code = 7.48 1810) Check serum Ionized Calcium level after 4 hours after IV Calcium replacement. POCT-GLUCOSE [id number] 17:37:00 Test Item Value Reference Range Interpretation Comments POC-GLUCOSE METER 102 mg/dL 70-110 TESTED AT [facility] ([facility]) (test code = [place] 1538) [address] RAD, CHEST, 1 VIEW, NON [id number] 17:09:00Reason for exam:->chest pain, and SOB.FINAL REPORT [...] layering out. Signed: Sydni Shelby MDReport Verified Date/Time: 06/09/2017 17:09:52 Reading Location: [address] Ortho Consult Reading Room POTASSIUM 2017-06-09 16:38:00 Test Item Value Reference Range Interpretation Comments POTASSIUM (BEAKER) (test code = 3.8 meq/L 3.5-5.1 379) [id number] 16:38:00 Test Item Value Reference Range Interpretation Comments MAGNESIUM (BEAKER) (test code = 1.9 mg/dL 1.6-2.6 627) CALCIUM, [id number] 16:07:00 Test Item Value Reference Range Interpretation Comments CALCIUM IONIZED (BEAKER) (test 1.03 mmol/L 1.12-1.27 L code = 698) PH, BLOOD (BEAKER) (test code = 7.47 1810) POCT-GLUCOSE [id number] 15:09:00 Test Item Value Reference Range Interpretation Comments POC-GLUCOSE METER 85 mg/dL 70-110 TESTED AT [facility] [address] (BEAKER) (test code = [place] [address] 1538) HEMOGLOBIN AND [id number] 14:02:00 Test Item Value Reference Range Interpretation Comments HEMOGLOBIN (BEAKER) (test code = 8.2 GM/DL 13.7-17.5 L 410) HEMATOCRIT (BEAKER) (test code = 25.0 % 40.1-51.0 L 411) RAD, CHEST, 1 VIEW, NON [id number] 11:54:00Reason for exam:->sobShould this be performed at [...] size. Sternotomy wires are present. Signed: Sydni Shelbyeport Verified Date/Time: 06/09/2017 11:54:36 Reading Location: [address] Ortho Consult Reading Room URINE [id number] 11:20:00 Test Item Value Reference Range Interpretation Comments [facility] (test code = 1095) No growth VANCOMYCIN LEVEL, [id number] 08:58:00 Test Item Value Reference Range Interpretation Comments VANCOMYCIN TROUGH ([facility]) (test 10.4 ug/mL 10.0-20.0 code = 522) Please draw trough 30 minutes prior to AM vancomycin dose on 06/09/17.POCT-GLUCOSE [id number] 07:18:00 Test Item Value Reference Range Interpretation Comments POC-GLUCOSE METER 123 mg/dL 70-110 H TESTED AT [facility] [address] ([facility]) (test code = [place] 1538) [address] CBC W/PLT COUNT & AUTO [id number] 05:50:00 Test Item Value Reference Range Interpretation Comments WHITE BLOOD CELL COUNT (BEAKER) 10.0 K/ L 3.5-10.5 (test code = 775) RED BLOOD CELL COUNT (BEAKER) 2.35 M/ L 4.63-6.08 L (test code = 761) HEMOGLOBIN (BEAKER) (test code = 6.8 GM/DL 13.7-17.5 L 410) HEMATOCRIT (BEAKER) (test code = 21.6 % 40.1-51.0 L 411) MEAN CORPUSCULAR VOLUME (BEAKER) 91.9 fL 79.0-92.2 (test code = 753) MEAN CORPUSCULAR HEMOGLOBIN 28.9 pg 25.7-32.2 (BEAKER) (test code = 751) MEAN CORPUSCULAR HEMOGLOBIN CONC 31.5 GM/DL 32.3-36.5 L (BEAKER) (test code = 752) RED CELL DISTRIBUTION WIDTH 14.1 % 11.6-14.4 (BEAKER) (test code = 412) PLATELET COUNT (BEAKER) (test 370 K/CU MM 150-450 code = 756) MEAN PLATELET VOLUME (BEAKER) 10.4 fL 9.4-12.4 (test code = 754) NUCLEATED RED BLOOD CELLS 0 /100 WBC 0-0 (BEAKER) (test code = 413) NEUTROPHILS RELATIVE PERCENT 79 % (BEAKER) (test code = 429) LYMPHOCYTES RELATIVE PERCENT 10 % (BEAKER) (test code = 430) MONOCYTES RELATIVE PERCENT 10 % (BEAKER) (test code = 431) EOSINOPHILS RELATIVE PERCENT 1 % (BEAKER) (test code = 432) BASOPHILS RELATIVE PERCENT 0 % (BEAKER) (test code = 437) NEUTROPHILS ABSOLUTE COUNT 7.85 K/ L 1.78-5.38 H (BEAKER) (test code = 670) LYMPHOCYTES ABSOLUTE COUNT 0.96 K/ L 1.32-3.57 L (BEAKER) (test code = 414) MONOCYTES ABSOLUTE COUNT (BEAKER) 0.95 K/ L 0.30-0.82 H (test code = 415) EOSINOPHILS ABSOLUTE COUNT 0.13 K/ L 0.04-0.54 (BEAKER) (test code = 416) BASOPHILS ABSOLUTE COUNT (BEAKER) 0.02 K/ L 0.01-0.08 (test code = 417) IMMATURE GRANULOCYTES-RELATIVE 1 % 0-1 PERCENT (BEAKER) (test code = 2801) [id number] 05:12:00 Test Item Value Reference Range Interpretation Comments PHOSPHORUS (BEAKER) (test code = 2.9 mg/dL 2.3-4.7 604) [id number] 05:12:00 Test Item Value Reference Range Interpretation Comments MAGNESIUM (BEAKER) (test code = 2.3 mg/dL 1.6-2.6 627) BASIC METABOLIC [id number] 05:12:00 Test Item Value Reference Range Interpretation Comments SODIUM (BEAKER) 138 meq/L 136-145 (test code = 381) POTASSIUM (BEAKER) 3.7 meq/L 3.5-5.1 (test code = 379) CHLORIDE (BEAKER) 105 meq/L 98-107 (test code = 382) CO2 (BEAKER) (test 27 meq/L 22-29 code = 355) BLOOD UREA NITROGEN 18 mg/dL 7-21 (BEAKER) (test code = 354) CREATININE (BEAKER) 0.81 mg/dL 0.57-1.25 (test code = 358) GLUCOSE RANDOM 111 mg/dL 70-105 H (BEAKER) (test code = 652) CALCIUM (BEAKER) 8.2 mg/dL 8.4-10.2 L (test code = 697) EGFR (BEAKER) (test 94 mL/min/1.73 ESTIMA MARKY GFR IS code = 1092) sq m NOT ACCURATE CREATININE CLEARANCE IN PREDICTING GLOMERULAR FILTRATION RATE . ESTIMATED GFR I S NOT APPLICABLE FOR DIALYSIS PATIEN TS. BASIC METABOLIC [id number] 01:36:00 Test Item Value Reference Range Interpretation Comments SODIUM (BEAKER) 137 meq/L 136-145 (test code = 381) POTASSIUM (BEAKER) 3.9 meq/L 3.5-5.1 (test code = 379) CHLORIDE (BEAKER) 103 meq/L 98-107 (test code = 382) CO2 (BEAKER) (test 25 meq/L 22-29 code = 355) BLOOD UREA NITROGEN 17 mg/dL 7-21 (BEAKER) (test code = 354) CREATININE (BEAKER) 0.78 mg/dL 0.57-1.25 (test code = 358) GLUCOSE RANDOM 116 mg/dL 70-105 H (BEAKER) (test code = 652) CALCIUM (BEAKER) 8.0 mg/dL 8.4-10.2 L (test code = 697) EGFR (BEAKER) (test 99 mL/min/1.73 ESTIMA MARKY GFR IS code = 1092) sq m NOT ACCURATE CREATININE CLEARANCE IN PREDICTING GLOMERULAR FILTRATION RATE . ESTIMATED GFR I S NOT APPLICABLE FOR DIALYSIS PATIEN TS. [id number] 01:35:00 Test Item Value Reference Range Interpretation Comments PHOSPHORUS (BEAKER) (test code = 1.7 mg/dL 2.3-4.7 L 604) [id number] 01:35:00 Test Item Value Reference Range Interpretation Comments MAGNESIUM (BEAKER) (test code = 2.1 mg/dL 1.6-2.6 627) CALCIUM, [id number] 01:05:00 Test Item Value Reference Range Interpretation Comments CALCIUM IONIZED (BEAKER) (test 1.00 mmol/L 1.12-1.27 L code = 698) PH, BLOOD (BEAKER) (test code = 7.46 1810) POCT-GLUCOSE [id number] 23:17:00 Test Item Value Reference Range Interpretation Comments POC-GLUCOSE METER 118 mg/dL 70-110 H TESTED AT [facility] ([facility]) (test code = [facility] 1538) [address] POCT-GLUCOSE [id number] 22:16:00 Test Item Value Reference Range Interpretation Comments POC-GLUCOSE METER 152 mg/dL 70-110 H TESTED AT [facility] [address] ([facility]) (test code = [facility] 1538) [address] BLOOD GAS, [id number] 09:31:00 Test Item Value Reference Range Interpretation Comments PH ARTERIAL (BEAKER) (test code = 7.44 7.35-7.45 383) PCO2 ARTERIAL (BEAKER) (test code 40 mmHg 35-45 = 384) PO2 ARTERIAL (BEAKER) (test code = 101 mmHg 80-90 H 385) O2 SATURATION ARTERIAL (BEAKER) 97.8 % 96.0-97.0 H (test code = 386) HCO3 ARTERIAL (BEAKER) (test code 27 mmol/L 21-29 = 388) BASE EXCESS ARTERIAL (BEAKER) 2.3 mmol/L -2.0-3.0 (test code = 387) PATIENT TEMPERATURE (BEAKER) (test 37.1 C code = 1818) FIO2 (BEAKER) (test code = 1819) 40.0 % [id number] 08:38:00 Test Item Value Reference Range Interpretation Comments MAGNESIUM (BEAKER) (test code = 2.6 mg/dL 1.6-2.6 627) POTASSIUM-STAT [id number] 08:19:00 Test Item Value Reference Range Interpretation Comments POTASSIUM (BEAKER) (test code = 3.4 meq/L 3.6-5.5 L 379) GLUCOSE-STAT [id number] 08:19:00 Test Item Value Reference Range Interpretation Comments GLUCOSE RANDOM (BEAKER) (test code 130 mg/dL 70-110 H = 652) HGB/HCT (H&H) - STAT [id number] 08:19:00 Test Item Value Reference Range Interpretation Comments HEMOGLOBIN (BEAKER) (test code = 9.4 g/dL 13.0-16.8 L 410) HEMATOCRIT (BEAKER) (test code = 28.0 % 40.0-50.0 L 411) SODIUM NA-STAT [id number] 08:15:00 Test Item Value Reference Range Interpretation Comments SODIUM (BEAKER) (test code = 381) 135 meq/L 135-148 CBC W/PLT COUNT & AUTO [id number] 06:18:00 Test Item Value Reference Range Interpretation Comments WHITE BLOOD CELL COUNT (BEAKER) 11.2 K/ L 3.5-10.5 H (test code = 775) RED BLOOD CELL COUNT (BEAKER) 2.69 M/ L 4.63-6.08 L (test code = 761) HEMOGLOBIN (BEAKER) (test code = 7.8 GM/DL 13.7-17.5 L 410) HEMATOCRIT (BEAKER) (test code = 24.4 % 40.1-51.0 L 411) MEAN CORPUSCULAR VOLUME (BEAKER) 90.7 fL 79.0-92.2 (test code = 753) MEAN CORPUSCULAR HEMOGLOBIN 29.0 pg 25.7-32.2 (BEAKER) (test code = 751) MEAN CORPUSCULAR HEMOGLOBIN CONC 32.0 GM/DL 32.3-36.5 L (BEAKER) (test code = 752) RED CELL DISTRIBUTION WIDTH 14.3 % 11.6-14.4 (BEAKER) (test code = 412) PLATELET COUNT (BEAKER) (test 313 K/CU MM 150-450 code = 756) MEAN PLATELET VOLUME (BEAKER) 11.0 fL 9.4-12.4 (test code = 754) NUCLEATED RED BLOOD CELLS 0 /100 WBC 0-0 (BEAKER) (test code = 413) NEUTROPHILS RELATIVE PERCENT 79 % (BEAKER) (test code = 429) LYMPHOCYTES RELATIVE PERCENT 10 % (BEAKER) (test code = 430) MONOCYTES RELATIVE PERCENT 11 % (BEAKER) (test code = 431) EOSINOPHILS RELATIVE PERCENT 0 % (BEAKER) (test code = 432) BASOPHILS RELATIVE PERCENT 0 % (BEAKER) (test code = 437) NEUTROPHILS ABSOLUTE COUNT 8.77 K/ L 1.78-5.38 H (BEAKER) (test code = 670) LYMPHOCYTES ABSOLUTE COUNT 1.09 K/ L 1.32-3.57 L (BEAKER) (test code = 414) MONOCYTES ABSOLUTE COUNT (BEAKER) 1.19 K/ L 0.30-0.82 H (test code = 415) EOSINOPHILS ABSOLUTE COUNT 0.03 K/ L 0.04-0.54 L (BEAKER) (test code = 416) BASOPHILS ABSOLUTE COUNT (BEAKER) 0.03 K/ L 0.01-0.08 (test code = 417) IMMATURE GRANULOCYTES-RELATIVE 1 % 0-1 PERCENT (BEAKER) (test code = 2801) [id number] 05:19:00 Test Item Value Reference Range Interpretation Comments PHOSPHORUS (BEAKER) (test code = 2.2 mg/dL 2.3-4.7 L 604) [id number] 05:19:00 Test Item Value Reference Range Interpretation Comments MAGNESIUM (BEAKER) (test code = 3.2 mg/dL 1.6-2.6 H 627) BASIC METABOLIC [id number] 05:19:00 Test Item Value Reference Range Interpretation Comments SODIUM (BEAKER) 135 meq/L 136-145 L (test code = 381) POTASSIUM (BEAKER) 3.8 meq/L 3.5-5.1 (test code = 379) CHLORIDE (BEAKER) 103 meq/L 98-107 (test code = 382) CO2 (BEAKER) (test 25 meq/L 22-29 code = 355) BLOOD UREA NITROGEN 17 mg/dL 7-21 (BEAKER) (test code = 354) CREATININE (BEAKER) 0.91 mg/dL 0.57-1.25 (test code = 358) GLUCOSE RANDOM 122 mg/dL 70-105 H (BEAKER) (test code = 652) CALCIUM (BEAKER) 8.2 mg/dL 8.4-10.2 L (test code = 697) EGFR (BEAKER) (test 83 mL/min/1.73 ESTIMA MARKY GFR IS code = 1092) sq m NOT ACCURATE CREATININE CLEARANCE IN PREDICTING GLOMERULAR FILTRATION RATE . ESTIMATED GFR I S NOT APPLICABLE FOR DIALYSIS PATIEN TS. [id number] 04:52:00 Test Item Value Reference Range Interpretation Comments PROTIME (BEAKER) (test code = 14.1 seconds 11.7-14.7 759) INR (BEAKER) (test code = 370) 1.1 <=5.9 PARTIAL THROMBOPLASTIN TIME 69.1 seconds 22.5-36.0 H (BEAKER) (test code = 760) RECOMMENDED COUMADIN/WARFARIN INR THERAPY RANGESSTANDARD DOSE: 2.0 - 3.0 Includes: PROPHYLAXIS forvenous thrombosis, systemic embolization; TREATMENT for venous thrombosis and/or pulmonary embolus.HIGH RISK: Target INR is 2.5-3.5 for patients with mechanical heart valves.BLOOD GAS, [id number] 04:49:00 Test Item Value Reference Range Interpretation Comments PH ARTERIAL (BEAKER) (test code = 7.44 7.35-7.45 383) PCO2 ARTERIAL (BEAKER) (test code 42 mm Hg 35-45 = 384) PO2 ARTERIAL (BEAKER) (test code = 95 mm Hg 80-90 H 385) O2 SATURATION ARTERIAL (BEAKER) 97.4 % 96.0-97.0 H (test code = 386) HCO3 ARTERIAL (BEAKER) (test code 28 mmol/L 21-29 = 388) BASE EXCESS ARTERIAL (BEAKER) 3.2 mmol/L -2.0-3.0 H (test code = 387) PATIENT TEMPERATURE (BEAKER) (test 37.2 code = 1818) FIO2 (BEAKER) (test code = 1819) 40 CALCIUM, [id number] 04:47:00 Test Item Value Reference Range Interpretation Comments CALCIUM IONIZED (BEAKER) (test 1.09 mmol/L 1.12-1.27 L code = 698) PH, BLOOD (BEAKER) (test code = 7.44 1810) OXYGEN SATURATION, [id number] 04:42:00 Test Item Value Reference Range Interpretation Comments O2 SATURATION (MEASURED) (BEAKER) 60.6 % (test code = 1455) RAD, CHEST, 1 VIEW, NON [id number] 04:10:00Reason for exam:->S/p CT surgeryShould this be [...] Vargas MDReport Verified Date/Time: 06/08/2017 04:10:59 Reading Location:[address] Reading Room [id number] 23:51:00 Test Item Value Reference Range Interpretation Comments MAGNESIUM (BEAKER) (test code = 2.0 mg/dL 1.6-2.6 627) BLOOD GAS, [id number] 23:39:00 Test Item Value Reference Range Interpretation Comments PH ARTERIAL (BEAKER) (test code = 7.41 7.35-7.45 383) PCO2 ARTERIAL (BEAKER) (test code 45 mmHg 35-45 = 384) PO2 ARTERIAL (BEAKER) (test code = 138 mmHg 80-90 H 385) O2 SATURATION ARTERIAL (BEAKER) 98.7 % 96.0-97.0 H (test code = 386) HCO3 ARTERIAL (BEAKER) (test code 27 mmol/L 21-29 = 388) BASE EXCESS ARTERIAL (BEAKER) 2.4 mmol/L -2.0-3.0 (test code = 387) PATIENT TEMPERATURE (BEAKER) (test 38.1 C code = 1818) FIO2 (BEAKER) (test code = 1819) 80.0 % POTASSIUM-STAT [id number] 23:37:00 Test Item Value Reference Range Interpretation Comments POTASSIUM (BEAKER) (test code = 3.5 meq/L 3.6-5.5 L 379) RAD, CHEST, 1 VIEW, NON [id number] 19:36:00Reason for exam:->sp bronchoscopy and ETT placementShould this be performed at the bedside?->Yes FINAL REPORT AP view of the chest dated [...] the lungs are clear. Signed: Santos Mann MDReport Verified Date/Time: 06/07/2017 19:36:32 Reading Location: [address] Consult Reading Room [id number] 18:10:00 Test Item Value Reference Range Interpretation Comments POTASSIUM (BEAKER) (test code = 4.3 meq/L 3.5-5.1 379) [id number] 18:10:00 Test Item Value Reference Range Interpretation Comments MAGNESIUM (BEAKER) (test code = 2.0 mg/dL 1.6-2.6 627) [id number] 17:57:00 Test Item Value Reference Range Interpretation Comments PARTIAL THROMBOPLASTIN TIME 36.4 seconds 22.5-36.0 H (BEAKER) (test code = 760) Prior to initiating heparinGLUCOSE-STAT [id number] 17:27:00 Test Item Value Reference Range Interpretation Comments GLUCOSE RANDOM (BEAKER) (test code 117 mg/dL 70-110 H = 652) BLOOD GAS, [id number] 17:27:00 Test Item Value Reference Range Interpretation Comments PH ARTERIAL (BEAKER) (test code = 7.44 7.35-7.45 383) PCO2 ARTERIAL (BEAKER) (test code 43 mmHg 35-45 = 384) PO2 ARTERIAL (BEAKER) (test code = 125 mmHg 80-90 H 385) O2 SATURATION ARTERIAL (BEAKER) 98.4 % 96.0-97.0 H (test code = 386) HCO3 ARTERIAL (BEAKER) (test code 28 mmol/L 21-29 = 388) BASE EXCESS ARTERIAL (BEAKER) 4.4 mmol/L -2.0-3.0 H (test code = 387) PATIENT TEMPERATURE (BEAKER) (test 38.6 C code = 1818) FIO2 (BEAKER) (test code = 1819) 100.0 % CT, CHEST WITH IV CONTRAST- PE TEST [id number] 16:35:00FINAL REPORT INDICATION: 67-year-old male with hypoxemia status post coronaryartery bypass surgery two days ago. Evaluate for pulmonary neoplasm. COMPARISON:Chest radiograph June 07, 2017Chest CT May 30, 2017 TECHNIQUE: Chest CT exam WITH intravenous contrast, PE [...] no mediastinal hematoma. There is a small low-density layering left pleural effusion associated with collapse [...] MDReport Verified Date/Time: 06/07/2017 16:35:59 Reading Location: [facility] B1 C013Y CT Body Reading Room GLOBIN AND [id number] 14:16:00 Test Item Value Reference Range Interpretation Comments HEMOGLOBIN (BEAKER) (test code = 9.6 GM/DL 13.7-17.5 L 410) HEMATOCRIT (BEAKER) (test code = 28.0 % 40.1-51.0 L 411) [id number] 14:16:00 Test Item Value Reference Range Interpretation Comments POTASSIUM (BEAKER) (test code = 3.7 meq/L 3.5-5.1 379) CALCIUM, [id number] 14:15:00 Test Item Value Reference Range Interpretation Comments CALCIUM IONIZED (BEAKER) (test 1.06 mmol/L 1.12-1.27 L code = 698) PH, BLOOD (BEAKER) (test code = 7.46 1810) BLOOD GAS, [id number] 14:15:00 Test Item Value Reference Range Interpretation Comments PH ARTERIAL (BEAKER) (test code = 7.47 7.35-7.45 H 383) PCO2 ARTERIAL (BEAKER) (test code 37 mmHg 35-45 = 384) PO2 ARTERIAL (BEAKER) (test code = 53 mmHg 80-90 L 385) O2 SATURATION ARTERIAL (BEAKER) 90.8 % 96.0-97.0 L (test code = 386) HCO3 ARTERIAL (BEAKER) (test code 27 mmol/L 21-29 = 388) BASE EXCESS ARTERIAL (BEAKER) 2.9 mmol/L -2.0-3.0 (test code = 387) PATIENT TEMPERATURE (BEAKER) (test 36.3 C code = 1818) FIO2 (BEAKER) (test code = 1819) 100.0 % RAD, CHEST, 1 VIEW, NON [id number] 13:04:00Reason for exam:- >hypoxiaShould this be performed at the bedside?->YesFINAL REPORT Chest one view compared to June 07, 2017 Discussion: Interstiti al and patchy bilateral pulmonary opacities are overall similar. No gross effusion or pneumothorax. Signed: Malorie Pacheco Verified Date/Time: 06/07/2017 13:04:22 Reading Location: [facility] [address] Radiology [facility] 2017-06-07 05:54:00 Test Item Value Reference Range Interpretation Comments PHOSPHORUS (BEAKER) (test code = 2.0 mg/dL 2.3-4.7 L 604) [id number] 05:54:00 Test Item Value Reference Range Interpretation Comments MAGNESIUM (BEAKER) (test code = 2.1 mg/dL 1.6-2.6 627) BASIC METABOLIC [id number] 05:54:00 Test Item Value Reference Range Interpretation Comments SODIUM (BEAKER) 136 meq/L 136-145 (test code = 381) POTASSIUM (BEAKER) 4.3 meq/L 3.5-5.1 (test code = 379) CHLORIDE (BEAKER) 103 meq/L 98-107 (test code = 382) CO2 (BEAKER) (test 24 meq/L 22-29 code = 355) BLOOD UREA NITROGEN 13 mg/dL 7-21 (BEAKER) (test code = 354) CREATININE (BEAKER) 0.81 mg/dL 0.57-1.25 (test code = 358) GLUCOSE RANDOM 115 mg/dL 70-105 H (BEAKER) (test code = 652) CALCIUM (BEAKER) 8.5 mg/dL 8.4-10.2 (test code = 697) EGFR (BEAKER) (test 94 mL/min/1.73 ESTIMA MARKY GFR IS code = 1092) sq m NOT ACCURATE CREATININE CLEARANCE IN PREDICTING GLOMERULAR FILTRATION RATE . ESTIMATED GFR I S NOT APPLICABLE FOR DIALYSIS PATIEN TS. CBC W/PLT COUNT & AUTO [id number] 05:44:00 Test Item Value Reference Range Interpretation Comments WHITE BLOOD CELL COUNT (BEAKER) 11.9 K/ L 3.5-10.5 H (test code = 775) RED BLOOD CELL COUNT (BEAKER) 2.55 M/ L 4.63-6.08 L (test code = 761) HEMOGLOBIN (BEAKER) (test code = 7.6 GM/DL 13.7-17.5 L 410) HEMATOCRIT (BEAKER) (test code = 24.0 % 40.1-51.0 L 411) MEAN CORPUSCULAR VOLUME (BEAKER) 94.1 fL 79.0-92.2 H (test code = 753) MEAN CORPUSCULAR HEMOGLOBIN 29.8 pg 25.7-32.2 (BEAKER) (test code = 751) MEAN CORPUSCULAR HEMOGLOBIN CONC 31.7 GM/DL 32.3-36.5 L (BEAKER) (test code = 752) RED CELL DISTRIBUTION WIDTH 13.4 % 11.6-14.4 (BEAKER) (test code = 412) PLATELET COUNT (BEAKER) (test 281 K/CU MM 150-450 code = 756) MEAN PLATELET VOLUME (BEAKER) 11.2 fL 9.4-12.4 (test code = 754) NUCLEATED RED BLOOD CELLS 0 /100 WBC 0-0 (BEAKER) (test code = 413) NEUTROPHILS RELATIVE PERCENT 75 % (BEAKER) (test code = 429) LYMPHOCYTES RELATIVE PERCENT 13 % (BEAKER) (test code = 430) MONOCYTES RELATIVE PERCENT 11 % (BEAKER) (test code = 431) EOSINOPHILS RELATIVE PERCENT 0 % (BEAKER) (test code = 432) BASOPHILS RELATIVE PERCENT 0 % (BEAKER) (test code = 437) NEUTROPHILS ABSOLUTE COUNT 8.91 K/ L 1.78-5.38 H (BEAKER) (test code = 670) LYMPHOCYTES ABSOLUTE COUNT 1.56 K/ L 1.32-3.57 (BEAKER) (test code = 414) MONOCYTES ABSOLUTE COUNT (BEAKER) 1.36 K/ L 0.30-0.82 H (test code = 415) EOSINOPHILS ABSOLUTE COUNT 0.02 K/ L 0.04-0.54 L (BEAKER) (test code = 416) BASOPHILS ABSOLUTE COUNT (BEAKER) 0.02 K/ L 0.01-0.08 (test code = 417) IMMATURE GRANULOCYTES-RELATIVE 0 % 0-1 PERCENT (BEAKER) (test code = 2801) CALCIUM, [id number] 05:19:00 Test Item Value Reference Range Interpretation Comments CALCIUM IONIZED (BEAKER) (test 1.12 mmol/L 1.12-1.27 code = 698) PH, BLOOD (BEAKER) (test code = 7.40 1810) OXYGEN SATURATION, [id number] 05:18:00 Test Item Value Reference Range Interpretation Comments O2 SATURATION (MEASURED) (BEAKER) 73.4 % (test code = 1455) RAD, CHEST, 1 VIEW, NON [id number] 04:54:00Reason for exam:->S/p CT surgeryShould this be performed at the bedside?->YesFINAL REPORT CLINICAL INDICATION: Postop Comparison: 06/06/2017 The cardiomedia stinal contours are stable after mediastinal drain removal. The lung volumes remain low. Central pulmonary vascular prominence and bilateral parenchymal and pleural opacities are similar to previous. There is no pneumothorax after left chest tube removal. A right IJ CVC remains in place. Signed: Alvino Vargas MDReport Verified Date/Time: 06/07/2017 04:54:26 Reading Location: [address] Reading Room POCT-GLUCOSE [id number] 01:10:00 Test Item Value Reference Range Interpretation Comments POC-GLUCOSE METER 124 mg/dL 70-110 H TESTED AT [place] [address] ([facility]) (test code = [facility] 1538) [address] POCT-GLUCOSE [id number] 16:24:00 Test Item Value Reference Range Interpretation Comments POC-GLUCOSE METER 126 mg/dL 70-110 H TESTED AT [place] [address] ([facility]) (test code = [facility] 1538) [address] POCT-GLUCOSE [id number] 12:38:00 Test Item Value Reference Range Interpretation Comments POC-GLUCOSE METER 121 mg/dL 70-110 H TESTED AT [place] [address] ([facility]) (test code = [facility] 1538) [address] BETA-2 GLYCOPROTEIN [id number] 08:54:00 Test Item Value Reference Range Interpretation Comments B2 GLYCOPROTEIN Refer to individual AUTOVERIFICATION COMPONENT B2-Glycoprotein (test code = 2557) IgG, IgM and IgA results. PLATELET AGGREGATION: FUNCTION [id number] 08:46:00 Test Item Value Reference Range Interpretation Comments WEAK ADP 77 % 60-91 RESULT([facility]) (test code = 2135) PLATELET FUNCTION 60-100% indicates SCREEN INTERP ([facility]) normal platelet (test code = 2173) function [id number] Umm Díaz MD ([facility]) (test code = (electronic signature) 6430) PLATELET COUNT AGG 361 K/CU MM 150-450 ([facility]) (test code = 2656) for patients on clopidogrel in past two weeksRAD, CHEST, 1 VIEW, NON DEPT 2017-06-06 05:37:00Reason for exam:->S/p CT surgeryShould this be [...] left effusion. Trace righteffusion. No pneumothorax.Heart and mediastinum: Stable contours. Stable surgical changes.Additionalfindings: None. Signed: JR Cervantes Robert MDReport Verified Date/Time: 06/06/2017 05:37:48 Reading Location: [facility] C013Y CT Body Reading Room POCT-GLUCOSE METER 2017-06-06 05:25:00 Test Item Value Reference Range Interpretation Comments POC-GLUCOSE METER 141 mg/dL 70-110 H TESTED AT [facility] 6720 ([facility]) (test code = [place] [address]) [address] BASIC METABOLIC [id number] 05:15:00 Test Item Value Reference Range Interpretation Comments SODIUM (BEAKER) 134 meq/L 136-145 L (test code = 381) POTASSIUM (BEAKER) 4.7 meq/L 3.5-5.1 (test code = 379) CHLORIDE (BEAKER) 105 meq/L 98-107 (test code = 382) CO2 (BEAKER) (test 21 meq/L 22-29 L code = 355) BLOOD UREA NITROGEN 11 mg/dL 7-21 (BEAKER) (test code = 354) CREATININE (BEAKER) 0.85 mg/dL 0.57-1.25 (test code = 358) GLUCOSE RANDOM 125 mg/dL 70-105 H (BEAKER) (test code = 652) CALCIUM (BEAKER) 7.9 mg/dL 8.4-10.2 L (test code = 697) EGFR (BEAKER) (test 89 mL/min/1.73 ESTIMA MARKY GFR IS code = 1092) sq m NOT ACCURATE CREATININE CLEARANCE IN PREDICTING GLOMERULAR FILTRATION RATE . ESTIMATED GFR I S NOT APPLICABLE FOR DIALYSIS PATIEN TS. [id number] 05:14:00 Test Item Value Reference Range Interpretation Comments PHOSPHORUS (BEAKER) (test code = 3.0 mg/dL 2.3-4.7 604) [id number] 05:14:00 Test Item Value Reference Range Interpretation Comments MAGNESIUM (BEAKER) (test code = 2.2 mg/dL 1.6-2.6 627) OXYGEN SATURATION, [id number] 04:40:00 Test Item Value Reference Range Interpretation Comments O2 SATURATION (MEASURED) (BEAKER) 63.4 % (test code = 1455) LACTIC ACID, ARTERIAL, WHOLE [id number] 04:39:00 Test Item Value Reference Range Interpretation Comments LACTATE BLOOD ARTERIAL (2) 0.6 mmol/L 0.5-2.2 (BEAKER) (test code = 2874) Effective 10/06/2015: Units/Reference Range ChangeNew: 0.5-2.2 mmol/L Previous: 5-20 mg/dLCBC W/PLT COUNT & AUTO [id number] 04:31:00 Test Item Value Reference Range Interpretation Comments WHITE BLOOD CELL COUNT (BEAKER) 10.4 K/ L 3.5-10.5 (test code = 775) RED BLOOD CELL COUNT (BEAKER) 2.65 M/ L 4.63-6.08 L (test code = 761) HEMOGLOBIN (BEAKER) (test code = 8.0 GM/DL 13.7-17.5 L 410) HEMATOCRIT (BEAKER) (test code = 24.8 % 40.1-51.0 L 411) MEAN CORPUSCULAR VOLUME (BEAKER) 93.6 fL 79.0-92.2 H (test code = 753) MEAN CORPUSCULAR HEMOGLOBIN 30.2 pg 25.7-32.2 (BEAKER) (test code = 751) MEAN CORPUSCULAR HEMOGLOBIN CONC 32.3 GM/DL 32.3-36.5 (BEAKER) (test code = 752) RED CELL DISTRIBUTION WIDTH 13.4 % 11.6-14.4 (BEAKER) (test code = 412) PLATELET COUNT (BEAKER) (test 249 K/CU MM 150-450 code = 756) MEAN PLATELET VOLUME (BEAKER) 11.2 fL 9.4-12.4 (test code = 754) NUCLEATED RED BLOOD CELLS 0 /100 WBC 0-0 (BEAKER) (test code = 413) NEUTROPHILS RELATIVE PERCENT 87 % (BEAKER) (test code = 429) LYMPHOCYTES RELATIVE PERCENT 4 % (BEAKER) (test code = 430) MONOCYTES RELATIVE PERCENT 9 % (BEAKER) (test code = 431) EOSINOPHILS RELATIVE PERCENT 0 % (BEAKER) (test code = 432) BASOPHILS RELATIVE PERCENT 0 % (BEAKER) (test code = 437) NEUTROPHILS ABSOLUTE COUNT 9.02 K/ L 1.78-5.38 H (BEAKER) (test code = 670) LYMPHOCYTES ABSOLUTE COUNT 0.41 K/ L 1.32-3.57 L (BEAKER) (test code = 414) MONOCYTES ABSOLUTE COUNT (BEAKER) 0.90 K/ L 0.30-0.82 H (test code = 415) EOSINOPHILS ABSOLUTE COUNT 0.00 K/ L 0.04-0.54 L (BEAKER) (test code = 416) BASOPHILS ABSOLUTE COUNT (BEAKER) 0.01 K/ L 0.01-0.08 (test code = 417) IMMATURE GRANULOCYTES-RELATIVE 1 % 0-1 PERCENT (BEAKER) (test code = 5471) CALCIUM, [id number] 04:30:00 Test Item Value Reference Range Interpretation Comments CALCIUM IONIZED (BEAKER) (test 1.06 mmol/L 1.12-1.27 L code = 698) PH, BLOOD (BEAKER) (test code = 7.36 1810) POCT-GLUCOSE [id number] 18:35:00 Test Item Value Reference Range Interpretation Comments POC-GLUCOSE METER 141 mg/dL 70-110 H TESTED AT [facility] 6720 (BEAKER) (test [facility] [address] CARDIOLIPIN ANTIBODIES, IGG AND [id number] 16:28:00 Test Item Value Reference Range Interpretation Comments ANTICARDIOLIPIN IGG ANTIBODY (BEAKER) < GPL (test code = 712) ANTICARDIOLIPIN IGM ANTIBODY (BEAKER) 1.9 MPL (test code = 713) Anticardiolipin IgG Result Interpretation:NEG: <20 GPL; U/mlPOS: >/=20 GPL; U/mlAnticardiolipin IgM Result Interpretation:NEG: <20 MPL; U/mlPOS: >/=20 MPL; U/mlHGB/HCT (H&H) - STAT [id number] 16:27:00 Test Item Value Reference Range Interpretation Comments HEMOGLOBIN (BEAKER) (test code = 9.0 g/dL 13.0-16.8 L 410) HEMATOCRIT (BEAKER) (test code = 26.0 % 40.0-50.0 L 411) CALCIUM, [id number] 16:27:00 Test Item Value Reference Range Interpretation Comments CALCIUM IONIZED (BEAKER) (test 1.07 mmol/L 1.12-1.27 L code = 698) PH, BLOOD (BEAKER) (test code = 7.43 1810) POTASSIUM-STAT [id number] 16:20:00 Test Item Value Reference Range Interpretation Comments POTASSIUM (BEAKER) (test code = 3.8 meq/L 3.6-5.5 379) BLOOD GAS, [id number] 16:19:00 Test Item Value Reference Range Interpretation Comments PH ARTERIAL (BEAKER) (test code = 7.42 7.35-7.45 383) PCO2 ARTERIAL (BEAKER) (test code 40 mm Hg 35-45 = 384) PO2 ARTERIAL (BEAKER) (test code = 80 mm Hg 80-90 385) O2 SATURATION ARTERIAL (BEAKER) 96.1 % 96.0-97.0 (test code = 386) HCO3 ARTERIAL (BEAKER) (test code 25 mmol/L 21-29 = 388) BASE EXCESS ARTERIAL (BEAKER) 0.9 mmol/L -2.0-3.0 (test code = 387) PATIENT TEMPERATURE (BEAKER) (test 37.0 code = 1818) FIO2 (BEAKER) (test code = 1819) 100 GLUCOSE-STAT [id number] 16:19:00 Test Item Value Reference Range Interpretation Comments GLUCOSE RANDOM (BEAKER) (test code 142 mg/dL 70-110 H = 652) POCT-GLUCOSE [id number] 15:42:00 Test Item Value Reference Range Interpretation Comments POC-GLUCOSE METER 157 mg/dL 70-110 H TESTED AT [place] [address] (BEAKER) (test code = [facility] [place] 1538) [address] THROMBOELASTOGRAPH (TEG)2017-06-05 14:03:00 Test Item Value Reference Range Interpretation Comments TEG ACTIVATED CLOTTING TIME 6.3 minutes 4.0-7.0 (BEAKER) (test code = 1407) TEG FIBRINOGEN ACTIVITY (BEAKER) 71.2 degrees 61.0-73.0 (test code = 1408) TEG PLT. AGGREGATION (BEAKER) 65.9 MM 55.0-65.0 H (test code = 1409) TEG FIBRINOLYSIS (BEAKER) (test 0.6 % 0.0-5.0 code = 1410) TGH ACTIVATED CLOTTING TIME 6.2 minutes 4.0-7.0 (BEAKER) (test code = 1411) TGH FIBRINOGEN ACTIVITY (BEAKER) 73.3 degrees 61.0-73.0 H (test code = 1412) TGH PLT. AGGREGATION (BEAKER) 69.1 MM 55.0-65.0 H (test code = 1413) TGH FIBRINOLYSIS (BEAKER) (test 0.0 % 0.0-5.0 code = 1414) RAD, CHEST, 1 VIEW, NON [id number] 13:50:00Reason for exam:->Immediate post cardiothoracic surgery, ET placement.FINAL REPORT TECHNIQUE: Frontal chest radiograph dated 06/05/2017. CLINICAL HISTORY: Immediate post surgery COMPARISON STUDY: Chest radiograph dated 06/03/2017 IMPRESSION:Endotracheal tube is 4.9 cm above the taurus. [...] aligned. No fracture. Signed: Julian Olivaseport Verified Date/Time: 06/05/2017 13:50:03 Reading Location: [facility] Radiology Reading Room CBC W/PLT COUNT & AUTO [id number] 13:21:00 Test Item Value Reference Range Interpretation Comments WHITE BLOOD CELL COUNT (BEAKER) 14.9 K/ L 3.5-10.5 H (test code = 775) RED BLOOD CELL COUNT (BEAKER) 3.17 M/ L 4.63-6.08 L (test code = 761) HEMOGLOBIN (BEAKER) (test code = 9.5 GM/DL 13.7-17.5 L 410) HEMATOCRIT (BEAKER) (test code = 29.6 % 40.1-51.0 L 411) MEAN CORPUSCULAR VOLUME (BEAKER) 93.4 fL 79.0-92.2 H (test code = 753) MEAN CORPUSCULAR HEMOGLOBIN 30.0 pg 25.7-32.2 (BEAKER) (test code = 751) MEAN CORPUSCULAR HEMOGLOBIN CONC 32.1 GM/DL 32.3-36.5 L (BEAKER) (test code = 752) RED CELL DISTRIBUTION WIDTH 12.9 % 11.6-14.4 (BEAKER) (test code = 412) PLATELET COUNT (BEAKER) (test 208 K/CU MM 150-450 code = 756) MEAN PLATELET VOLUME (BEAKER) 10.3 fL 9.4-12.4 (test code = 754) NUCLEATED RED BLOOD CELLS 0 /100 WBC 0-0 (BEAKER) (test code = 413) NEUTROPHILS RELATIVE PERCENT 92 % (BEAKER) (test code = 429) LYMPHOCYTES RELATIVE PERCENT 4 % (BEAKER) (test code = 430) MONOCYTES RELATIVE PERCENT 2 % (BEAKER) (test code = 431) EOSINOPHILS RELATIVE PERCENT 1 % (BEAKER) (test code = 432) BASOPHILS RELATIVE PERCENT 0 % (BEAKER) (test code = 437) NEUTROPHILS ABSOLUTE COUNT 13.69 K/ L 1.78-5.38 H (BEAKER) (test code = 670) LYMPHOCYTES ABSOLUTE COUNT 0.64 K/ L 1.32-3.57 L (BEAKER) (test code = 414) MONOCYTES ABSOLUTE COUNT (BEAKER) 0.26 K/ L 0.30-0.82 L (test code = 415) EOSINOPHILS ABSOLUTE COUNT 0.19 K/ L 0.04-0.54 (BEAKER) (test code = 416) BASOPHILS ABSOLUTE COUNT (BEAKER) 0.03 K/ L 0.01-0.08 (test code = 417) IMMATURE GRANULOCYTES-RELATIVE 1 % 0-1 PERCENT (BEAKER) (test code = 2801) BASIC METABOLIC [id number] 13:18:00 Test Item Value Reference Range Interpretation Comments SODIUM (BEAKER) 139 meq/L 136-145 (test code = 381) POTASSIUM (BEAKER) 4.7 meq/L 3.5-5.1 Specimen slightly (test code = 379) hemolyzed CHLORIDE (BEAKER) 108 meq/L 98-107 H (test code = 382) CO2 (BEAKER) (test 24 meq/L 22-29 code = 355) BLOOD UREA NITROGEN 10 mg/dL 7-21 (BEAKER) (test code = 354) CREATININE (BEAKER) 0.82 mg/dL 0.57-1.25 Specimen slightly (test code = 358) hemolyzed GLUCOSE RANDOM 133 mg/dL 70-105 H (BEAKER) (test code = 652) CALCIUM (BEAKER) 8.5 mg/dL 8.4-10.2 (test code = 697) EGFR (BEAKER) (test 93 mL/min/1.73 ESTIMA MARKY GFR IS code = 1092) sq m NOT ACCURATE CREATININE CLEARANCE IN PREDICTING GLOMERULAR FILTRATION RATE . ESTIMATED GFR I S NOT APPLICABLE FOR DIALYSIS PATIEN TS. [id number] 13:18:00 Test Item Value Reference Range Interpretation Comments MAGNESIUM (BEAKER) 2.9 mg/dL 1.6-2.6 H Specimen slightly (test code = 627) hemolyzed PROTHROMBIN [id number] 13:11:00 Test Item Value Reference Range Interpretation Comments PROTIME (BEAKER) (test code = 16.3 seconds 11.7-14.7 H 759) INR (BEAKER) (test code = 370) 1.3 <=5.9 RECOMMENDED COUMADIN/WARFARIN INR THERAPY RANGESSTANDARD DOSE: 2.0 - 3.0 Includes: PROPHYLAXIS forvenous thrombosis, systemic embolization; TREATMENT for venous thrombosis and/or pulmonary embolus.HIGH RISK: Target INR is 2.5-3.5 for patients with mechanical heart valves.[id number] 13:11:00 Test Item Value Reference Range Interpretation Comments FIBRINOGEN LEVEL (BEAKER) (test 359 mg/dl 225-434 code = 658) [id number] 13:11:00 Test Item Value Reference Range Interpretation Comments PARTIAL THROMBOPLASTIN TIME 32.6 seconds 22.5-36.0 (BEAKER) (test code = 760) LACTIC ACID, ARTERIAL, WHOLE [id number] 13:06:00 Test Item Value Reference Range Interpretation Comments LACTATE BLOOD 1.1 mmol/L 0.5-2.2 Specimen sligh tly ARTERIAL (2) (BEAKER) hemoly zed (test code = 2874) Effective 10/06/2015: Units/Reference Range ChangeNew: 0.5-2.2 mmol/L Previous: 5-20 mg/dLCALCIUM, [id number] 12:50:00 Test Item Value Reference Range Interpretation Comments CALCIUM IONIZED (BEAKER) (test 1.11 mmol/L 1.12-1.27 L code = 698) PH, BLOOD (BEAKER) (test code = 7.32 1810) BLOOD GAS, [id number] 12:50:00 Test Item Value Reference Range Interpretation Comments PH ARTERIAL (BEAKER) (test code = 7.33 7.35-7.45 L 383) PCO2 ARTERIAL (BEAKER) (test code 48 mmHg 35-45 H = 384) PO2 ARTERIAL (BEAKER) (test code 144 mmHg 80-90 H = 385) O2 SATURATION ARTERIAL (BEAKER) 98.7 % 96.0-97.0 H (test code = 386) HCO3 ARTERIAL (BEAKER) (test code 25 mmol/L 21-29 = 388) BASE EXCESS ARTERIAL (BEAKER) -1.6 mmol/L -2.0-3.0 (test code = 387) PATIENT TEMPERATURE (BEAKER) 36.7 C (test code = 1818) FIO2 (BEAKER) (test code = 1819) 60.0 % OXYGEN SATURATION, [id number] 12:45:00 Test Item Value Reference Range Interpretation Comments O2 SATURATION (MEASURED) (BEAKER) 52.5 % (test code = 1455) THROMBOELASTOGRAPH (TEG)2017-06-05 11:35:00 Test Item Value Reference Range Interpretation Comments TEG ACTIVATED CLOTTING TIME 6.8 minutes 4.0-7.0 (BEAKER) (test code = 1407) TEG FIBRINOGEN ACTIVITY (BEAKER) 52.7 degrees 61.0-73.0 L (test code = 1408) TEG PLT. AGGREGATION (BEAKER) 76.1 MM 55.0-65.0 H (test code = 1409) TGH ACTIVATED CLOTTING TIME 6.8 minutes 4.0-7.0 ([facility]) (test code = 1411) TGH FIBRINOGEN ACTIVITY ([facility]) 78.3 degrees 61.0-73.0 H (test code = 1412) TGH PLT. AGGREGATION ([facility]) 60.1 MM 55.0-65.0 (test code = 1413) [id number] 11:21:00 Test Item Value Reference Range Interpretation Comments ACTIVATED CLOTTING TIME 131 sec TEST ED AT [place] [address] ([facility]) (test code = [place] [address]) [id number] 11:21:00 Test Item Value Reference Range Interpretation Comments ACTIVATED CLOTTING TIME 406 sec TEST ED AT [place] [address] ([facility]) (test code = [place] [address]) [address] [id number] 11:20:00 Test Item Value Reference Range Interpretation Comments ACTIVATED CLOTTING TIME 417 sec TEST ED AT [place] [address] ([facility]) (test code = [place] [address]) [address] PROTHROMBIN [id number] 11:00:00 Test Item Value Reference Range Interpretation Comments PROTIME ([facility]) (test code = 17.9 seconds 11.7-14.7 H 759) INR ([facility]) (test code = 370) 1.5 <=5.9 RECOMMENDED COUMADIN/WARFARIN INR THERAPY RANGESSTANDARD DOSE: 2.0 - 3.0 Includes: PROPHYLAXIS forvenous thrombosis, systemic embolization; TREATMENT for venous thrombosis and/or pulmonary embolus.HIGH RISK: Target INR is 2.5-3.5 for patients with mechanical heart valves.[id number] 11:00:00 Test Item Value Reference Range Interpretation Comments FIBRINOGEN LEVEL ([facility]) (test 314 mg/dl 225-434 code = 658) [id number] 11:00:00 Test Item Value Reference Range Interpretation Comments PARTIAL THROMBOPLASTIN TIME 36.3 seconds 22.5-36.0 H ([facility]) (test code = 760) PLATELET [id number] 10:58:00 Test Item Value Reference Range Interpretation Comments PLATELET COUNT 161 K/CU MM 150-450 Discordant re sult (BEAKER) (test code compared to previous = 756) result; clinica l correlation req uired. BLOOD GAS, [id number] 10:45:00 Test Item Value Reference Range Interpretation Comments PH ARTERIAL (BEAKER) (test code = 7.39 7.35-7.45 383) PCO2 ARTERIAL (BEAKER) (test code 44 mmHg 35-45 = 384) PO2 ARTERIAL (BEAKER) (test code = 241 mmHg 80-90 H 385) O2 SATURATION ARTERIAL (BEAKER) 99.5 % 96.0-97.0 H (test code = 386) HCO3 ARTERIAL (BEAKER) (test code 27 mmol/L 21-29 = 388) BASE EXCESS ARTERIAL (BEAKER) 1.1 mmol/L -2.0-3.0 (test code = 387) PATIENT TEMPERATURE (BEAKER) (test 35.8 C code = 1818) FIO2 (BEAKER) (test code = 1819) 100.0 % SODIUM NA-STAT [id number] 10:45:00 Test Item Value Reference Range Interpretation Comments SODIUM (BEAKER) (test code = 381) 134 meq/L 135-148 L GLUCOSE-STAT [id number] 10:45:00 Test Item Value Reference Range Interpretation Comments GLUCOSE RANDOM (BEAKER) (test code 130 mg/dL 70-110 H = 652) HGB/HCT (H&H) - STAT [id number] 10:45:00 Test Item Value Reference Range Interpretation Comments HEMOGLOBIN (BEAKER) (test code = 8.5 g/dL 13.0-16.8 L 410) HEMATOCRIT (BEAKER) (test code = 25.0 % 40.0-50.0 L 411) CALCIUM, [id number] 10:44:00 Test Item Value Reference Range Interpretation Comments CALCIUM IONIZED (BEAKER) (test 1.03 mmol/L 1.12-1.27 L code = 698) PH, BLOOD (BEAKER) (test code = 7.37 1810) POTASSIUM-STAT [id number] 10:44:00 Test Item Value Reference Range Interpretation Comments POTASSIUM (BEAKER) (test code = 5.2 meq/L 3.6-5.5 379) POTASSIUM-STAT [id number] 09:58:00 Test Item Value Reference Range Interpretation Comments POTASSIUM (BEAKER) 6.3 meq/L 3.6-5.5 HH Specimen not hemolyzed (test code = 379) BLOOD GAS, [id number] 09:57:00 Test Item Value Reference Range Interpretation Comments PH ARTERIAL (BEAKER) (test code = 7.44 7.35-7.45 383) PCO2 ARTERIAL (BEAKER) (test code 36 mmHg 35-45 = 384) PO2 ARTERIAL (BEAKER) (test code = 247 mmHg 80-90 H 385) O2 SATURATION ARTERIAL (BEAKER) 99.6 % 96.0-97.0 H (test code = 386) HCO3 ARTERIAL (BEAKER) (test code 25 mmol/L 21-29 = 388) BASE EXCESS ARTERIAL (BEAKER) 0.1 mmol/L -2.0-3.0 (test code = 387) PATIENT TEMPERATURE (BEAKER) (test 35.0 C code = 1818) FIO2 (BEAKER) (test code = 1819) 75.0 % SODIUM NA-STAT [id number] 09:57:00 Test Item Value Reference Range Interpretation Comments SODIUM (BEAKER) (test code = 381) 132 meq/L 135-148 L HGB/HCT (H&H) - STAT [id number] 09:56:00 Test Item Value Reference Range Interpretation Comments HEMOGLOBIN (BEAKER) (test code = 8.0 g/dL 13.0-16.8 L 410) HEMATOCRIT (BEAKER) (test code = 24.0 % 40.0-50.0 L 411) GLUCOSE-STAT [id number] 09:55:00 Test Item Value Reference Range Interpretation Comments GLUCOSE RANDOM (BEAKER) (test code = 85 mg/dL 70-110 652) BLOOD GAS, [id number] 09:36:00 Test Item Value Reference Range Interpretation Comments PH ARTERIAL (BEAKER) (test code = 7.37 7.35-7.45 383) PCO2 ARTERIAL (BEAKER) (test code 39 mmHg 35-45 = 384) PO2 ARTERIAL (BEAKER) (test code 316 mmHg 80-90 H = 385) O2 SATURATION ARTERIAL (BEAKER) 99.7 % 96.0-97.0 H (test code = 386) HCO3 ARTERIAL (BEAKER) (test code 24 mmol/L 21-29 = 388) BASE EXCESS ARTERIAL (BEAKER) -3.1 mmol/L -2.0-3.0 L (test code = 387) PATIENT TEMPERATURE (BEAKER) 30.8 C (test code = 1818) FIO2 (BEAKER) (test code = 1819) 65.0 % SODIUM NA-STAT [id number] 09:36:00 Test Item Value Reference Range Interpretation Comments SODIUM (BEAKER) (test code = 381) 129 meq/L 135-148 L POTASSIUM-STAT [id number] 09:36:00 Test Item Value Reference Range Interpretation Comments POTASSIUM (BEAKER) (test code = 5.9 meq/L 3.6-5.5 H 379) HGB/HCT (H&H) - STAT [id number] 09:36:00 Test Item Value Reference Range Interpretation Comments HEMOGLOBIN (BEAKER) (test code = 7.8 g/dL 13.0-16.8 L 410) HEMATOCRIT (BEAKER) (test code = 23.0 % 40.0-50.0 L 411) GLUCOSE-STAT [id number] 09:34:00 Test Item Value Reference Range Interpretation Comments GLUCOSE RANDOM (BEAKER) (test code = 97 mg/dL 70-110 652) CALCIUM, [id number] 08:17:00 Test Item Value Reference Range Interpretation Comments CALCIUM IONIZED (BEAKER) (test 1.14 mmol/L 1.12-1.27 code = 698) PH, BLOOD (BEAKER) (test code = 7.38 1810) BLOOD GAS, [id number] 08:14:00 Test Item Value Reference Range Interpretation Comments PH ARTERIAL (BEAKER) (test code = 7.38 7.35-7.45 383) PCO2 ARTERIAL (BEAKER) (test code 46 mmHg 35-45 H = 384) PO2 ARTERIAL (BEAKER) (test code = 232 mmHg 80-90 H 385) O2 SATURATION ARTERIAL (BEAKER) 99.5 % 96.0-97.0 H (test code = 386) HCO3 ARTERIAL (BEAKER) (test code 27 mmol/L 21-29 = 388) BASE EXCESS ARTERIAL (BEAKER) 1.2 mmol/L -2.0-3.0 (test code = 387) PATIENT TEMPERATURE (BEAKER) (test 37.0 C code = 1818) FIO2 (BEAKER) (test code = 1819) 60.0 % HGB/HCT (H&H) - STAT [id number] 08:14:00 Test Item Value Reference Range Interpretation Comments HEMOGLOBIN (BEAKER) (test code = 13.2 g/dL 13.0-16.8 410) HEMATOCRIT (BEAKER) (test code = 39.0 % 40.0-50.0 L 411) GLUCOSE-STAT [id number] 08:13:00 Test Item Value Reference Range Interpretation Comments GLUCOSE RANDOM (BEAKER) (test code 110 mg/dL 70-110 = 652) SODIUM NA-STAT [id number] 08:13:00 Test Item Value Reference Range Interpretation Comments SODIUM (BEAKER) (test code = 381) 137 meq/L 135-148 POTASSIUM-STAT [id number] 08:13:00 Test Item Value Reference Range Interpretation Comments POTASSIUM (BEAKER) (test code = 4.3 meq/L 3.6-5.5 379) CALCIUM, [id number] 05:55:00 Test Item Value Reference Range Interpretation Comments CALCIUM IONIZED (BEAKER) (test 1.09 mmol/L 1.12-1.27 L code = 698) PH, BLOOD (BEAKER) (test code = 7.36 1810) [id number] 05:19:00 Test Item Value Reference Range Interpretation Comments PHOSPHORUS (BEAKER) (test code = 3.4 mg/dL 2.3-4.7 604) [id number] 05:19:00 Test Item Value Reference Range Interpretation Comments MAGNESIUM (BEAKER) (test code = 2.1 mg/dL 1.6-2.6 627) BASIC METABOLIC [id number] 05:19:00 Test Item Value Reference Range Interpretation Comments SODIUM (BEAKER) 136 meq/L 136-145 (test code = 381) POTASSIUM (BEAKER) 4.6 meq/L 3.5-5.1 (test code = 379) CHLORIDE (BEAKER) 103 meq/L 98-107 (test code = 382) CO2 (BEAKER) (test 24 meq/L 22-29 code = 355) BLOOD UREA NITROGEN 12 mg/dL 7-21 (BEAKER) (test code = 354) CREATININE (BEAKER) 1.15 mg/dL 0.57-1.25 (test code = 358) GLUCOSE RANDOM 101 mg/dL 70-105 (BEAKER) (test code = 652) CALCIUM (BEAKER) 9.8 mg/dL 8.4-10.2 (test code = 697) EGFR (BEAKER) (test 63 mL/min/1.73 ESTIMA MARKY GFR IS code = 1092) sq m NOT ACCURATE CREATININE CLEARANCE IN PREDICTING GLOMERULAR FILTRATION RATE . ESTIMATED GFR I S NOT APPLICABLE FOR DIALYSIS PATIEN TS. [id number] 05:08:00 Test Item Value Reference Range Interpretation Comments PARTIAL THROMBOPLASTIN TIME 31.3 seconds 22.5-36.0 (BEAKER) (test code = 760) PROTHROMBIN TIME/[id number] 05:07:00 Test Item Value Reference Range Interpretation Comments PROTIME (BEAKER) (test code = 14.8 seconds 11.7-14.7 H 759) INR (BEAKER) (test code = 370) 1.2 <=5.9 RECOMMENDED COUMADIN/WARFARIN INR THERAPY RANGESSTANDARD DOSE: 2.0 - 3.0 Includes: PROPHYLAXIS forvenous thrombosis, systemic embolization; TREATMENT for venous thrombosis and/or pulmonary embolus.HIGH RISK: Target INR is 2.5-3.5 for patients with mechanical heart valves.CBC W/PLT COUNT & AUTO DIFFERENTIAL 2017-06-05 05:03:00 Test Item Value Reference Range Interpretation Comments WHITE BLOOD CELL COUNT (BEAKER) 9.8 K/ L 3.5-10.5 (test code = 775) RED BLOOD CELL COUNT (BEAKER) 4.60 M/ L 4.63-6.08 L (test code = 761) HEMOGLOBIN (BEAKER) (test code = 13.6 GM/DL 13.7-17.5 L 410) HEMATOCRIT (BEAKER) (test code = 42.3 % 40.1-51.0 411) MEAN CORPUSCULAR VOLUME (BEAKER) 92.0 fL 79.0-92.2 (test code = 753) MEAN CORPUSCULAR HEMOGLOBIN 29.6 pg 25.7-32.2 (BEAKER) (test code = 751) MEAN CORPUSCULAR HEMOGLOBIN CONC 32.2 GM/DL 32.3-36.5 L (BEAKER) (test code = 752) RED CELL DISTRIBUTION WIDTH 13.0 % 11.6-14.4 (BEAKER) (test code = 412) PLATELET COUNT (BEAKER) (test 379 K/CU MM 150-450 code = 756) MEAN PLATELET VOLUME (BEAKER) 10.3 fL 9.4-12.4 (test code = 754) NUCLEATED RED BLOOD CELLS 0 /100 WBC 0-0 (BEAKER) (test code = 413) NEUTROPHILS RELATIVE PERCENT 77 % (BEAKER) (test code = 429) LYMPHOCYTES RELATIVE PERCENT 12 % (BEAKER) (test code = 430) MONOCYTES RELATIVE PERCENT 7 % (BEAKER) (test code = 431) EOSINOPHILS RELATIVE PERCENT 3 % (BEAKER) (test code = 432) BASOPHILS RELATIVE PERCENT 1 % (BEAKER) (test code = 437) NEUTROPHILS ABSOLUTE COUNT 7.55 K/ L 1.78-5.38 H (BEAKER) (test code = 670) LYMPHOCYTES ABSOLUTE COUNT 1.22 K/ L 1.32-3.57 L (BEAKER) (test code = 414) MONOCYTES ABSOLUTE COUNT (BEAKER) 0.72 K/ L 0.30-0.82 (test code = 415) EOSINOPHILS ABSOLUTE COUNT 0.25 K/ L 0.04-0.54 (BEAKER) (test code = 416) BASOPHILS ABSOLUTE COUNT (BEAKER) 0.05 K/ L 0.01-0.08 (test code = 417) IMMATURE GRANULOCYTES-RELATIVE 0 % 0-1 PERCENT (BEAKER) (test code = 2801) BASIC METABOLIC [id number] 15:32:00 Test Item Value Reference Range Interpretation Comments SODIUM (BEAKER) 137 meq/L 136-145 (test code = 381) POTASSIUM (BEAKER) 4.4 meq/L 3.5-5.1 (test code = 379) CHLORIDE (BEAKER) 101 meq/L 98-107 (test code = 382) CO2 (BEAKER) (test 26 meq/L 22-29 code = 355) BLOOD UREA NITROGEN 13 mg/dL 7-21 (BEAKER) (test code = 354) CREATININE (BEAKER) 1.10 mg/dL 0.57-1.25 (test code = 358) GLUCOSE RANDOM 102 mg/dL 70-105 (BEAKER) (test code = 652) CALCIUM (BEAKER) 9.7 mg/dL 8.4-10.2 (test code = 697) EGFR (BEAKER) (test 66 mL/min/1.73 ESTIMA MARKY GFR IS code = 1092) sq m NOT ACCURATE CREATININE CLEARANCE IN PREDICTING GLOMERULAR FILTRATION RATE . ESTIMATED GFR I S NOT APPLICABLE FOR DIALYSIS PATIEN [id number] 15:26:00 Test Item Value Reference Range Interpretation Comments PARTIAL THROMBOPLASTIN TIME 37.7 seconds 22.5-36.0 H (BEAKER) (test code = 760) CBC W/PLT COUNT & AUTO [id number] 15:15:00 Test Item Value Reference Range Interpretation Comments WHITE BLOOD CELL COUNT (BEAKER) 9.0 K/ L 3.5-10.5 (test code = 775) RED BLOOD CELL COUNT (BEAKER) 4.42 M/ L 4.63-6.08 L (test code = 761) HEMOGLOBIN (BEAKER) (test code = 13.1 GM/DL 13.7-17.5 L 410) HEMATOCRIT (BEAKER) (test code = 40.4 % 40.1-51.0 411) MEAN CORPUSCULAR VOLUME (BEAKER) 91.4 fL 79.0-92.2 (test code = 753) MEAN CORPUSCULAR HEMOGLOBIN 29.6 pg 25.7-32.2 (BEAKER) (test code = 751) MEAN CORPUSCULAR HEMOGLOBIN CONC 32.4 GM/DL 32.3-36.5 (BEAKER) (test code = 752) RED CELL DISTRIBUTION WIDTH 12.8 % 11.6-14.4 (BEAKER) (test code = 412) PLATELET COUNT (BEAKER) (test 364 K/CU MM 150-450 code = 756) MEAN PLATELET VOLUME (BEAKER) 10.3 fL 9.4-12.4 (test code = 754) NUCLEATED RED BLOOD CELLS 0 /100 WBC 0-0 (BEAKER) (test code = 413) NEUTROPHILS RELATIVE PERCENT 78 % (BEAKER) (test code = 429) LYMPHOCYTES RELATIVE PERCENT 12 % (BEAKER) (test code = 430) MONOCYTES RELATIVE PERCENT 8 % (BEAKER) (test code = 431) EOSINOPHILS RELATIVE PERCENT 2 % (BEAKER) (test code = 432) BASOPHILS RELATIVE PERCENT 0 % (BEAKER) (test code = 437) NEUTROPHILS ABSOLUTE COUNT 6.96 K/ L 1.78-5.38 H (BEAKER) (test code = 670) LYMPHOCYTES ABSOLUTE COUNT 1.06 K/ L 1.32-3.57 L (BEAKER) (test code = 414) MONOCYTES ABSOLUTE COUNT (BEAKER) 0.68 K/ L 0.30-0.82 (test code = 415) EOSINOPHILS ABSOLUTE COUNT 0.19 K/ L 0.04-0.54 (BEAKER) (test code = 416) BASOPHILS ABSOLUTE COUNT (BEAKER) 0.04 K/ L 0.01-0.08 (test code = 417) IMMATURE GRANULOCYTES-RELATIVE 1 % 0-1 PERCENT (BEAKER) (test code = 2801) CBC (HEMOGRAM ONLY)2017-06-04 06:04:00 Test Item Value Reference Range Interpretation Comments WHITE BLOOD CELL COUNT (BEAKER) 9.2 K/ L 3.5-10.5 (test code = 775) RED BLOOD CELL COUNT (BEAKER) 4.55 M/ L 4.63-6.08 L (test code = 761) HEMOGLOBIN (BEAKER) (test code = 13.5 GM/DL 13.7-17.5 L 410) HEMATOCRIT (BEAKER) (test code = 41.4 % 40.1-51.0 411) MEAN CORPUSCULAR VOLUME (BEAKER) 91.0 fL 79.0-92.2 (test code = 753) MEAN CORPUSCULAR HEMOGLOBIN 29.7 pg 25.7-32.2 (BEAKER) (test code = 751) MEAN CORPUSCULAR HEMOGLOBIN CONC 32.6 GM/DL 32.3-36.5 (BEAKER) (test code = 752) RED CELL DISTRIBUTION WIDTH 13.0 % 11.6-14.4 (BEAKER) (test code = 412) PLATELET COUNT (BEAKER) (test 357 K/CU MM 150-450 code = 756) MEAN PLATELET VOLUME (BEAKER) 10.4 fL 9.4-12.4 (test code = 754) NUCLEATED RED BLOOD CELLS 0 /100 WBC 0-0 (BEAKER) (test code = 413) RAD, CHEST, 1 VIEW, NON [id number] 17:57:00Reason for exam:- >pna/CHFShould this be performed at the bedside?->YesFINAL REPORT History: Pneumonia/CHF. Comparison: None. Findings: A single vie w of the chest is submitted. The cardiomediastinal contours are unremarkable. The lung volumes are low. There is no focal consolidation, pneumothorax, large pleural effusion or evidence of overt pulmonary edema. Right paraspinal surgical clips are present. There is no acute bony abnormality. Signed: Alvino Vargas MDReport Verified Date/Time: 06/03/2017 17:57:05 Reading Location: [address] Reading Room B-TYPE NATRIURETIC FACTOR (BNP)2017-06-03 13:49:00 Test Item Value Reference Range Interpretation Comments B-TYPE NATRIURETIC PEPTIDE (BEAKER) 14 pg/mL 0-100 (test code = 700) OCCULT BLOOD, [id number] 15:10:00 Test Item Value Reference Range Interpretation Comments FECAL OCCULT BLOOD (BEAKER) (test Negative Negative code = 618) SPUTUM CULTURE + GRAM [id number] 15:01:00 Test Item Value Reference Range Interpretation Comments CULTURE (BEAKER) 4+ Normal respiratory (test code = 1095) pavan present GRAM STAIN RESULT 4+ WBCs (BEAKER) (test code = 1123) GRAM STAIN RESULT 0-5 epithelial cells (BEAKER) (test code = 41106) GRAM STAIN RESULT 3+ gram negative rods (BEAKER) (test code = 56256) GRAM STAIN RESULT 1+ gram positive rods (BEAKER) (test code = 564730) GRAM STAIN RESULT 4+ gram positive cocci (BEAKER) (test code = in chains, pairs and 634199) clusters EBV-VCA ANTIBODY, [id number] 16:02:00 Test Item Value Reference Range Interpretation Comments JESUS-CRUZ VCA IGG (BEAKER) (test Positive code = 983) EBV-VCA ANTIBODY, [id number] 16:02:00 Test Item Value Reference Range Interpretation Comments JESUS-CRUZ VCA IGM (BEAKER) (test Negative code = 984) OCCULT BLOOD, [id number] 08:46:00 Test Item Value Reference Range Interpretation Comments FECAL OCCULT BLOOD (BEAKER) (test Negative Negative code = 618) CREATINE KINASE (CK), TOTAL AND [id number] 22:42:00 Test Item Value Reference Range Interpretation Comments CREATINE KINASE TOTAL (BEAKER) 133 U/L 29-200 (test code = 380) CREATINE KINASE-MB (BEAKER) (test 1.5 ng/mL 0.0-6.6 code = 750) CREATINE KINASE-MB INDEX (BEAKER) 1.1 % (test code = 395) CK-MB Reference Range:<6.7 Normal6.7-10.0 Borderline>10.0 AbnormalTROPONIN [id number] 22:42:00 Test Item Value Reference Range Interpretation Comments TROPONIN I (BEAKER) (test code = 397) < ng/mL 0.00-0.03 Troponin I (TnI) levels [...] acidosis, acute neurological disease, and persistent tachyarrhythmia.MONONUCLEOSIS [id number] 22:37:00 Test Item Value Reference Range Interpretation Comments HETEROPHILE ANTIBODIES (BEAKER) Negative Negative (test code = 621) CBC (HEMOGRAM ONLY)2017-05-31 22:21:00 Test Item Value Reference Range Interpretation Comments WHITE BLOOD CELL COUNT (BEAKER) 7.6 K/ L 3.5-10.5 (test code = 775) RED BLOOD CELL COUNT (BEAKER) 4.16 M/ L 4.63-6.08 L (test code = 761) HEMOGLOBIN (BEAKER) (test code = 12.4 GM/DL 13.7-17.5 L 410) HEMATOCRIT (BEAKER) (test code = 37.8 % 40.1-51.0 L 411) MEAN CORPUSCULAR VOLUME (BEAKER) 90.9 fL 79.0-92.2 (test code = 753) MEAN CORPUSCULAR HEMOGLOBIN 29.8 pg 25.7-32.2 (BEAKER) (test code = 751) MEAN CORPUSCULAR HEMOGLOBIN CONC 32.8 GM/DL 32.3-36.5 (BEAKER) (test code = 752) RED CELL DISTRIBUTION WIDTH 12.9 % 11.6-14.4 (BEAKER) (test code = 412) PLATELET COUNT (BEAKER) (test 350 K/CU MM 150-450 code = 756) MEAN PLATELET VOLUME (BEAKER) 10.3 fL 9.4-12.4 (test code = 754) NUCLEATED RED BLOOD CELLS 0 /100 WBC 0-0 (BEAKER) (test code = 413) OCCULT BLOOD, [id number] 15:02:00 Test Item Value Reference Range Interpretation Comments FECAL OCCULT BLOOD (BEAKER) (test Negative Negative code = 618) [id number] 14:18:00 Test Item Value Reference Range Interpretation Comments PARTIAL THROMBOPLASTIN TIME 77.9 seconds 22.5-36.0 H (BEAKER) (test code = 760) [id number] 05:11:00 Test Item Value Reference Range Interpretation Comments PARTIAL THROMBOPLASTIN TIME 82.7 seconds 22.5-36.0 H (BEAKER) (test code = 760) SPUTUM CULTURE + GRAM [id number] 04:55:00 Test Item Value Reference Range Interpretation Comments CULTURE (BEAKER) Oropharyngeal (test code = 1095) contamination, specimen rejected. Recollect requested. GRAM STAIN RESULT 1+ WBCs (BEAKER) (test code = 1123) GRAM STAIN RESULT >25 epithelial cells (BEAKER) (test code = 60399) GRAM STAIN RESULT 2+ gram positive cocci in (BEAKER) (test code chains, pairs and = 51574) clusters GRAM STAIN RESULT 1+ gram variable rods (BEAKER) (test code = 179738) [id number] 22:07:00 Test Item Value Reference Range Interpretation Comments PARTIAL THROMBOPLASTIN TIME 63.7 seconds 22.5-36.0 H (BEAKER) (test code = 760) [id number] 16:10:00 Test Item Value Reference Range Interpretation Comments PARTIAL THROMBOPLASTIN TIME 30.9 seconds 22.5-36.0 (BEAKER) (test code = 760) CT, SOFT TISSUE NECK, [id number] 14:45:00FINAL REPORT CT neck with contrast 05/30/2017 [...] chest for further details. Signed: Mark Rao Verified Date/Time: 05/30/2017 14:45:48 Reading Location: [facility] [address] Radiology Reading Room CT, CHEST, WITH [id number] 14:34:00Pending dischargeFINAL REPORT TECHNIQUE: CT scan of the [...] to reassess pulmonary nodules. Signed: Kaitlynn Rivera MDRaristeoort Verified Date/Time: 05/30/2017 14:34:32 Reading Location: [place] [address] CT Body Reading Room RAD, SINUSES PARANASAL, MIN 3 [id number] 14:03:00 Reason for exam:->coughShould this be performed at the bedside?->YesFINAL REPORT CLINICAL HISTORY: cough TECHNIQUE: Four views of the paranasal sinuses COMPARISON: None IMPRESSION: There are small air-fluid levels in the bilateral maxillary sinuses compatible with acute sinusitis. The paranasal sinuses otherwise appear well-aerated. Signed: Lindsey Leija Verified Date/Time: 05/30/2017 14:03:13 Reading Location: [facility] C013W Consult Reading Room [id number] 08:19:00 Test Item Value Reference Range Interpretation Comments PARTIAL THROMBOPLASTIN TIME 73.2 seconds 22.5-36.0 H (BEAKER) (test code = 760) [id number] 01:56:00 Test Item Value Reference Range Interpretation Comments PARTIAL THROMBOPLASTIN TIME 63.3 seconds 22.5-36.0 H (BEAKER) (test code = 760) RESPIRATORY PANEL [id number] 19:43:00 Test Item Value Reference Range Interpretation Comments HUMAN METAPNEUMOVIRUS Not detected Not detected, (BEAKER) (test code = Inconclusive 2683) RHINOVIRUS (BEAKER) (test Not detected Not detected, code = 2684) Inconclusive INFLUENZA A (BEAKER) (test Not detected Not detected, code = 2685) Inconclusive INFLUENZA A SUBTYPE H1 Not detected Not detected, (BEAKER) (test code = Inconclusive 2686) INFLUENZA A SUBTYPE H3 Not detected Not detected, (BEAKER) (test code = Inconclusive 2687) INFLUENZA A SUBTYPE Not detected Not detected, H1-2009 (BEAKER) (test Inconclusive code = 3198) INFLUENZA B (BEAKER) (test Not detected Not detected, code = 2688) Inconclusive RESPIRATORY SYNCYTIAL Not detected Not detected, VIRUS (BEAKER) (test code Inconclusive = 3199) PARAINFLUENZA VIRUS 1 Not detected Not detected, (BEAKER) (test code = Inconclusive 2691) PARAINFLUENZA VIRUS 2 Not detected Not detected, (BEAKER) (test code = Inconclusive 2692) PARAINFLUENZA VIRUS 3 Not detected Not detected, (BEAKER) (test code = Inconclusive 2693) PARAINFLUENZA VIRUS 4 Not detected Not detected, (BEAKER) (test code = Inconclusive 3200) ADENOVIRUS (BEAKER) (test Not detected Not detected, code = 2694) Inconclusive CORONAVIRUS 229E (BEAKER) Not detected Not detected, (test code = 3201) Inconclusive CORONAVIRUS HKU1 (BEAKER) Not detected Not detected, (test code = 3202) Inconclusive CORONAVIRUS NL63 (BEAKER) Not detected Not detected, (test code = 3203) Inconclusive CORONAVIRUS OC43 (BEAKER) Not detected Not detected, (test code = 3204) Inconclusive BORDETELLA PERTUSSIS Not detected Not detected, (BEAKER) (test code = Inconclusive 3205) CHLAMYDOPHILA PNEUMONIAE Not detected Not detected, (BEAKER) (test code = Inconclusive 3206) MYCOPLASMA PNEUMONIAE Not detected Not detected, (BEAKER) (test code = Inconclusive 3207) [id number] 19:01:00 Test Item Value Reference Range Interpretation Comments PARTIAL THROMBOPLASTIN TIME 50.3 seconds 22.5-36.0 H (BEAKER) (test code = 760) RAPID INFLUENZA A&B [id number] 14:24:00 Test Item Value Reference Range Interpretation Comments RAPID INFLUENZA A AG (BEAKER) Negative Negative, Inconclusive (test code = 1622) RAPID INFLUENZA B AG (BEAKER) Negative Negative, Inconclusive (test code = 1623) [id number] 12:35:00 Test Item Value Reference Range Interpretation Comments PARTIAL THROMBOPLASTIN TIME 40.5 seconds 22.5-36.0 H (BEAKER) (test code = 760) OCCULT BLOOD, [id number] 09:40:00 Test Item Value Reference Range Interpretation Comments FECAL OCCULT BLOOD (BEAKER) (test Negative Negative code = 618) BASIC METABOLIC [id number] 05:52:00 Test Item Value Reference Range Interpretation Comments SODIUM (BEAKER) 138 meq/L 136-145 (test code = 381) POTASSIUM (BEAKER) 3.8 meq/L 3.5-5.1 (test code = 379) CHLORIDE (BEAKER) 103 meq/L 98-107 (test code = 382) CO2 (BEAKER) (test 25 meq/L 22-29 code = 355) BLOOD UREA NITROGEN 9 mg/dL 7-21 (BEAKER) (test code = 354) CREATININE (BEAKER) 0.95 mg/dL 0.57-1.25 (test code = 358) GLUCOSE RANDOM 109 mg/dL 70-105 H (BEAKER) (test code = 652) CALCIUM (BEAKER) 9.3 mg/dL 8.4-10.2 (test code = 697) EGFR (BEAKER) (test 79 mL/min/1.73 ESTIMA MARKY GFR IS code = 1092) sq m NOT ACCURATE CREATININE CLEARANCE IN PREDICTING GLOMERULAR FILTRATION RATE . ESTIMATED GFR I S NOT APPLICABLE FOR DIALYSIS PATIEN TS. [id number] 05:42:00 Test Item Value Reference Range Interpretation Comments PARTIAL THROMBOPLASTIN TIME 36.4 seconds 22.5-36.0 H (BEAKER) (test code = 760) CBC W/PLT COUNT & AUTO [id number] 05:31:00 Test Item Value Reference Range Interpretation Comments WHITE BLOOD CELL COUNT (BEAKER) 7.6 K/ L 3.5-10.5 (test code = 775) RED BLOOD CELL COUNT (BEAKER) 4.57 M/ L 4.63-6.08 L (test code = 761) HEMOGLOBIN (BEAKER) (test code = 13.6 GM/DL 13.7-17.5 L 410) HEMATOCRIT (BEAKER) (test code = 41.6 % 40.1-51.0 411) MEAN CORPUSCULAR VOLUME (BEAKER) 91.0 fL 79.0-92.2 (test code = 753) MEAN CORPUSCULAR HEMOGLOBIN 29.8 pg 25.7-32.2 (BEAKER) (test code = 751) MEAN CORPUSCULAR HEMOGLOBIN CONC 32.7 GM/DL 32.3-36.5 (BEAKER) (test code = 752) RED CELL DISTRIBUTION WIDTH 12.8 % 11.6-14.4 (BEAKER) (test code = 412) PLATELET COUNT (BEAKER) (test 279 K/CU MM 150-450 code = 756) MEAN PLATELET VOLUME (BEAKER) 10.9 fL 9.4-12.4 (test code = 754) NUCLEATED RED BLOOD CELLS 0 /100 WBC 0-0 (BEAKER) (test code = 413) NEUTROPHILS RELATIVE PERCENT 68 % (BEAKER) (test code = 429) LYMPHOCYTES RELATIVE PERCENT 18 % (BEAKER) (test code = 430) MONOCYTES RELATIVE PERCENT 11 % (BEAKER) (test code = 431) EOSINOPHILS RELATIVE PERCENT 2 % (BEAKER) (test code = 432) BASOPHILS RELATIVE PERCENT 0 % (BEAKER) (test code = 437) NEUTROPHILS ABSOLUTE COUNT 5.19 K/ L 1.78-5.38 (BEAKER) (test code = 670) LYMPHOCYTES ABSOLUTE COUNT 1.39 K/ L 1.32-3.57 (BEAKER) (test code = 414) MONOCYTES ABSOLUTE COUNT (BEAKER) 0.85 K/ L 0.30-0.82 H (test code = 415) EOSINOPHILS ABSOLUTE COUNT 0.11 K/ L 0.04-0.54 (BEAKER) (test code = 416) BASOPHILS ABSOLUTE COUNT (BEAKER) 0.02 K/ L 0.01-0.08 (test code = 417) IMMATURE GRANULOCYTES-RELATIVE 0 % 0-1 PERCENT (BEAKER) (test code = 2801) [id number] 18:29:00 Test Item Value Reference Range Interpretation Comments PARTIAL THROMBOPLASTIN TIME 43.4 seconds 22.5-36.0 H (BEAKER) (test code = 760) Prior to initiating heparinCBC (HEMOGRAM ONLY)2017-05-28 18:22:00 Test Item Value Reference Range Interpretation Comments WHITE BLOOD CELL COUNT (BEAKER) 9.0 K/ L 3.5-10.5 (test code = 775) RED BLOOD CELL COUNT (BEAKER) 4.41 M/ L 4.63-6.08 L (test code = 761) HEMOGLOBIN (BEAKER) (test code = 13.1 GM/DL 13.7-17.5 L 410) HEMATOCRIT (BEAKER) (test code = 40.0 % 40.1-51.0 L 411) MEAN CORPUSCULAR VOLUME (BEAKER) 90.7 fL 79.0-92.2 (test code = 753) MEAN CORPUSCULAR HEMOGLOBIN 29.7 pg 25.7-32.2 (BEAKER) (test code = 751) MEAN CORPUSCULAR HEMOGLOBIN CONC 32.8 GM/DL 32.3-36.5 (BEAKER) (test code = 752) RED CELL DISTRIBUTION WIDTH 12.6 % 11.6-14.4 (BEAKER) (test code = 412) PLATELET COUNT (BEAKER) (test 267 K/CU MM 150-450 code = 756) MEAN PLATELET VOLUME (BEAKER) 10.3 fL 9.4-12.4 (test code = 754) NUCLEATED RED BLOOD CELLS 0 /100 WBC 0-0 (BEAKER) (test code = 413)
[2020-12-29 09:55] LABS: Absolute Lymphocytes (CBC) 0.7 K/uL (0.7-4.9); Basophils % 0.2 % (0-1.3); Hematocrit 42.3 % (39.6-49.0); Lymphocytes % 10.2 % (15.3-44.8); MPV 9.9 fL (7.6-11.3); Protime INR 0.95; RBC Red Blood Cell Count 4.56 M/uL (4.33-5.43)
[2020-12-29] MEDS ORDERED: ALBUTEROL INHALER 60 PUFF/8 GM IH ONE (10:07)
[2020-12-29 10:19] LABS: Albumin 3.4 g/dL (3.4-5.0); Bilirubin Direct 0.1 mg/dL (0-0.2); Bilirubin Total 0.4 mg/dL (0.2-1.0); Magnesium 1.9 mg/dL (1.8-2.4); Potassium 3.7 mmol/L (3.5-5.1); Protein, Total 6.9 g/dL (6.4-8.2); Troponin (Emerg Dept Use Only) 0.04 ng/mL (0.0-0.045)
[2020-12-29] MEDS ORDERED: NA CHLORIDE 0.9% 500 ML ONE (10:29)
[2020-12-29 10:33] LABS: Ferritin 975.1 ng/mL (26-388)
[2020-12-29] MEDS ORDERED: ONDANSETRON 4 MG/2 ML VIAL ONE (10:49)
--- NOTE | 2020-12-29 11:11 | EDPHYS ---
Physician Documentation [facility] Name: Davidson Pop Age: 70 yrs Sex: Male : 1950 Arrival Date: 12/29/2020 Time: 09:16 Bed 6 Private MD: ED Physician Ervin Hernandez HPI: 12/29 09:30 This 70 yrs old Male presents to ER via EMS with complaints of covid+, Low cp oxygen. 09:30 The patient has shortness of breath at rest. Onset: The symptoms/episode began/occurred cp gradually, and became worse today. Duration: The symptoms are continuous, and are steadily getting worse. Associated signs and symptoms: Pertinent negatives: chest pain, productive cough, dizziness, fever. Patient reports testing positive for COVID-19 8 days ago. Complains of increasing shortness of breath. Patient reports being treated with IV medications yesterday at [facility] in [place]. Historical: - Allergies: 09:16 Cephalexin; aa5 - Home Meds: 09:55 fluticasone 50 mcg/actuation nasal spsn 1 spray 2 times per day [Active]; levothyroxine hb 100 mcg tab 1 tab once daily [Active]; Singulair 10 mg Oral tab 1 tab once daily [Active]; tramadol 50 mg Oral tab as needed [Active]; aspirin 81 mg Oral tab [Active]; Prilosec 40 mg Oral cpDR 1 cap once daily [Active]; torsemide 20 mg Oral tab 1 tab once daily [Active]; fenofibrate 160 mg oral tab 1 tab once daily [Active]; allopurinol 300 mg Oral tab 1 tab once daily [Active]; - PMHx: 09:16 Hypothyroidism; squamous cell carcinoma; aa5 09:16 Hypertensive disorder; Gout; aa5 09:20 Asthma; aa5 - PSHx: 09:16 Heart Bypass; aa5 - Immunization history:: Adult Immunizations up to date, Client reports having NOT received the Covid vaccine. - Social history:: Smoking status: Patient/guardian denies using tobacco, the patient reports quitting approximately 19 years ago. ROS: 09:32 Constitutional: Negative for body aches, chills, fever, poor PO intake. cp 09:32 Eyes: Negative for injury, pain, redness, and discharge. cp 09:32 ENT: Negative for ear pain, sore throat, difficulty swallowing, difficulty handling secretions. 09:32 Cardiovascular: Negative for chest pain, edema, palpitations. 09:32 Respiratory: Positive for cough, shortness of breath, at rest. 09:32 Abdomen/GI: Negative for abdominal pain, nausea, vomiting, and diarrhea. 09:32 Back: Negative for radiated pain. 09:32 : Negative for urinary symptoms. 09:32 Neuro: Negative for altered mental status, headache, syncope, weakness. 09:32 All other systems are negative. Exam: 09:32 ECG was reviewed by the Attending Physician. cp 09:35 Constitutional: The patient appears in no acute distress, alert, awake, cp non-diaphoretic, non-toxic, well developed, well nourished. 09:35 Head/Face: Normocephalic, atraumatic. cp 09:35 Eyes: Periorbital structures: appear normal, Conjunctiva: normal, no exudate, no injection, Sclera: no appreciated abnormality, Lids and lashes: appear normal, bilaterally. 09:35 ENT: External ear(s): are unremarkable, Nose: is normal, Mouth: Lips: moist, Oral mucosa: pink and intact, moist, Posterior pharynx: Airway: no evidence of obstruction, patent. 09:35 Neck: ROM/movement: is normal, is supple, without pain, no range of motions limitations, no meningismus. 09:35 Chest/axilla: Inspection: normal, Palpation: is normal, no crepitus, no tenderness. 09:35 Cardiovascular: Rate: normal, Rhythm: regular, Edema: is not appreciated, JVD: is not appreciated. 09:35 Respiratory: the patient does not display signs of respiratory distress, Respirations: labored breathing, that is mild, Breath sounds: decreased breath sounds, that are moderate, throughout, stridor, is not appreciated, wheezing: is not appreciated. 09:35 Abdomen/GI: Inspection: abdomen appears normal, Palpation: abdomen is soft and non-tender, in all quadrants. 09:35 Back: pain, is absent, ROM is normal. 09:35 Skin: no rash present. 09:35 Neuro: Orientation: to person, place \T\ time. Mentation: is normal, Cerebellar function: is grossly normal, Motor: moves all fours, strength is normal, Sensation: is normal. Vital Signs: 09:16 BP 112 / 75; Pulse 90; Resp 18 S; Temp 98.0(O); Pulse Ox 100% on 4 lpm NC; aa5 09:31 Pulse Ox 89% on R/A; hb 09:33 Pulse Ox 95% on 2 lpm NC; aa5 10:14 BP 102 / 66; Pulse 87; Resp 17 S; Temp 98.9(O); Pulse Ox 96% on 2 lpm NC; aa5 12:00 BP 107 / 84; Pulse 82; Resp 18 S; Pulse Ox 98% on 2 lpm NC; aa5 16:00 BP 119 / 76; Pulse 84; Resp 16 S; Pulse Ox 97% on 2 lpm NC; aa5 MDM: 09:22 Patient medically screened. cp 11:15 Data reviewed: vital signs, nurses notes, lab test result(s), EKG, radiologic studies, cp plain films. 11:15 Test interpretation: by ED physician or midlevel provider: ECG, plain radiologic cp studies. Response to treatment: the patient's symptoms have markedly improved after treatment, and as a result, I will admit patient. Physician consultation: Hernan Carlos MD was called at 11:00, was contacted at 11:00, regarding admission, to the telemetry unit. patient's condition. 11:15 Antibiotic administration: Not indicated, the patient has a suspected viral illness. 12/29 09:21 Order name: Basic Metabolic Panel; Complete Time: 10:36 12/29 10:36 Interpretation: Normal except: GLUC 112; BUN 25; CRE 1.75; GFR 39. 12/29 09:21 Order name: CBC with Diff; Complete Time: 10:36 12/29 10:36 Interpretation: Normal except: PLT 130; RA% 84.5; LYM% 10.2. 12/29 09:21 Order name: LFT's; Complete Time: 10:36 12/29 09:21 Order name: Magnesium; Complete Time: 10:36 12/29 09:21 Order name: NT PRO-BNP; Complete Time: 10:36 12/29 10:37 Interpretation: Abnormal: NT PRO-BNP 1021. 12/29 09:21 Order name: PT-INR; Complete Time: 10:36 12/29 09:21 Order name: Troponin (emerg Dept Use Only); Complete Time: 10:36 cp 12/29 09:23 Order name: CRP cp 12/29 09:23 Order name: Ferritin cp 12/29 09:23 Order name: C-Reactive Protein; Complete Time: 10:36 EDMS 12/29 09:23 Order name: Ferritin; Complete Time: 10:36 EDMS 12/29 14:27 Order name: C-Reactive Protein EDMS 12/29 14:27 Order name: C-Reactive Protein EDNV 12/29 09:21 Order name: XRAY Chest (1 view); Complete Time: 10:36 cp 12/29 10:37 Interpretation: Report reviewed. cp 12/29 09:21 Order name: EKG; Complete Time: 09:21 cp 12/29 12:30 Order name: Diet Heart Healthy; Complete Time: 12:30 aa5 12/29 14:27 Order name: CONS Physician Consult EDNV 12/29 14:27 Order name: CBC with Automated Diff EDMS 12/29 14:27 Order name: Comprehensive Metabolic Panel EDNV 12/29 14:27 Order name: Comprehensive Metabolic Panel EDMS 12/29 14:27 Order name: D-Dimer EDMS 12/29 14:27 Order name: D-Dimer EDMS 12/29 14:27 Order name: Ferritin EDMS 12/29 14:27 Order name: Ferritin EDMS 12/29 14:27 Order name: CBC with Automated Diff EDMS 12/29 09:21 Order name: Cardiac monitoring; Complete Time: 09:26 cp 12/29 09:21 Order name: EKG - Nurse/Tech; Complete Time: 09:26 cp 12/29 09:21 Order name: IV Saline Lock; Complete Time: 09:40 cp 12/29 09:21 Order name: Labs collected and sent; Complete Time: 09:40 cp 12/29 09:21 Order name: O2 Per Protocol; Complete Time: 09:26 cp 12/29 09:21 Order name: O2 Sat Monitoring; Complete Time: 09:26 cp EC:32 Rate is 90 beats/min. Rhythm is regular. KS interval is normal. QRS interval is normal. cp QT interval is normal. T waves are Inverted in leads V4, V5, V6. Interpreted by me. Reviewed by me. Administered Medications: 09:40 Drug: SOLU-Medrol (methylPrednisoLONE) 80 mg Route: IVP; Site: right antecubital; hb 10:13 Follow up: Response: No adverse reaction hb 10:00 Drug: Albuterol HFA Inhaler 2 puffs Route: Inhalation; aa5 10:10 Drug: NS 0.9% 500 ml Route: IV; Rate: bolus; Site: right antecubital; aa5 11:00 Follow up: IV Status: Completed infusion; IV Intake: 500ml aa5 10:31 Drug: Zofran (Ondansetron) 4 mg Route: IVP; Site: right antecubital; aa5 10:50 Follow up: Response: No adverse reaction; Nausea is decreased aa5 Disposition: 18:15 Co-signature as Attending Physician, Ervin Hernandez MD. rn Disposition Summary: 12/29/20 11:11 Hospitalization Ordered Hospitalization Status: Inpatient Admission cp Provider: Hernan Carlos cp Condition: Stable cp Problem: new cp Symptoms: have improved cp Bed/Room Type: Standard cp Location: Intensive Care Unit(12/29/20 16:16) dw Room Assignment: 3-(12/29/20 16:16) dw Diagnosis - Other viral pneumonia cp - Hypoxemia cp Forms: - Medication Reconciliation Form cp - SBAR form cp Signatures: Dispatcher [employer] EDMS Grecia Bryant Diana, RN RN dw Ervin Hernandez MD MD rn Calderon, Audri, RN RN aa5 Umair Marie PA PA cp Baxter, Heather, RN RN hb Corrections: (The following items were deleted from the chart) 11:15 10:49 CORONAVIRUS+MR.LAB.BRZ ordered. EDMS EDMS 12:58 09:55 Social history: Smoking status: Patient denies any tobacco usage or history of. hbaa5 15:19 11:11 Telemetry/MedSurg (Inpatient) cp aa5 15:19 11:11 cp aa5 16:14 15:19 [facility] ER HOLD aa5 bd 16:14 15:19 ERHOLD- aa5 bd 16:16 16:14 Intensive Care Unit bd dw 16:16 16:14 3- bd dw
--- NOTE | 2020-12-29 11:11 | ER ---
Nurse's Notes [facility] Name: Davidson Pop Age: 70 yrs Sex: Male : 1950 Arrival Date: 12/29/2020 Time: 09:16 Bed 6 Private MD: Diagnosis: Other viral pneumonia;Hypoxemia Presentation: 12/29 09:16 Chief complaint: EMS states: Diagnosed with COVID-19 approximately 8 days ago, was seen aa5 at [facility] yesterday and given "IV therapy for COVID". Pt reports fever up to 101.4*F at home, cough, and SOB. EMS reports pt was 88% RA and up to 96% 4 L NC, BP upon scene arrival was 81/30 and up to 96/60 just [employer]NAGER [employer]. 09:16 Coronavirus screen: Client reports previous positive COVID test result. Ebola Screen: aa5 Patient negative for fever greater than or equal to 101.5 degrees Fahrenheit, and additional compatible Ebola Virus Disease symptoms. Initial Sepsis Screen: Does the patient meet any 2 criteria? No. Patient's initial sepsis screen is negative. Does the patient have a suspected source of infection? Yes:. Risk Assessment: Do you want to hurt yourself or someone else? Patient reports no desire to harm self or others. Onset of symptoms was 2020. 09:16 Acuity: MIA 3 aa5 09:16 Method Of Arrival: EMS: [facility] aa5 Historical: - Allergies: 09:16 Cephalexin; aa5 - Home Meds: 09:55 fluticasone 50 mcg/actuation nasal spsn 1 spray 2 times per day [Active]; levothyroxine hb 100 mcg tab 1 tab once daily [Active]; Singulair 10 mg Oral tab 1 tab once daily [Active]; tramadol 50 mg Oral tab as needed [Active]; aspirin 81 mg Oral tab [Active]; Prilosec 40 mg Oral cpDR 1 cap once daily [Active]; torsemide 20 mg Oral tab 1 tab once daily [Active]; fenofibrate 160 mg oral tab 1 tab once daily [Active]; allopurinol 300 mg Oral tab 1 tab once daily [Active]; - PMHx: 09:16 Hypothyroidism; squamous cell carcinoma; aa5 09:16 Hypertensive disorder; Gout; aa5 09:20 Asthma; aa5 - PSHx: 09:16 Heart Bypass; aa5 - Immunization history:: Adult Immunizations up to date, Client reports having NOT received the Covid vaccine. - Social history:: Smoking status: Patient/guardian denies using tobacco, the patient reports quitting approximately 19 years ago. Screenin:40 Abuse screen: Denies threats or abuse. Denies injuries from another. Nutritional hb screening: No deficits noted. Tuberculosis screening: No symptoms or risk factors identified. Fall Risk None identified. Assessment: 09:18 General: Appears comfortable, Behavior is calm, cooperative. Pain: Complains of pain in aa5 head Pain currently is 8 out of 10 on a pain scale. Quality of pain is described as aching, Is intermittent. Neuro: Level of Consciousness is awake, alert, obeys commands, Oriented to person, place, time, situation, Reports headache. Cardiovascular: Heart tones S1 S2 present Rhythm is sinus rhythm. Respiratory: Reports shortness of breath cough that is productive, Airway is patent Respiratory effort is even, unlabored, Respiratory pattern is regular, symmetrical, Breath sounds are diminished bilaterally. GI: Abdomen is round. : No signs and/or symptoms were reported regarding the genitourinary system. EENT: No signs and/or symptoms were reported regarding the EENT system. Derm: Skin is pink, warm \\T\\ dry. Musculoskeletal: Range of motion: intact in all extremities. 10:00 Reassessment: Patient is alert, oriented x 3, equal unlabored respirations, skin aa5 warm/dry/pink. Pt sitting up in bed. Pt c/o nausea at this time, PA was notified. Pt currently denies SOB, states feeling better. . 10:17 Reassessment: Patient appears in no apparent distress at this time. Patient and/or hb family updated on plan of care and expected duration. Pain level reassessed. Patient is alert, oriented x 3, equal unlabored respirations, skin warm/dry/pink. 11:00 Reassessment: Patient is alert, oriented x 3, equal unlabored respirations, skin aa5 warm/dry/pink. Pt sitting up in bed, states no complaints at this time. . 12:20 Reassessment: Patient is alert, oriented x 3, equal unlabored respirations, skin aa5 warm/dry/pink. Pt moved from ER stretcher to hospital bed, pt remains in ER Room 6. . 12:27 Reassessment: Patient is alert, oriented x 3, equal unlabored respirations, skin aa5 warm/dry/pink. Awaiting admission orders by Dr. Carlos to be able to make pt an ERHOLD (no COVID beds available at this time), pt was notified and Dr. Carlos notified of need for orders. . 13:40 Reassessment: Patient is alert, oriented x 3, equal unlabored respirations, skin aa5 warm/dry/pink. Pt given lunch tray, pt tolerating well. . 14:10 Reassessment: Patient is alert, oriented x 3, equal unlabored respirations, skin aa5 warm/dry/pink. Awaiting admission orders . 16:00 Reassessment: Pt resting in bed with eyes closed, respirations are even and unlabored, aa5 skin is pink/warm/dry. . 17:00 Reassessment: Patient is alert, oriented x 3, equal unlabored respirations, skin aa5 warm/dry/pink. Vital Signs: 09:16 BP 112 / 75; Pulse 90; Resp 18 S; Temp 98.0(O); Pulse Ox 100% on 4 lpm NC; aa5 09:31 Pulse Ox 89% on R/A; hb 09:33 Pulse Ox 95% on 2 lpm NC; aa5 10:14 BP 102 / 66; Pulse 87; Resp 17 S; Temp 98.9(O); Pulse Ox 96% on 2 lpm NC; aa5 12:00 BP 107 / 84; Pulse 82; Resp 18 S; Pulse Ox 98% on 2 lpm NC; aa5 16:00 BP 119 / 76; Pulse 84; Resp 16 S; Pulse Ox 97% on 2 lpm NC; aa5 ED Course: 09:16 Patient arrived in ED. am2 09:16 Arm band placed on. aa5 09:20 Umair Marie PA is PHCP. cp 09:20 Ervin Hernandez MD is Attending Physician. cp 09:22 Triage completed. aa5 09:25 Angeli Muro, HÉCTOR is Primary Nurse. aa5 09:33 XRAY Chest (1 view) In Process Unspecified. EDMS 09:40 Patient has correct armband on for positive identification. Bed in low position. Call hb light in reach. 09:40 Ferritin Sent. hb 09:40 CRP Sent. hb 09:40 Inserted saline lock: 20 gauge in right antecubital area, using aseptic technique. hb Blood collected. 11:10 Hernan Carlos MD is Hospitalizing Provider. cp 17:00 No provider procedures requiring assistance completed. Patient admitted, IV remains in aa5 place. Administered Medications: 09:40 Drug: SOLU-Medrol (methylPrednisoLONE) 80 mg Route: IVP; Site: right antecubital; hb 10:13 Follow up: Response: No adverse reaction hb 10:00 Drug: Albuterol HFA Inhaler 2 puffs Route: Inhalation; aa5 10:10 Drug: NS 0.9% 500 ml Route: IV; Rate: bolus; Site: right antecubital; aa5 11:00 Follow up: IV Status: Completed infusion; IV Intake: 500ml aa5 10:31 Drug: Zofran (Ondansetron) 4 mg Route: IVP; Site: right antecubital; aa5 10:50 Follow up: Response: No adverse reaction; Nausea is decreased aa5 Intake: 11:00 IV: 500ml; Total: 500ml. aa5 Output: 12:20 Urine: 300ml (Voided); Total: 300ml. aa5 Outcome: 11:11 Decision to Hospitalize by Provider. cp 17:04 Admitted to accompanied by tech, via wheelchair, with oxygen, with chart, Report called aa5 to Tiffany. Admitted to [facility] ICU unit. 17:04 Condition: stable 17:04 Discharge instructions given to patient, Instructed on the need for admit, Demonstrated understanding of instructions. 17:08 Patient left the ED. aa5 Signatures: Dispatcher [employer] EDMS Angeli Muro RN RN aa5 Umair Marie PA PA cp Baxter, Heather, RN RN hb Swetha Elizabeth am2 Corrections: (The following items were deleted from the chart) 09:19 09:19 Arm band placed on aa5 aa5 10:34 10:00 Reassessment: Patient is alert, oriented x 3, equal unlabored respirations, skin aa5 warm/dry/pink. Pt sitting up in bed. Pt c/o nausea at this time, PA was notified. . aa5 12:58 09:55 Social history: Smoking status: Patient denies any tobacco usage or history of. hbaa5
[2020-12-29] MEDS ORDERED: ONDANSETRON 4 MG/2 ML VIAL IV PRN (14:24)
[2020-12-29] MEDS ORDERED: MORPHINE 2 MG/ML SYR IV PRN (14:24)
[2020-12-29] MEDS ORDERED: ACETAMINOPHEN 500 MG TAB PO PRN (14:24)
[2020-12-29] MEDS ORDERED: ALBUTEROL INHALER 60 PUFF/8 GM IH PRN (14:27)
[2020-12-29] MEDS ORDERED: BENZONATATE 100 MG CAP PO PRN (14:27)
[2020-12-29] MEDS ORDERED: IVERMECTIN 3 MG TABLET PO SCH (16:00)
--- NOTE | 2020-12-29 17:45 | P.HP ---
Certification for Inpatient Patient admitted to: Inpatient With expected LOS: >2 Midnights Patient will require the following post-hospital care: None Practitioner: I am a practitioner with admitting privileges, knowledge of patient current condition, hospital course, and medical plan of care. Services: Services provided to patient in accordance with Admission requirements found in Title 42 Section 412.3 of the Code of Federal Regulations Patient History Date of Service: 12/29/20 Reason for admission: COVID-19 pneumonia History of Present Illness: Patient is a 70-year-old gentleman came to the hospital with difficulty breathing and fever. Patient had been diagnosed with COVID-19 a few days prior. Patient had gone to [facility] and he was scheduled for monoclonal antibodies which she received yesterday. Overnite he started running a fever of 101. He got a little more short of breath. He decided come into the emergency room for further evaluation. In the emergency room patient was found have bilateral pneumonia. Patient was also slightly hypoxic at 86% and requiring 3 L of oxygen to maintain his oxygen saturations appropriately. At this time, patient be admitted to the hospital for further evaluation. Allergies cephalexin Allergy (Verified 08/19/16 22:06) Itching/Hives/Rash Home Medications: Levothyroxine Sodium 100 mcg PO DAILY 08/20/16 Montelukast [Singulair] 10 mg PO DAILY 08/20/16 Omeprazole [Prilosec] 40 mg PO DAILY 08/20/16 Torsemide 20 mg PO DAILY 08/20/16 Albuterol Inhaler [Ventolin Inhaler*] 1 puff IN DAILY 08/02/18 Metoprolol Succinate 25 mg PO BID 08/02/18 Fenofibrate 160 mg PO DAILY 08/04/18 - Past Medical/Surgical History Diabetic: No -: triple bypass -: high cholesterol -: squamah cell carcinoma -: hypertension -: back surgery -: chelcystectomy -: hernia repair Left and Right -: rotator cough surgery Left - Family History Father Family History: Reviewed- Non-Contributory - Social History Alcohol use: Yes CD- Drugs: No Caffeine use: Yes Review of Systems 10-point ROS is otherwise unremarkable Physical Examination - Vital Signs Temperature: 98 F Blood Pressure: 120/80 Pulse: 88 Respirations: 18 Pulse Ox (%): 95 - Physical Exam General: Alert, In no apparent distress, Oriented x3 HEENT: Atraumatic, PERRLA, Mucous membr. moist/pink, EOMI, Sclerae nonicteric Neck: Supple, 2+ carotid pulse no bruit, No LAD, Without JVD or thyroid abnormality Respiratory: Diminished Cardiovascular: Regular rate/rhythm, Normal S1 S2, No murmurs Gastrointestinal: Normal bowel sounds, Soft and benign, Non-distended, No tenderness Musculoskeletal: No clubbing, No swelling, No tenderness Integumentary: No rashes Neurological: Normal gait, Normal speech, Normal strength at 5/5 x4 extr, Normal tone, Sensation intact, Cranial nerves 3-12 intact, Normal affect Lymphatics: No axilla or inguinal lymphadenopathy - Studies Laboratory Data (last 24 hrs) 12/29/20 09:37: PT 10.9, INR 0.95 12/29/20 09:37: WBC 6.60, Hgb 13.9, Hct 42.3, Plt Count 130 L 12/29/20 09:37: Sodium 139, Potassium 3.7, BUN 25 H, Creatinine 1.75 H, Glucose 112 H, Magnesium 1.9, Total Bilirubin 0.4, AST 62 H, ALT 56, Alkaline Phosphatase 42 L Assessment & Plan - Problems (Diagnosis) (1) Pneumonia due to COVID-19 virus Current Visit: Yes Status: Acute (2) Hypoxemia Current Visit: Yes Status: Acute - Plan 1. Continue with IV steroids 2. Monitor inflammatory markers 3. Repeat chest x-ray is symptoms are progressively worsening 4. O2 per protocol 5. Pulmonary consultation 6. Continue with albuterol inhaler therapy; also supportive care 7. Monitor LFTs 8. GI and DVT prophylaxis Discharge Plan: Home Plan to discharge in: Greater than 2 days - Advance Directives Does patient have a Living Will: No Does patient have a Durable POA for Healthcare: Yes - Code Status/Comfort Care Code Status Assessed: Yes Code Status: Full Code Critical Care: No Time Spent Managing PTS Care (In Minutes): 45
[2020-12-29 18:22] VITALS: BMI 31.6
[2020-12-29 21:23] VITALS: O2SAT 95
[2020-12-29] MEDS: APIXABAN 5 MG TABLET PO SCH (21:30)
[2020-12-29] MEDS: METHYLPREDNISOLONE 40 MG INJ IV SCH (21:30)
[2020-12-30 05:57] LABS: Absolute Lymphocytes (CBC) 0.5 K/uL (0.7-4.9); Hematocrit 40.2 % (39.6-49.0); Lymphocytes % 10.7 % (15.3-44.8); MPV 9.5 fL (7.6-11.3); RBC Red Blood Cell Count 4.34 M/uL (4.33-5.43)
[2020-12-30 06:16] LABS: Bilirubin Total 0.3 mg/dL (0.2-1.0); Ferritin 902.7 ng/mL (26-388); Potassium 3.8 mmol/L (3.5-5.1); Protein, Total 6.6 g/dL (6.4-8.2)
--- NOTE | 2020-12-30 07:31 | EKG ---
Test Date: 2020-12-29 Test Time: 09:24:31 Commercial Helicopter Pilot: KAILYN MEASUREMENT RESULTS: Intervals: Rate: 90 SD: 156 QRSD: 96 QT: 370 QTc: 452 [place]: P: -2 SD: 156 QRS: -48 T: 18 INTERPRETIVE STATEMENTS: Normal sinus rhythm Left anterior fascicular block Moderate voltage criteria for LVH, may be normal variant T wave abnormality, consider lateral ischemia Abnormal ECG Compared to ECG 08/08/2018 14:34:21 T-wave abnormality now present Possible ischemia now present Early repolarization no longer present Electronically Signed On 12-30-20 07:28:34 CDT by Yaron Chowdary
[2020-12-30 08:00] LABS: Blood Morphology Comment NOT SEEN (NOT SEEN); Platelet Estimate ADEQ; White Blood Cell Scan OK (OK)
[2020-12-30] MEDS: APIXABAN 5 MG TABLET PO SCH (08:52)
[2020-12-30] MEDS: METHYLPREDNISOLONE 40 MG INJ IV SCH (08:52)
[2020-12-30] MEDS ORDERED: ASPIRIN EC 81 MG TAB PO SCH (09:00)
--- NOTE | 2020-12-30 09:05 | P.CNS ---
Date of Consult: 12/30/20 (TP consented to TV) Reason for Consult: COVID penumonia Chief Complaint: COVID-19 pneumonia History of Present Illness: AGe 70 AW COVID penumonia, Goit monoclonal AB/ Pt hypoxic doign much better on NC Allergies cephalexin Allergy (Verified 08/19/16 22:06) Itching/Hives/Rash Home Medications: Levothyroxine Sodium 100 mcg PO DAILY 08/20/16 Montelukast [Singulair] 10 mg PO DAILY 08/20/16 Omeprazole [Prilosec] 40 mg PO DAILY 08/20/16 Torsemide 20 mg PO DAILY 08/20/16 Albuterol Inhaler [Ventolin Inhaler*] 2 puff IN BID 08/02/18 Metoprolol Succinate 12.5 mg PO BID 08/02/18 Fenofibrate 160 mg PO DAILY 08/04/18 Allopurinol 300 mg PO DAILY 12/29/20 Aspirin 81 mg PO DAILY 12/29/20 Fluticasone [Flonase 50mcg Nasal [place]] 2 sprays NS DAILY 12/29/20 Tamsulosin [Flomax] 0.4 mg PO BEDTIME 12/29/20 Tramadol HCl [Ultram] 50 mg PO Q6HP PRN 12/29/20 - Past Medical/Surgical History Diabetic: No -: triple bypass -: high cholesterol -: squamah cell carcinoma -: hypertension -: gout -: hypothyroidism -: back surgery -: chelcystectomy -: hernia repair Left and Right -: rotator cough surgery Left - Family History Father Family History: Reviewed- Non-Contributory - Social History Alcohol use: Yes CD- Drugs: No Caffeine use: Yes Place of Residence: Home Review of Systems General: Weakness Respiratory: Shortness of Breath Physical Examination Temp Pulse Resp BP Pulse Ox 97.5 F 71 24 H 109/68 95 12/30/20 04:00 12/30/20 04:00 12/30/20 00:00 12/30/20 04:00 12/30/20 04:00 General: Alert, In no apparent distress, Oriented x3 Laboratory Data (last 24 hrs) 12/29/20 09:37: PT 10.9, INR 0.95 12/29/20 09:37: WBC 6.60, Hgb 13.9, Hct 42.3, Plt Count 130 L 07/28/21 09:37: Sodium 139, Potassium 3.7, BUN 25 H, Creatinine 1.75 H, Glucose 112 H, Magnesium 1.9, Total Bilirubin 0.4, AST 62 H, ALT 56, Alkaline Phosphatase 42 L - Problems (1) Pneumonia due to COVID-19 virus Current Visit: Yes Status: Acute Plan: AW COVID penumonia. LABs and CT rev/ S/p monoclonalAB. Labs reviewed/ CXRYminimal ILD/ Barcitinib/ steroids and iveremctin/ CRFposs DC am/ Asprin
[2020-12-30 14:44] VITALS: BP 102/63
[2020-12-30 17:47] VITALS: TEMP 98.4
--- NOTE | 2021-01-03 12:32 | P.DS ---
Discharge Date: 12/30/20 Disposition: ROUTINE DISCHARGE Discharge Condition: GOOD Reason for Admission: COVID-19 pneumonia - Problems (1) Pneumonia due to COVID-19 virus Status: Acute (2) Hypoxemia Status: Acute Brief History of Present Illness: Patient is a 70-year-old gentleman came to the hospital with difficulty breathing and fever. Patient had been diagnosed with COVID-19 a few days prior. Patient had gone to [facility] and he was scheduled for monoclonal antibodies which she received yesterday. Overnite he started running a fever of 101. He got a little more short of breath. He decided come into the emergency room for further evaluation. In the emergency room patient was found have bilateral pneumonia. Patient was also slightly hypoxic at 86% and requiring 3 L of oxygen to maintain his oxygen saturations appropriately. At this time, patient be admitted to the hospital for further evaluation. Hospital Course: Patient is doing well on room air oxygen. Patient's clinical symptoms are stable. At this time, patient is stable for discharge home. Vital Signs/Physical Exam: Temp Pulse Resp BP Pulse Ox 98.4 F 73 20 102/63 95 12/30/20 16:00 12/30/20 12:00 12/30/20 12:00 12/30/20 12:00 12/30/20 12:00 General: Alert, In no apparent distress, Oriented x3 Laboratory Data at Discharge: WBC 4.80 K/uL (4.3-10.9) D 12/30/20 05:19 Hgb 13.3 g/dL (13.6-17.9) L 12/30/20 05:19 Hct 40.2 % (39.6-49.0) 12/30/20 05:19 Plt Count 146 K/uL (152-406) L 12/30/20 05:19 PT 10.9 SECONDS (9.5-12.5) 12/29/20 09:37 INR 0.95 12/29/20 09:37 Sodium 138 mmol/L (136-145) 12/30/20 05:19 Potassium 3.8 mmol/L (3.5-5.1) 12/30/20 05:19 BUN 23 mg/dL (7-18) H 12/30/20 05:19 Creatinine 1.40 mg/dL (0.55-1.3) H 12/30/20 05:19 Glucose 202 mg/dL (74-106) H 12/30/20 05:19 Magnesium 1.9 mg/dL (1.8-2.4) 12/29/20 09:37 Total Bilirubin 0.3 mg/dL (0.2-1.0) 12/30/20 05:19 AST 36 U/L (15-37) 12/30/20 05:19 ALT 48 U/L (12-78) 12/30/20 05:19 Alkaline Phosphatase 39 U/L (45-117) L 12/30/20 05:19 Home Medications: Levothyroxine Sodium 100 mcg PO DAILY 08/20/16 Montelukast [Singulair*] 10 mg PO DAILY 08/20/16 Omeprazole [Prilosec] 40 mg PO DAILY 08/20/16 Torsemide 20 mg PO DAILY 08/20/16 Albuterol Inhaler [Ventolin Inhaler*] 2 puff IN BID 08/02/18 Metoprolol Succinate 12.5 mg PO BID 08/02/18 Fenofibrate 160 mg PO DAILY 08/04/18 Allopurinol 300 mg PO DAILY 12/29/20 Aspirin 81 mg PO DAILY 12/29/20 Fluticasone [Flonase 50MCG Nasal [place]*] 2 sprays NS DAILY 12/29/20 Tamsulosin [Flomax*] 0.4 mg PO BEDTIME 12/29/20 Tramadol HCl [Ultram] 50 mg PO Q6HP PRN 12/29/20 Apixaban [Eliquis] 5 mg PO BID #20 tablet 12/30/20 Benzonatate [Tessalon Perle*] 200 mg PO TID PRN #30 cap 12/30/20 Ivermectin 15 mg PO Q48H #10 tablet 12/30/20 predniSONE [Prednisone*] 20 mg PO BID #21 tab 12/30/20 New Medications: Apixaban [Eliquis] 5 mg PO BID #20 tablet Ivermectin 15 mg PO Q48H #10 tablet predniSONE [Prednisone*] 20 mg PO BID #21 tab Benzonatate [Tessalon Perle*] 200 mg PO TID PRN #30 cap PRN Reason: Cough Diet: AHA Activity: Fall precautions Followup: Deejay Whiteside MD [ACTIVE - CAN ADMIT] - Armando Quiros MD [Primary Care Provider] - Time spent managing pt's care (in minutes): 35
== END 2020-12-30 17:53 | disposition home or self-care (01) | DRG 177 ==
LOC: ER 09:16 → ERHOLD 14:25 → 3RD-ICU 16:55
PROVIDERS: ADMIT Hospitalist; ATTEND Hospitalist
DX: U07.1 COVID-19 (principal); J12.82 Pneumonia due to coronavirus disease 2019; J96.01 Acute respiratory failure with hypoxia; M10.9 Gout, unspecified; I10 Essential (primary) hypertension; J45.909 Unspecified asthma, uncomplicated; E03.9 Hypothyroidism, unspecified; Z88.1 Allergy status to other antibiotic agents; Z79.890 Hormone replacement therapy; Z79.82 Long term (current) use of aspirin; Z79.899 Other long term (current) drug therapy; Z95.1 Presence of aortocoronary bypass graft; Z87.891 Personal history of nicotine dependence; Z90.49 Acquired absence of other specified parts of digestive tract; Z79.52 Long term (current) use of systemic steroids; Z79.01 Long term (current) use of anticoagulants
CPT/HCPCS: 36415; 71045; 80048; 80053; 80076; 82728; 83735; 83880; 84484; 85025; 85379; 85610; 86140; 87070; 87205; 93005; 96361; 96374; 96375; 99285; J2405; J2920; J2930; J7040

== ENCOUNTER 2022-08-22 13:40 | Inpatient (IN) | payer OTHER ==
[2022-08-22 14:48] LABS: Absolute Lymphocytes (CBC) 1.5 K/uL (0.7-4.9); Lymphocytes % 20.6 % (15.3-44.8); MCV 93.1 fL (80-100); MPV 9.7 fL (7.6-11.3); RBC Red Blood Cell Count 4.63 M/uL (4.33-5.43)
[2022-08-22 14:53] LABS: Protime INR 0.91
[2022-08-22 15:32] LABS: BUN Blood Urea Nitrogen 22 mg/dL (7-18); Bicarbonate 31 mEq/L (21-32); Glucose Level 106 mg/dL (74-106); Sodium Level 139 mEq/L (136-145)
[2022-08-22 15:33] LABS: ALT/SGPT 30 U/L (16-61); AST/SGOT 26 U/L (15-37); Alkaline Phosphatase 34 U/L (45-117); Bilirubin Direct < 0.1 mg/dL (0-0.2); Bilirubin Total 0.3 mg/dL (0.2-1.0); Glomerular Filtration Rate 41 ml/min (=/>90); Protein, Total 7.2 g/dL (6.4-8.2)
[2022-08-22 15:34] LABS: NT PRO-BNP 3055 pg/mL (<125)
[2022-08-22 15:35] LABS: Troponin High Sensitivity 68.8 (<58.9)
--- NOTE | 2022-08-22 16:00 | RAD REPORT ---
EXAM DESCRIPTION: RAD - Chest Single View - 08/22/2022 3:47 pm CLINICAL HISTORY: DYSPNEA Chest pain. COMPARISON: <Comparisons> FINDINGS: Portable technique limits examination quality. Mild interstitial pulmonary edema. The heart is normal in size. Sternotomy wires. IMPRESSION: Mild CHF.
[2022-08-22] MEDS ORDERED: LEVALBUTEROL 1.25 MG/3 ML NEB ONE (16:13)
[2022-08-22] MEDS ORDERED: HYDROCODONE/APAP 5/325 MG TAB ONE (16:17)
--- NOTE | 2022-08-22 16:24 | ER ---
Nurse's Notes [facility] Name: Davidson Pop Age: 72 yrs Sex: Male : 1950 Arrival Date: 08/22/2022 Time: 13:42 Bed 23 Private MD: Diagnosis: Unspecified combined systolic (congestive) and diastolic (congestive) heart failure;Acute pulmonary edema;Dyspnea, unspecified Presentation: 08/22 14:02 Chief complaint: EMS states: "Difficulty breathing, getting worse over the past week. tw5 He does have pitting edema in bilateral legs. He is unsure if he has a history of CHF, but he does take a diuretic to keep the fluid off.". Coronavirus screen: Vaccine status: Patient reports being unvaccinated. Ebola Screen: Patient negative for fever greater than or equal to 101.5 degrees Fahrenheit, and additional compatible Ebola Virus Disease symptoms Patient denies exposure to infectious person. Patient denies travel to an Ebola-affected area in the 21 days before illness onset. Initial Sepsis Screen: Does the patient meet any 2 criteria? No. Patient's initial sepsis screen is negative. Does the patient have a suspected source of infection? No. Patient's initial sepsis screen is negative. Risk Assessment: Do you want to hurt yourself or someone else? Patient reports no desire to harm self or others. Onset of symptoms is unknown. 14:02 Method Of Arrival: EMS: [facility] tw5 14:02 Acuity: MIA 2 tw5 Triage Assessment: 14:05 General: Appears in no apparent distress. Behavior is calm, cooperative, appropriate tw5 for age. Pain: Denies pain. Respiratory: Reports shortness of breath at rest Onset: The symptoms/episode began/occurred at an unknown time. the patient has mild shortness of breath. Historical: - Allergies: 14:05 Cephalexin; tw5 - PMHx: 14:05 Asthma; squamous cell carcinoma; Hypothyroidism; Hypertensive disorder; Gout; Chronic tw5 back pain; - PSHx: 14:05 heart bypass; Cholecystectomy; tw5 - Immunization history:: Flu vaccine is up to date. - Social history:: Smoking status: Patient/guardian denies using tobacco, the patient reports quitting approximately 14 years ago. - Family history:: not pertinent. - Hospitalizations: : No recent hospitalization is reported. Screenin:07 [facility] ED Fall Risk Assessment (Adult) History of falling in the last 3 months, tw5 including since admission No falls in past 3 months (0 pts). Abuse screen: Denies threats or abuse. Denies injuries from another. Nutritional screening: No deficits noted. Tuberculosis screening: No symptoms or risk factors identified. Assessment: 14:01 General: Reports "My breathing, the short of breath has been coming on for a few days tw5 now, but it has just gotten worse.". 14:37 Respiratory: Airway is patent Trachea midline Respiratory effort is even, unlabored, tw5 Respiratory pattern is tachypnea. 16:15 Reassessment: Patient appears in no apparent distress at this time. No changes from tw5 previously documented assessment. Patient and/or family updated on plan of care and expected duration. Pain level reassessed. General: Appears in no apparent distress. Behavior is calm, cooperative. General: Reports "I am not really feeling much shortness of breath, but that might be because I have only been sitting here.". Pain: Complains of pain in low back area Pain currently is 7 out of 10 on a pain scale. 18:10 Cardiovascular: Rhythm is sinus rhythm. Respiratory: Breath sounds are diminished. tw5 Vital Signs: 14:02 BP 116 / 76; Pulse 81; Resp 19; Temp 98.3; Pulse Ox 95% on R/A; Weight 99.79 kg; Height tw5 5 ft. 9 in. ; Pain 0/10; 14:37 BP 105 / 70; Pulse 81; Resp 22; Pulse Ox 94% on R/A; tw5 16:18 BP 115 / 71; Pulse 72; Resp 18; Pulse Ox 98% on R/A; tw5 16:34 BP 107 / 70; Pulse 74; Resp 20; Pulse Ox 93% on R/A; Pain 6/10; tw5 17:07 BP 109 / 70; Pulse 73; Resp 14; Pulse Ox 95% on R/A; tw5 18:11 BP 114 / 77; Pulse 93; Resp 18; Pulse Ox 92% on R/A; tw5 14:02 Body Mass Index 32.49 (99.79 kg, 175.26 cm) tw5 14:02 Pain Scale: Adult tw5 16:34 Pain Scale: Adult tw5 ED Course: 13:42 Patient arrived in ED. rn 13:42 Ervin Hernandez MD is Attending Physician. rn 14:01 Mary Espinosa is Primary Nurse. tw5 14:05 Triage completed. tw5 14:05 Arm band placed on. tw5 14:07 Placed in gown. Bed in low position. Call light in reach. Side rails up X2. Adult w/ tw5 patient. Client placed on continuous cardiac and pulse oximetry monitoring. NIBP monitoring applied. Door closed. Noise minimized. Lights dimmed. Warm blanket given. Verbal reassurance given. 14:07 Maintain EMS IV. Dressing intact. Good blood return noted. Site clean \\T\\ dry. Gauge \\T\\ tw 5 site: 20 LAC. 14:37 Inserted saline lock: 20 gauge in right antecubital area, using aseptic technique. tw5 Blood collected. 14:37 Initial lab(s) drawn, First set of blood cultures drawn by me. tw5 14:38 BMP Sent. tw5 14:38 CBC with Diff Sent. tw5 14:38 Hepatic Function Sent. tw5 14:38 NT PRO-BNP Sent. tw5 14:38 PT-INR Sent. tw5 14:38 Ptt, Activated Sent. tw5 14:38 Troponin HS Sent. tw5 14:44 Radiology exam delayed due to lab results not completed at this time. (BUN/Creatinine). jg10 15:49 XRAY CXR (1 view) In Process Unspecified. EDMS 16:04 Blood Culture Adult (2) Sent. tw5 16:15 SARS RAPID Sent. tw5 16:22 Armando Quiros MD is Hospitalizing Provider. rn 16:33 SARS RAPID Sent. tw5 18:10 No provider procedures requiring assistance completed. Patient admitted, IV remains in tw5 place. Administered Medications: 16:15 Drug: HYDROcodone-acetaminophen PO 5 mg-325 mg 1 tabs Route: PO; tw5 16:41 Follow up: Response: No adverse reaction; Pain is decreased; RASS: Alert and Calm (0) tw5 16:19 Drug: Levalbuterol Inhalation 1.25 mg Route: Inhalation; tw5 16:33 Follow up: Response: No adverse reaction tw5 16:41 Drug: Furosemide IVP 20 mg Route: IVP; Site: right antecubital; tw5 17:58 Follow up: Response: No adverse reaction tw5 Medication: 14:07 VIS not applicable for this client. tw5 Intake: 18:11 PO: 100ml; Total: 100ml. tw5 Output: 18:11 Urine: 375ml; Total: 375ml. tw5 Outcome: 16:23 Decision to Hospitalize by Provider. rn 18:11 Admitted to Med/surg room 220, Report called to Kristen Garnett RN tw5 18:11 Condition: good 18:11 Instructed on the need for admit. 18:23 Patient left the ED. db Signatures: Dispatcher [employer] EDErvin Soto MD MD rn Wood, Tiffany tw5 Jen Navarro RN RN db Galvan, Juliet jg10
--- NOTE | 2022-08-22 16:24 | EDPHYS ---
Physician Documentation [facility] Name: Davidson Pop Age: 72 yrs Sex: Male : 1950 Arrival Date: 08/22/2022 Time: 13:42 Bed 23 Private MD: ED Physician Ervin Hernandez HPI: 08/22 14:00 This 72 yrs old Male presents to ER via Unassigned with complaints of sob. rn 14:00 The patient has shortness of breath with light activity. Onset: The symptoms/episode rn began/occurred 1 week(s) ago. Duration: The symptoms are continuous. The patient's shortness of breath is aggravated by exertion, light activity, supine position, walking, is alleviated by rest, sitting up. Associated signs and symptoms: Pertinent positives: productive cough, Pertinent negatives: fever, hemoptysis. Severity of symptoms: At their worst the symptoms were moderate in the emergency department the symptoms are unchanged. The patient has experienced similar episodes in the past. The patient has not recently seen a physician. 14:00 Pt reports progressively worsening dyspnea on exertion, + cough, no fever, does not rn feel ill, + smoking history and on diuretics. . Historical: - Allergies: 14:05 Cephalexin; tw5 - PMHx: 14:05 Asthma; squamous cell carcinoma; Hypothyroidism; Hypertensive disorder; Gout; Chronic tw5 back pain; - PSHx: 14:05 heart bypass; Cholecystectomy; tw5 - Immunization history:: Flu vaccine is up to date. - Social history:: Smoking status: Patient/guardian denies using tobacco, the patient reports quitting approximately 14 years ago. - Family history:: not pertinent. - Hospitalizations: : No recent hospitalization is reported. ROS: 14:00 Constitutional: Negative for fever, chills, and weight loss, Eyes: Negative for injury, rn pain, redness, and discharge, Neck: Negative for injury, pain, and swelling, Cardiovascular: Negative for chest pain, palpitations, + chronic lower ext swelling Respiratory: + sob and cough Abdomen/GI: Negative for abdominal pain, nausea, vomiting, diarrhea, and constipation, Back: Negative for injury and pain, MS/Extremity: Negative for injury and deformity, Skin: Negative for injury, rash, and discoloration, Neuro: Negative for headache, weakness, numbness, tingling, and seizure. Exam: 14:00 Constitutional: This is a well developed, well nourished patient who is awake, alert, rn and in no acute distress. Head/Face: Normocephalic, atraumatic. ENT: No stridor Cardiovascular: Regular rate and rhythm. No pulse deficits. Respiratory: + mild tachypnea, diminished at bases Abdomen/GI: soft, non-tender Skin: Warm, dry MS/ Extremity: Pulses equal, no cyanosis. Neurovascular intact. Full, normal range of motion. LLE greater circumference than RLE (stable and no changes since bypass grafting) Neuro: Awake and alert, GCS 15 14:21 ECG was reviewed by the Attending Physician. rn Vital Signs: 14:02 BP 116 / 76; Pulse 81; Resp 19; Temp 98.3; Pulse Ox 95% on R/A; Weight 99.79 kg; Height tw5 5 ft. 9 in. ; Pain 0/10; 14:37 BP 105 / 70; Pulse 81; Resp 22; Pulse Ox 94% on R/A; tw5 16:18 BP 115 / 71; Pulse 72; Resp 18; Pulse Ox 98% on R/A; tw5 16:34 BP 107 / 70; Pulse 74; Resp 20; Pulse Ox 93% on R/A; Pain 6/10; tw5 17:07 BP 109 / 70; Pulse 73; Resp 14; Pulse Ox 95% on R/A; tw5 18:11 BP 114 / 77; Pulse 93; Resp 18; Pulse Ox 92% on R/A; tw5 14:02 Body Mass Index 32.49 (99.79 kg, 175.26 cm) tw5 14:02 Pain Scale: Adult tw5 16:34 Pain Scale: Adult tw5 MDM: 13:43 Patient medically screened. rn 16:14 Differential diagnosis: Anemia CHF exacerbation, Chronic Obstructive Pulmonary Disease rn Myocardial Infarction pneumonia, Pneumothorax pulmonary edema, Pulmonary Embolism. Antibiotic administration: Not indicated. Data reviewed: vital signs, nurses notes. Data reviewed: lab test result(s), EKG, radiologic studies, and as a result, I will admit patient. Consideration of Admission/Observation Patient was admitted/placed on observation. Escalation of care including admission/observation considered. I considered the following discharge prescriptions or medication management in the emergency department Medications were administered in the Emergency Department. See MAR. Independent interpretation of the following test(s) in the Emergency Department EKG: See my EKG interpretation above X-Ray: My interpretation is CXR images show pulmonary edema, neg for pneumothorax per my interpretation. Test considered but Not performed: CT: CT PE not performed 2/2 elevated creatinine. Historians other than the Patient: Daughter/Son: Daughter. Care significantly affected by the following chronic conditions: Congestive Heart Failure, Chronic Kidney Disease. Counseling: I had a detailed discussion with the patient and/or guardian regarding: the historical points, exam findings, and any diagnostic results supporting the discharge/admit diagnosis, lab results, radiology results, the need for further work-up and treatment in the hospital. Response to treatment: the patient's symptoms have mildly improved after treatment, and as a result, I will admit patient. ED course: Pt with CHF and slowly worsening CKD, borderline BP that hasn't allowed lasix administration, but as long as not exerting himself, is doing ok and not emergent to force the lasix and drop his pressure, will admit to Dr. Quiros for further care and diuresis. . 08/22 13:44 Order name: BMP; Complete Time: 15:41 08/22 13:44 Order name: Blood Culture Adult (2) rn 08/22 13:44 Order name: CBC with Diff; Complete Time: 15:07 rn 08/22 13:44 Order name: Hepatic Function; Complete Time: 15:41 rn 08/22 13:44 Order name: NT PRO-BNP; Complete Time: 15:41 08/22 13:44 Order name: PT-INR; Complete Time: 15:07 08/22 13:44 Order name: Ptt, Activated; Complete Time: 15:07 08/22 13:44 Order name: Troponin HS; Complete Time: 15:41 rn 08/22 14:40 Order name: SARS RAPID rn 08/22 13:44 Order name: XRAY CXR (1 view); Complete Time: 16:01 08/22 13:44 Order name: EKG; Complete Time: 13:45 08/22 13:44 Order name: Cardiac monitoring; Complete Time: 14:38 08/22 13:44 Order name: EKG - Nurse/Tech; Complete Time: 14:38 08/22 13:44 Order name: IV Saline Lock; Complete Time: 14:07 08/22 13:44 Order name: Labs collected and sent; Complete Time: 14:38 rn 08/22 13:44 Order name: O2 Per Protocol; Complete Time: 14:38 rn 08/22 13:44 Order name: O2 Sat Monitoring; Complete Time: 14:38 rn EC: Rate is 76 beats/min. Rhythm is regular. QRS is positive in lead I and negative in lead rn aVF. ND interval is normal. QRS interval is normal. QT interval is normal. No Q waves. T waves are Normal. No ST changes noted. Clinical impression: NSR w/ Non-specific ST/T Changes. Interpreted by me. Reviewed by me. Administered Medications: 16:15 Drug: HYDROcodone-acetaminophen PO 5 mg-325 mg 1 tabs Route: PO; tw5 16:41 Follow up: Response: No adverse reaction; Pain is decreased; RASS: Alert and Calm (0) tw5 16:19 Drug: Levalbuterol Inhalation 1.25 mg Route: Inhalation; tw5 16:33 Follow up: Response: No adverse reaction tw5 16:41 Drug: Furosemide IVP 20 mg Route: IVP; Site: right antecubital; tw5 17:58 Follow up: Response: No adverse reaction tw5 Disposition Summary: 08/22/22 16:23 Hospitalization Ordered Hospitalization Status: Inpatient Admission rn Provider: Armando Quiros rn [facility] rn Condition: Stable rn Problem: an acute exacerbation rn Symptoms: have improved rn Bed/Room Type: Standard rn Room Assignment: 220(08/22/22 17:42) iw Diagnosis - Unspecified combined systolic (congestive) and diastolic (congestive) heart failure rn - Acute pulmonary edema rn - Dyspnea, unspecified rn Forms: - Medication Reconciliation Form rn - SBAR form rn Signatures: Dispatcher [employer] EDMS Silvia Rodriguez RN RN Ervin Zayas MD MD rn Wood, Tiffany tw5 Corrections: (The following items were deleted from the chart) 15:45 13:45 Chest For PE Angio+CT.RAD.BRZ ordered. EDNJ EDMS 17:42 16:23 rn iw
[2022-08-22] MEDS ORDERED: FUROSEMIDE 20 MG/ 2ML VIAL ONE (16:31)
[2022-08-22 16:48] LABS: SARS-CoV-2 Antigen Rapid Res Negative (Negative)
[2022-08-22] MEDS ORDERED: ONDANSETRON 4 MG/2 ML VIAL IV PRN (19:43)
[2022-08-22] MEDS ORDERED: IPRATROPIUM BROM 0.5MG/2.5ML NEB PRN ×2 (19:43→21:22)
[2022-08-22] MEDS ORDERED: ALBUTEROL 2.5 MG/3 ML NEB SOL NEB PRN ×2 (19:43→21:21)
[2022-08-22] MEDS: METOPROLOL TAR 25 MG TAB PO SCH (21:17)
[2022-08-22] MEDS ORDERED: TRAMADOL HCL 50 MG TAB PO PRN (21:19)
[2022-08-22] MEDS: FENOFIBRATE 160 MG TAB PO SCH (23:13)
[2022-08-22] MEDS: PANTOPRAZOLE 40MG TABLET PO SCH (23:14)
[2022-08-22] MEDS: allopurinoL 300 MG TAB PO SCH (23:14)
[2022-08-23 04:22] LABS: Absolute Lymphocytes (CBC) 1.7 K/uL (0.7-4.9); Hematocrit 39.7 % (39.6-49.0); Lymphocytes % 24.5 % (15.3-44.8); MCV 93.3 fL (80-100); RBC Red Blood Cell Count 4.26 M/uL (4.33-5.43)
[2022-08-23 04:36] LABS: Potassium 4.1 mEq/L (3.5-5.1); Uric Acid 5.1 mg/dL (3.5-7.2)
[2022-08-23 04:39] LABS: Thyroid Stimulating Hormone 4.63 uIU/mL (0.358-3.740)
[2022-08-23] MEDS: METOPROLOL TAR 25 MG TAB PO SCH (05:21)
--- NOTE | 2022-08-23 07:47 | RAD REPORT ---
EXAM DESCRIPTION: Chelly Fountain And Philomena (2 Views)08/23/2022 5:35 am CLINICAL HISTORY: Shortness of breath COMPARISON: August 22, 2022 FINDINGS: The lungs appear clear of acute infiltrate. The heart is borderline enlarged. Postsurgical changes involve chest
[2022-08-23] MEDS ORDERED: TRAMADOL HCL 50 MG TAB PO PRN (09:06)
[2022-08-23] MEDS: FUROSEMIDE 20 MG/ 2ML VIAL IV SCH ×2 (10:13→17:41)
[2022-08-23] MEDS: LEVOTHYROXINE SOD 0.1 MG TAB PO SCH (10:14)
[2022-08-23] MEDS: ASPIRIN 81 MG CHEWABLE TABLET PO SCH (10:14)
[2022-08-23] MEDS: MONTELUKAST 10 MG TAB PO SCH (10:18)
[2022-08-23] MEDS ORDERED: ALBUTEROL 2.5 MG/3 ML NEB SOL NEB PRN (12:00)
--- NOTE | 2022-08-23 16:35 | CON ---
Date of Consultation: 08/23/2022 Reason For Consultation: Shortness of breath and heart failure. History Of Present Illness: This is a 72-year-old male with past medical history of hypertension, ch ronic back pain, asthma, hypothyroidism, presented to the emergency room with shortness of breath on exertion, lower extremity edema, and orthopnea. Started on Lasix and he is feeling better. Denies h aving any nausea or vomiting or chest pain. Past Medical History: As outlined above in the HPI. Medications: Refer to reconciliation sheet for detailed list. Allergies: NO KNOWN DRUG ALLERGIES. Family History: No premature coronary artery disease or cancer. Social History: He does not smoke or drink. Does not use any drugs. Review of Systems: All systems reviewed and they were negative except what mentioned in HPI. Physical Examination: Vital Signs: Reviewed. Head and Neck: Pupils are equal, reactive to light. Intact eye movements. No JVD. No cervical lym phadenopathy. Neck is supple. Thyroid is not enlarged. Lungs: Clear to auscultation bilaterally. No rhonchi, wheezing, or crackles. No accessory muscle u se. Heart: Regular rate and rhythm with late peaking aortic ejection systolic murmur. Abdomen: Soft, nontender. Bowel sounds positive. No organomegaly. No masses or hernia. No rigidi ty or rebound. Extremities: No edema, clubbing, or cyanosis. Intact pulses. Skin: No rash. Neurologic: Alert, awake, oriented x3. No acute focal deficits appreciated. Lymph Nodes: No cervical or axillary lymphadenopathy. Investigations: BUN 24, creatinine 1.7. Troponin x2 are 68 and 76. NT-proBNP is 2662. Assessment And Recommendations: 1.Acute congestive heart failure exacerbation. Agree with Lasix. Monitor carefully BUN, creatinine , and electrolytes. 2.Aortic valve stenosis, likely is the cause of his symptoms. Obtain echo to confirm severity of and plan for aortic valve replacement soon. 3.Elevated troponin. We will plan for a coronary angiogram prior to the valve replacement. SR/MODL Voice ID: [id number] Report ID: [id number]
--- NOTE | 2022-08-23 17:24 | EKG ---
Test Date: 2022-08-22 Test Time: 14:14:30 Cfa: TW MEASUREMENT RESULTS: Intervals: Rate: 76 TN: 166 QRSD: 116 QT: 414 QTc: 465 [place]: P: 52 TN: 166 QRS: -66 T: 106 INTERPRETIVE STATEMENTS: Normal sinus rhythm Pulmonary disease pattern Left anterior fascicular block Left ventricular hypertrophy with QRS widening and repolarization abnormality Cannot rule out Septal infarct, age undetermined Abnormal ECG Compared to ECG 12/29/2020 09:24:31 Early repolarization now present Myocardial infarct finding now present T-wave abnormality no longer present Possible ischemia no longer present Electronically Signed On 08-23-22 17:21:38 CDT by Dank Conn
[2022-08-23] MEDS ORDERED: allopurinoL 300 MG TAB PO SCH (21:00)
[2022-08-23] MEDS ORDERED: FENOFIBRATE 160 MG TAB PO SCH (21:00)
[2022-08-23] MEDS: METOPROLOL XL 25 MG TAB PO SCH (21:00)
[2022-08-23] MEDS ORDERED: HOME MED 1 EA UNK (Omeprazole [Prilosec] 40 MG Capsule.Dr) PO SCH (21:00)
[2022-08-23] MEDS: PANTOPRAZOLE 40MG TABLET PO SCH (21:09)
[2022-08-23] MEDS: FENOFIBRATE 160 MG TAB PO SCH (21:11)
[2022-08-23] MEDS: allopurinoL 300 MG TAB PO SCH (21:11)
[2022-08-23] MEDS: ATORVASTATIN 20 MG TAB PO SCH (21:11)
[2022-08-23] MEDS: TEMAZEPAM 15 MG CAP PO PRN (21:15)
[2022-08-24] MEDS: METOPROLOL XL 25 MG TAB PO SCH ×2 (06:24→21:00)
[2022-08-24] MEDS: ASPIRIN 81 MG CHEWABLE TABLET PO SCH (06:25)
[2022-08-24 06:33] VITALS: BMI 32.1
--- NOTE | 2022-08-24 07:17 | ECHO ---
HEIGHT: 5 ft 9 in WEIGHT: 217 lb 14.4 oz DATE OF STUDY: REFER DR: Armando Quiros MD 2-DIMENSIONAL: YES M.MODE: YES DOPPLER: YES COLOR FLOW: YES TDS: PORTABLE: YES DEFINITY: BUBBLE STUDY: DIAGNOSIS: CONGESTIVE HEART FAILURE CARDIAC HISTORY: CATHERIZATION: YES SURGERY: CABG TIMES FOUR PROSTHETIC VALVE: PACEMAKER: MEASUREMENTS (cm) DIASTOLIC (NORMALS) SYSTOLIC (NORMALS) IVSd 1.1 (0.6-1.2) LA Diam 4.6 (1.9-4.0) LVEF 45-50% LVIDd 4.6 (3.5-5.7) LVIDs 3.9 (2.0-3.5) %FS 16% LVPWd 1.3 (0.6-1.2) Ao Diam 3.5 (2.0-3.7) 2 DIMENSIONAL ASSESSMENT: RIGHT ATRIUM: NORMAL LEFT ATRIUM: ENLARGED RIGHT VENTRICLE: NORMAL LEFT VENTRICLE: NORMAL TRICUSPID VALVE: MILD TRICUSPID REGURGITATION MITRAL VALVE: NORMAL PULMONIC VALVE: MILD PULMONIC INSUFFICIENCY AORTIC VALVE: HEAVILY CALCIFIED PERICARDIAL EFFUSION: NONE AORTIC ROOT: NORMAL LEFT VENTRICULAR WALL MOTION: MILD APICAL HYPOKINESIS DOPPLER/COLOR FLOW: SEE BELOW COMMENTS: 1. MILDLY DEPRESSED LEFT VENTRICULAR EJECTION FRACTION 45-50% 2. MILD APICAL HYPOKINESIS 3. QUESTIONABLE LEFT VENTRICULAR APICAL THROMBUS 4. HEAVILY CALCIFIED AORTIC VALVE WITH SEVERE AORTIC STENOSIS WITH MAX VELOCITY OF 4.5 m/s WITH MEAN GRADIENT OF 51 mmHg. TECHNOLOGIST: TESSA HYMAN
[2022-08-24] MEDS: LEVOTHYROXINE SOD 0.1 MG TAB PO SCH (09:00)
[2022-08-24] MEDS: FUROSEMIDE 20 MG/ 2ML VIAL IV SCH ×2 (09:39→16:20)
[2022-08-24] MEDS ORDERED: MIDAZOLAM HCL 2 MG/2 ML INJ ONE (11:53)
[2022-08-24] MEDS ORDERED: HEPARIN 10,000 UNIT/10 ML VIAL IV ONE (11:53)
[2022-08-24] MEDS ORDERED: FENTANYL CITR 100 MCG/2 ML ONE (11:53)
[2022-08-24] MEDS ORDERED: TICAGRELOR 90 MG TABLET PO ONE (11:53)
[2022-08-24] MEDS ORDERED: ASPIRIN 325 MG TAB ONE (11:53)
[2022-08-24] MEDS ORDERED: CLOPIDOGREL 75 MG TABLET ONE (11:53)
[2022-08-24] MEDS ORDERED: HEPA 1000U/500MLS 2,000 UNIT/1,000 ML BAG IV ONE (11:54)
[2022-08-24] MEDS ORDERED: ATROPINE SULF 1 MG/10 ML SYR IV ONE (11:54)
[2022-08-24] MEDS ORDERED: NA CHLORIDE 0.9% 500 ML ONE (11:54)
[2022-08-24] MEDS ORDERED: LIDOCAINE 1% 20 ML MDV ONE (11:54)
--- NOTE | 2022-08-24 13:29 | PN ---
Date of Progress Note: 08/24/2022 Subjective: Seen by bedside, doing clinically well. Breathing is better. Review of Systems: No chest pain. No resting shortness of breath. No nausea, vomiting, diarrhea. No history of urinar y urgency. All other systems reviewed are negative. Physical Examination: Vital signs: Reviewed. Head and Neck: Pupils are equal, reactive to light. Intact eye movements. No JVD. No cervical klaudia nopathy. Neck is supple. Thyroid is not enlarged. Lungs: Clear to auscultation bilaterally. No rhonchi, wheezing, or crackles. No accessory muscle u se. Heart: Regular rate and rhythm. No extra sounds. Abdomen: Soft, nontender. Bowel sounds positive. No organomegaly. No masses, no hernia. No rigid ity or rebound. Extremities: No edema, clubbing, or cyanosis. Intact pulses. Skin: No rash. Neurologic: Alert, awake, oriented x3. No acute focal deficits appreciated. Lymph nodes: No cervical or axillary lymphadenopathy. Investigations: Labs were reviewed. Assessment/recommendations: 1.Severe aortic valve stenosis, comes in with acute heart failure, mildly depressed ejection fractio n, and he has troponin leak. Obtain coronary angiogram as a first step towards the aortic valve repl acement and plan for transcatheter aortic valve replacement shortly after discharge. 2.Acute systolic congestive heart failure exacerbation. I will obtain coronary angiogram as above a nd he needs aortic valve replaced, for which a process was started. 3.Chronic kidney failure and creatinine is stable. Repeat basic metabolic panel today. 4.Dyslipidemia. Continue statin. SR/MODL Voice ID: [id number] Report ID: [id number]
--- NOTE | 2022-08-24 13:52 | PN ---
Date of Progress Note: 08/23/2022 The patient states he feels somewhat better, although he is still dyspneic with exertion, somewhat dy spneic at rest. The patient underwent an echo, which showed significant aortic stenosis, which obvio usly will need to be addressed. He was seen by Cardiology and scheduled for a catheterization in the a.m. HR/MODL Voice ID: [id number] Report ID: [id number]
[2022-08-24] MEDS ORDERED: MORPHINE 2 MG/ML SYR IV PRN (14:03)
[2022-08-24 14:46] LABS: Potassium 3.9 mEq/L (3.5-5.1)
[2022-08-24] MEDS ORDERED: MEPERIDINE HCL 25 MG/ML SYR IV PRN (14:46)
[2022-08-24] MEDS ORDERED: MORPHINE 4 MG/ML SYR IV PRN (14:55)
[2022-08-24] MEDS ORDERED: MORPHINE 2 MG/ML SYR IV ONE (15:00)
--- NOTE | 2022-08-24 16:53 | OP ---
Date of Procedure: 08/24/2022 Surgeon: AILEEN DOYLE Procedure Performed: Selective coronary angiogram with bypass graft study. Indication: 1.Elevated troponin. 2.Preparation for aortic valve replacement. Access: Right femoral artery 4-Mohawk closed with manual pressure. Complications: None. Bleeding: Less than 10 mL. Anesthesia: Total sedation time was 45 minutes. Used fentanyl and Versed. Description Of Procedure: After risks, benefits, and alternatives were explained, the patient agreed to procedure and signed informed consent. The patient was brought into the cardiac catheterization laboratory, prepped and draped in the usual sterile fashion. Then, I accessed the right femoral alen ry using a micropuncture kit, fluoroscopy and ultrasound guidance, placed 4-[place] sheath. Then, I took 4-[place]awk JL4 catheter into the aortic root, engaged the left main, took standard views, and then exchanged for 6-[place] JR4 catheter, engaged the RCA, SVG to RCA, SVG to diagonal, and there was another SVG that is occluded, and then the catheter was advanced into the subclavian artery and I engaged the PERRY and took standard views. Catheter then was removed and sheath was removed. Manua l pressure was applied for closure with good hemostasis. Findings: 1.Left main; ostial 80%, then the LAD proximal segment has diffuse 70% to 80% and then becomes [employer] r ight after the diagonal branch takeoff. 2.Left circumflex; extremely small and probably occluded. 3.RCA; apparently it is a dominant circulation, proximal 80%, multiple tandem lesions ranging betwee n 60% and 80%. Graft Study: 1.Patent SVG to RCA. 2.Patent SVG to diagonal branch 1. 3.Patent PERRY to LAD. 4.Occluded SVG, unsure which artery is probably the left circumflex, which is very small on angiogra m. Conclusion: Severe [place] coronary artery disease with patent SVG to RCA, patent SVG to diagonal 1, and patent PERRY to LAD and occluded SVG to left circumflex, but left circumflex is a small artery. Plan: Continue medical management for coronary artery disease and proceed with TAVR as planned. SR/MODL Voice ID: [id number] Report ID: [id number]
[2022-08-24] MEDS: allopurinoL 300 MG TAB PO SCH (20:58)
[2022-08-24] MEDS: FENOFIBRATE 160 MG TAB PO SCH (20:59)
[2022-08-24] MEDS: PANTOPRAZOLE 40MG TABLET PO SCH (20:59)
[2022-08-24] MEDS: ATORVASTATIN 20 MG TAB PO SCH (20:59)
[2022-08-24] MEDS: TEMAZEPAM 15 MG CAP PO PRN (20:59)
[2022-08-25] MEDS: LEVOTHYROXINE SOD 0.1 MG TAB PO SCH (06:36)
[2022-08-25 08:25] VITALS: TEMP 97.3
[2022-08-25] MEDS: FUROSEMIDE 20 MG/ 2ML VIAL IV SCH (08:48)
[2022-08-25] MEDS: ASPIRIN 81 MG CHEWABLE TABLET PO SCH (08:48)
[2022-08-25] MEDS: METOPROLOL XL 25 MG TAB PO SCH (08:50)
[2022-08-25] MEDS: MONTELUKAST 10 MG TAB PO SCH (08:51)
[2022-08-25 08:52] VITALS: BP 99/68
[2022-08-25 17:29] VITALS: O2SAT 93
--- NOTE | 2022-08-28 11:54 | PN ---
Date of Progress Note: 08/24/2022 The patient is now postcath shows some valvular problem. Postop, there are some problems controlling the same. We used various narcotics and perhaps add Robaxin IV to his regimen. Plan kyree l be to discharge him assuming things are stable tomorrow and follow up for valve placement workup. Creatinine is now down to 1.4. Diuresis is probably necessary as an outpatient basis. We will evalu ate him further next week and follow up with Cardiology as well. HR/MODL Voice ID: [id number] Report ID: [id number]
== END 2022-08-25 11:24 | disposition home or self-care (01) | DRG 286 ==
LOC: ER 13:40 → ERHOLD 17:13 → 2ND 18:16
PROVIDERS: ADMIT Family Medicine; ATTEND Family Medicine
PROC: 4A023N7 Measurement of Cardiac Sampling and Pressure, Left Heart, Percutaneous Approach (ICD-10-PCS; principal; 2022-08-24)
PROC: B2111ZZ Fluoroscopy of Multiple Coronary Arteries using Low Osmolar Contrast (ICD-10-PCS; 2022-08-24)
PROC: B2181ZZ Fluoroscopy of Left Internal Mammary Bypass Graft using Low Osmolar Contrast (ICD-10-PCS; 2022-08-24)
PROC: B21F1ZZ Fluoroscopy of Other Bypass Graft using Low Osmolar Contrast (ICD-10-PCS; 2022-08-24)
DX: I35.0 Nonrheumatic aortic (valve) stenosis (principal); I50.23 Acute on chronic systolic (congestive) heart failure; I13.0 Hypertensive heart and chronic kidney disease with heart failure and stage 1 through stage 4 chronic kidney disease, or unspecified chronic kidney disease; N18.9 Chronic kidney disease, unspecified; E03.9 Hypothyroidism, unspecified; M10.9 Gout, unspecified; G89.29 Other chronic pain; M54.9 Dorsalgia, unspecified; E78.5 Hyperlipidemia, unspecified; J45.909 Unspecified asthma, uncomplicated; I25.10 Atherosclerotic heart disease of native coronary artery without angina pectoris; R77.8 Other specified abnormalities of plasma proteins; Z88.1 Allergy status to other antibiotic agents; Z95.1 Presence of aortocoronary bypass graft; Z90.49 Acquired absence of other specified parts of digestive tract; Z87.891 Personal history of nicotine dependence; Z20.822 Contact with and (suspected) exposure to COVID-19
CPT/HCPCS: 36415; 71045; 71046; 76937; 80048; 80076; 83880; 84439; 84443; 84484; 84550; 85025; 85610; 85730; 87040; 87811; 93005; 93306; 93455; 94640; 96374; 99285; C1893; J0461; J1940; J2001; J2250; J2270; J3010; J7040; J7613; J7614; J7644

== ENCOUNTER 2022-10-04 10:24 | Day surgery (SDC) | payer OTHER ==
[2022-10-04] MEDS ORDERED: NA CHLORIDE 0.9% 500 ML ONE (10:45)
[2022-10-04] MEDS ORDERED: FENTANYL CITR 100 MCG/2 ML ONE (11:39)
[2022-10-04] MEDS ORDERED: FLUMAZENIL 0.1 MG/ML (5 mL VIAL) IV ONE (11:40)
[2022-10-04] MEDS ORDERED: METOPROLOL TARTRATE 5 MG/5 ML INJ IV ONE (11:40)
[2022-10-04] MEDS ORDERED: MIDAZOLAM HCL 2 MG/2 ML INJ ONE (11:40)
[2022-10-04] MEDS ORDERED: NALOXONE 0.4 MG/ML VIAL ONE (11:40)
[2022-10-04] MEDS ORDERED: MIDAZOLAM HCL 0 ML ONE (11:40)
[2022-10-04] MEDS ORDERED: PHENOL 1.4% ORAL SPRAY 180ML ONE (11:41)
[2022-10-04] MEDS ORDERED: LIDOCAINE VISCOUS 2% SOLN 15 ML UDC ONE ×2 (11:41→13:04)
[2022-10-04] MEDS ORDERED: ATROPINE SULF 1 MG/10 ML SYR IV ONE (11:41)
--- NOTE | 2022-10-04 15:03 | OP ---
Date of Procedure: 10/04/2022 Surgeon: AILEEN DOYLE Procedure Performed: Transesophageal echocardiogram. Indication: Questionable apical LV thrombus on multiple echoes and the patient is being prepared to have TAVR done. DAVION was ordered to evaluate the presence of the apical LV thrombus before proceeding with TAVR. Description Of Procedure: After risks, benefits, and alternatives were explained, the patient agreed to procedure and signed informed consent. The patient was brought into the cardiac catheterization laboratory and then after using the lidocaine gel, numbing the back of the throat, I inserted the DAVION probe without difficulties and DAVION was performed. No LV thrombus was found. DAVION probe was removed. The patient tolerated the procedure very well, transferred to recovery in stable condition. Conclusion: 1.No LV thrombus seen. 2.Severe aortic valve stenosis. Plan: We will proceed with TAVR. /REXL Voice ID: [id number] Report ID: [id number]
[2022-10-04 15:29] VITALS: BP 103/66; TEMP 97.6; O2SAT 95
--- NOTE | 2022-10-05 08:25 | TEE ---
TRANSESOPHAGEAL ECHOCARDIOGRAM REPORT CARDIOLOGY DEPARTMENT DATE OF STUDY: 10/04/22 HEIGHT: 5'9" WEIGHT: 220 DIAGNOSIS: RULE OUT LEFT VENTRICULAR THROMBUS REHAB OFFICE COORDINATOR COMMENTS: CARDIAC HISTORY: CATHERIZATION: SURGERY: PROSTHETIC VALVE: PACEMAKER: 2 DIMENSIONAL ASSESSMENT: RIGHT ATRIUM: LEFT ATRIUM: RIGHT VENTRICLE: LEFT VENTRICLE: TRICUSPID VALVE: MITRAL VALVE: PULMONIC VALVE: AORTIC VALVE: PERICARDIAL EFFUSION: AORTIC ROOT: EJECTION FRACTION: LEFT VENTRICULAR WALL MOTION: DOPPLER/COLOR FLOW: COMMENTS: TRANSESOPHAGEAL ECHOCARDIOGRAM PERFORMED WITHOUT DIFFICULTY NO LEFT VENTRICULAR THROMBUS IS SEEN SEVERE AORTIC STENOSIS MILD MITRAL REGURGITATION TECHNOLOGIST: DR. DOYLE/ TESSA TRUJILLO
== END 2022-10-04 13:20 | disposition home or self-care (01) ==
LOC: EKG 10:24
PROVIDERS: ATTEND Internal Medicine
DX: I35.0 Nonrheumatic aortic (valve) stenosis (principal); I25.10 Atherosclerotic heart disease of native coronary artery without angina pectoris; I50.9 Heart failure, unspecified; I34.0 Nonrheumatic mitral (valve) insufficiency; I71.40 Abdominal aortic aneurysm, without rupture, unspecified; E78.5 Hyperlipidemia, unspecified; K21.9 Gastro-esophageal reflux disease without esophagitis; J44.9 Chronic obstructive pulmonary disease, unspecified; E03.9 Hypothyroidism, unspecified; Z95.1 Presence of aortocoronary bypass graft; Z87.891 Personal history of nicotine dependence; Z85.828 Personal history of other malignant neoplasm of skin; Z79.899 Other long term (current) drug therapy; Z88.1 Allergy status to other antibiotic agents
CPT/HCPCS: 93312; J3010; J7040; J0461; J2250; J2310